=== PATIENT | male | born 1980 | race Caucasian/White ===

== ENCOUNTER 2020-05-30 23:06 | Inpatient (IN) | payer MEDICAID ==
[~2020-05-30] VITALS: Ht 188 cm; Wt 90.9 kg
[2020-05-31] VITALS (14 sets, daily range): BP systolic 97–138; BP diastolic 52–81
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
[2020-05-31] MEDS ORDERED: FAMOTIDINE 20 MG TABLET. PO ONE (00:30)
[2020-05-31] MEDS ORDERED: IV NORMAL SALINE 500ML BAG 500 ML IV ONE (00:30)
[2020-05-31] MEDS ORDERED: MAG HYDROX/ALUMINUM HYD/SIMETH 30 ML ORAL.SUSP PO ONE (00:30)
[2020-05-31] MEDS ORDERED: ONDANSETRON PF 4 MG/2 ML VIAL. IVP ONE (00:30)
--- NOTE | 2020-05-31 00:59 | RAD ---
INDICATION: Reason: COUGH / Spl. Instructions: / History: COMPARISON: May 21, 2020 FINDINGS: Single view of chest obtained. Cardiac silhouette is similar to prior. No definite new region of consolidation or edema. IMPRESSION: * No focal airspace consolidation or edema. Electronically signed by: Kadeem Cassidy MD (05/31/2020 12:56 AM) [id number]
[2020-05-31 01:13] LABS: BASO % 1 % (0-3); EOS % 1 % (0-3); HEMATOCRIT 37.2 % (39.0-53.0); HEMOGLOBIN 12.6 g/dL (13.0-17.5); LYMPH # 1.2 x10^3/uL (1.0-4.8); LYMPH % 33 % (24-48); MEAN CORPUSCULAR HEMOGLOBIN 33 pg (25-35); MEAN CORPUSCULAR HGB CONC 34 g/dL (31-37); MEAN CORPUSCULAR VOLUME 96 fL (79-100); MONO # 0.4 x10^3/uL (0.0-1.1); MONO % 11 % (0-9); NEUT % 54 % (31-73); PLATELET COUNT 131 x10^3/uL (140-400); RED BLOOD COUNT 3.88 x10^6/uL (4.30-5.70); RED CELL DISTRIBUTION WIDTH 14.7 % (11.5-14.5); WHITE BLOOD COUNT 3.6 x10^3/uL (4.0-11.0)
[2020-05-31 01:19] LABS: CALCIUM 8.4 mg/dL (8.5-10.1); CREATININE 1.3 mg/dL (0.7-1.3); GFR 61.8; POTASSIUM 3.5 mmol/L (3.5-5.1); PROTHROMBIN TIME PATIENT 12.4 SEC (11.7-14.0)
[2020-05-31 01:25] LABS: ALBUMIN 3.4 g/dL (3.4-5.0); ALBUMIN/GLOBULIN RATIO 1.1 (1.0-1.7); TOTAL BILIRUBIN 0.2 mg/dL (0.2-1.0); TOTAL PROTEIN 6.4 g/dL (6.4-8.2)
[2020-05-31] MEDS ORDERED: CONTRAST GIVEN. MC PRN (02:15)
[2020-05-31] MEDS ORDERED: IOHEXOL 300 MG/ML 100ML VIAL. IV ONE (02:30)
[2020-05-31 02:52] LABS: BILIRUBIN,URINE NEGATIVE (NEG); CLARITY,URINE CLEAR; COLOR,URINE YELLOW; NITRITE,URINE NEGATIVE (NEG); PH,URINE 6.5 (<5.0-8.0); PROTEIN,URINE NEGATIVE (NEG-TRACE); UROBILINOGEN,URINE 0.2 mg/dL (0.2 mg/dL)
[2020-05-31 03:00] LABS: BACTERIA,URINE 0 /HPF (0-FEW); RBC,URINE 0 /HPF (0-2); SQUAMOUS EPITHELIAL CELL,UR OCC /LPF; WBC,URINE OCC /HPF (0-4)
--- NOTE | 2020-05-31 03:28 | RAD ---
INDICATION: Reason: fb IN RECTUM OMNI 300, 75 ML IV / Spl. Instructions: / History: COMPARISON: None. TECHNIQUE: Axial CT images obtained through the abdomen and pelvis with contrast. One or more of the following individualized dose reduction techniques were utilized for this examination: 1. Automated exposure control; 2. Adjustment of the mA and/or kV according to patient size; 3. Use of iterative reconstruction technique. FINDINGS: Abdominal aorta is nonaneurysmal. No intrahepatic bile duct dilation. No peripancreatic fluid collection. Spleen unremarkable. No hydronephrosis. Excreted contrast in the kidneys and urinary bladder with some air in the urinary bladder. There are 2 high density foreign bodies seen within the distal sigmoid and rectal region. They measure approximately 50 x 15 mm each with one of them more vertically oriented and the other more horizontally oriented. There is some adjacent haziness to the fat. No evidence of bowel obstruction. Definite intraperitoneal free air is not seen. Postoperative changes to the disc space at L4-5 with metallic spacer. IMPRESSION: * There are 2 high density foreign bodies seen within the distal sigmoid to rectal region. There is some adjacent edema in the fat which could be from associated inflammation of the bowel but no adjacent free air is identified. Electronically signed by: Kadeem Cassidy MD (05/31/2020 3:25 AM) [id number]
[2020-05-31] MEDS ORDERED: fentaNYL PF VIAL 100 MCG/2 ML VIAL IV PRN (04:15)
[2020-05-31] MEDS ORDERED: PIPERACILLIN/TAZOBACTAM 4.5 GM in IV NORMAL SALINE 100ML 100 ML IV ONE (04:30)
[2020-05-31] MEDS ORDERED: PANTOPRAZOLE IV PUSH 40 MG VIAL. IVP ONE ×2 (04:30→10:45)
[2020-05-31] MEDS ORDERED: HYDROmorphone 2 MG/ML VIAL IV ONE (04:30)
[2020-05-31] MEDS: IV NORMAL SALINE 1000ML BAG 1,000 ML IV SCH ×2 (06:18→17:50)
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
[2020-05-31] MEDS ORDERED: IV RINGERS,LACTATED 1000ML 1,000 ML IV SCH (08:19)
[2020-05-31] MEDS ORDERED: PROCHLORPERAZINE 10 MG/2 ML VIAL. IV PRN (08:30)
[2020-05-31] MEDS ORDERED: ONDANSETRON PF 4 MG/2 ML VIAL. IV PRN (08:30)
[2020-05-31] MEDS ORDERED: KETOROLAC 30 MG/ML VIAL. ONE (08:48)
[2020-05-31] MEDS ORDERED: PROPOFOL 10 MG/ML (20ML) VIAL. IV ONE ×2 (08:48→11:36)
[2020-05-31] MEDS ORDERED: SEVOFLURANE 16 TO 30 MINUTES. IH ONE (08:48)
[2020-05-31] MEDS ORDERED: LIDOCAINE 2% PF 5 ML VIAL. ONE ×2 (08:48→11:36)
[2020-05-31] MEDS ORDERED: ONDANSETRON PF 4 MG/2 ML VIAL. ONE (08:49)
[2020-05-31] MEDS ORDERED: DEXAMETHASONE SOD PHOS 4 MG/ML VIAL ONE (08:49)
[2020-05-31] MEDS ORDERED: ROCURONIUM 50 MG/5 ML VIAL. ONE (08:52)
--- NOTE | 2020-05-31 09:00 | PDOC1 ---
History and Physical Date of Admission Date of Admission DATE: 05/31/20 TIME: 08:56 History of Present Illness History of Present Illness Mr. Garcia, is a 39 year old male admiited for worsening abd pain, pain and pressure, and taken to the OR this AM for a foreign body in his rectum. Patient states that for the last 2 weeks he has had pain constantly in his epigastrium described as a pressure sensation that does not seem to radiate but is constant. he also vomited blood yesterday. However he denies melena, hematochezia or change in stool. taken to the OR this AM with Dr. Crow, Past Medical History Cardiovascular: No pertinent hx Pulmonary: No pertinent hx GI: No pertinent hx Heme/Onc: No pertinent hx Hepatobiliary: No pertinent hx Psych: No pertinent hx Rheumatologic: No pertinent hx Infectious disease: No pertinent hx ENT: No pertinent hx Renal/: No pertinent hx Endocrine: No pertinent hx Dermatology: No pertinent hx Past Surgical History Past Surgical History: No pertinent history Family History Family History: No Significant Social History Smoke: <1 pack per day ALCOHOL: occassional Drugs: None Current Problem List Problem List Problems Medical Problems: (1) Foreign body in colon, initial encounter Status: Acute (2) Vomiting of blood Status: Acute Current Medications Current Medications Current Medications Al Hydroxide/Mg Hydroxide (Mylanta Plus Xs) 30 ml 1X ONCE PO Last administered on 05/31/20at 01:11; Start 05/31/20 at 00:30; Stop 05/31/20 at 00:31; Status DC Sodium Chloride 500 ml @ 500 mls/hr 1X ONCE IV Last administered on 05/31/20at 01:11; Start 05/31/20 at 00:30; Stop 05/31/20 at 01:29; Status DC Famotidine (Pepcid) 20 mg 1X ONCE PO Last administered on 05/31/20at 01:11; Start 05/31/20 at 00:30; Stop 05/31/20 at 00:31; Status DC Ondansetron HCl (Zofran) 4 mg 1X ONCE IVP Last administered on 05/31/20at 01:11; Start 05/31/20 at 00:30; Stop 05/31/20 at 00:31; Status DC Iohexol (Omnipaque 300 Mg/ml) 75 ml 1X ONCE IV Last administered on 05/31/20at 02:45; Start 05/31/20 at 02:30; Stop 05/31/20 at 02:31; Status DC Info (CONTRAST GIVEN -- Rx MONITORING) 1 each PRN DAILY PRN MC SEE COMMENTS; Start 05/31/20 at 02:15; Stop 06/02/20 at 02:14 Hydromorphone HCl (Dilaudid) 1 mg 1X ONCE IV Last administered on 05/31/20at 04:57; Start 05/31/20 at 04:30; Stop 05/31/20 at 04:31; Status DC Piperacillin Sod/ Tazobactam Sod 4.5 gm/Sodium Chloride 100 ml @ 200 mls/hr 1X ONCE IV Last administered on 05/31/20at 04:56; Start 05/31/20 at 04:30; Stop 05/31/20 at 04:59; Status DC Fentanyl Citrate (Fentanyl 2ml Vial) 50 mcg PRN Q1HR PRN IV SEVERE PAIN 7-10 Last administered on 05/31/20at 07:49; Start 05/31/20 at 04:15; Stop 06/01/20 at 04:14 Sodium Chloride 1,000 ml @ 75 mls/hr [id number] IV Last administered on 05/31/20at 06:18; Start 05/31/20 at 04:30; Stop 06/01/20 at 04:29 Pantoprazole Sodium (PROTONIX VIAL for IV PUSH) 80 mg 1X ONCE IVP Last administered on 05/31/20at 06:18; Start 05/31/20 at 04:30; Stop 05/31/20 at 04:31; Status DC Ondansetron HCl (Zofran) 4 mg PRN Q6HRS PRN IV NAUSEA/VOMITING; Start 05/31/20 at 08:30; Stop 06/01/20 at 08:29 Ringer's Solution 1,000 ml @ 30 mls/hr Q24H IV ; Start 05/31/20 at 08:19; Stop 05/31/20 at 20:18 Prochlorperazine Edisylate (Compazine) 5 mg PACU PRN PRN IV NAUSEA, MRX1; Start 05/31/20 at 08:30; Stop 06/01/20 at 08:29 Sevoflurane (Ultane) 15 ml STK-MED ONCE IH ; Start 05/31/20 at 08:48; Stop 05/31/20 at 08:49; Status DC Propofol (Diprivan) 200 mg STK-MED ONCE IV ; Start 05/31/20 at 08:48; Stop 05/31/20 at 08:49; Status DC Lidocaine HCl (Lidocaine Pf 2% Vial) 5 ml STK-MED ONCE .ROUTE ; Start 05/31/20 at 08:48; Stop 05/31/20 at 08:49; Status DC Ketorolac Tromethamine (Toradol 30mg Vial) 30 mg STK-MED ONCE .ROUTE ; Start 05/31/20 at 08:48; Stop 05/31/20 at 08:49; Status DC Ondansetron HCl (Zofran) 4 mg STK-MED ONCE .ROUTE ; Start 05/31/20 at 08:49; Stop 05/31/20 at 08:49; Status DC Dexamethasone Sodium Phosphate (Decadron) 4 mg STK-MED ONCE .ROUTE ; Start 05/31/20 at 08:49; Stop 05/31/20 at 08:49; Status DC Rocuronium [place] (Zemuron) 50 mg STK-MED ONCE .ROUTE ; Start 05/31/20 at 08:52; Stop 05/31/20 at 08:53; Status DC Allergies Allergies: Coded Allergies: ketorolac (Verified Allergy, Severe, hives, 05/31/20) morphine (Verified Allergy, Severe, hives, 05/31/20) prochlorperazine (Verified Allergy, Intermediate, restlessness, 05/31/20) ROS General: No: Chills, Night Sweats, Fatigue, Malaise, Appetite, Other PSYCHOLOGICAL ROS: No: Anxiety, Behavioral Disorder, Concentration difficultie, Decreased libido, Depression, Disorientation, Hallucinations, Hostility, Irritablity, Memory difficulties, Mood Swings, Obsessive thoughts, Physical abuse, Sexual abuse, Sleep disturbances, Suicidal ideation, Other Eyes: No Blurry vision, No Decreased vision, No Double vision, No Dry eyes, No Excessive tearing, No Eye Pain, No Itchy Eyes, No Loss of vision, No Photophobia, No Scotomata, No Uses contacts, No Uses glasses, No Other HEENT: No: Heacaches, Visual Changes, Hearing change, Nasal congestion, Nasal discharge, Oral lesions, Sinus pain, Sore Throat, Epistaxis, Sneezing, Snoring, Tinnitus, Vertigo, Vocal changes, Other Respiratory: No: Cough, Hemoptysis, Orthopnea, Pleuritic Pain, Shortness of breath, SOB with excertion, Sputum Changes, Stridor, Tachypnea, Wheezing, Other Cardiovascular: No Chest Pain, No Palpitations, No Orthopnea, No Paroxysmal Noc. Dyspnea, No Edema, No Lt Headedness, No Other Gastrointestinal: Yes Other (burn); No Nausea, No Vomiting, No Abdominal Pain, No Diarrhea, No Constipation, No Melena, No Hematochezia Genitourinary: No Dysuria, No Frequency, No Incontinence, No Hematuria, No Retention, No Discharge, No Urgency, No Pain, No Flank Pain, No Other, No , No , No , No , No , No , No Musculoskeletal: No Gait Disturbance, No Joint Pain, No Joint Stiffness, No Joint Swelling, No Muscle Pain, No Muscular Weakness, No Pain In:, No Swelling In:, No Other Neurological: No Behavorial Changes, No Bowel/Bladder ControlChng, No Confusion, No Dizziness, No Gait Disturbance, No Headaches, No Impaired Coord/balance, No Memory Loss, No Numbness/Tingling, No Seizures, No Speech Problems, No Tremors, No Visual Changes, No Weakness, No Other Skin: No Dry Skin, No Eczema, No Hair Changes, No Lumps, No Mole Changes, No Mottling, No Nail Changes, No Pruritus, No Rash, No Skin Lesion Changes, No Other, No Acne Physical Exam General: Alert, Cooperative HEENT: Atraumatic Extremities: No edema Skin: No rashes Neuro: Normal tone Psych/Mental Status: Mood NL Vitals Vitals Vital Signs Date Time Temp Pulse Resp B/P (MAP) Pulse Ox O2 Delivery O2 Flow Rate FiO2 05/31/20 08:26 16 Room Air 05/31/20 06:15 80 125/68 (87) 97 05/30/20 23:06 98.1 98.1 Labs Labs Laboratory Tests Test 05/31/20 00:58 05/31/20 02:43 05/31/20 05:05 White Blood Count 3.6 x10^3/uL (4.0-11.0) Red Blood Count 3.88 x10^6/uL (4.30-5.70) Hemoglobin 12.6 g/dL (13.0-17.5) Hematocrit 37.2 % (39.0-53.0) Mean Corpuscular Volume 96 fL (79-100) Mean Corpuscular Hemoglobin 33 pg (25-35) Mean Corpuscular Hemoglobin Concent 34 g/dL (31-37) Red Cell Distribution Width 14.7 % (11.5-14.5) Platelet Count 131 x10^3/uL (140-400) Neutrophils (%) (Auto) 54 % (31-73) Lymphocytes (%) (Auto) 33 % (24-48) Monocytes (%) (Auto) 11 % (0-9) Eosinophils (%) (Auto) 1 % (0-3) Basophils (%) (Auto) 1 % (0-3) Neutrophils # (Auto) 2.0 x10^3/uL (1.8-7.7) Lymphocytes # (Auto) 1.2 x10^3/uL (1.0-4.8) Monocytes # (Auto) 0.4 x10^3/uL (0.0-1.1) Eosinophils # (Auto) 0.0 x10^3/uL (0.0-0.7) Basophils # (Auto) 0.0 x10^3/uL (0.0-0.2) Prothrombin Time 12.4 SEC (11.7-14.0) Prothromb Time International Ratio 1.0 (0.8-1.1) Activated Partial Thromboplast Time 25 SEC (24-38) Sodium Level 147 mmol/L (136-145) Potassium Level 3.5 mmol/L (3.5-5.1) Chloride Level 108 mmol/L (98-107) Carbon Dioxide Level 29 mmol/L (21-32) Anion Gap 10 (6-14) Blood Urea Nitrogen 17 mg/dL (8-26) Creatinine 1.3 mg/dL (0.7-1.3) Estimated GFR (Cockcroft-Gault) 61.8 BUN/Creatinine Ratio 13 (6-20) Glucose Level 82 mg/dL (70-99) Calcium Level 8.4 mg/dL (8.5-10.1) Total Bilirubin 0.2 mg/dL (0.2-1.0) Aspartate Amino Transf (AST/SGOT) 140 U/L (15-37) Alanine Aminotransferase (ALT/SGPT) 181 U/L (16-63) Alkaline Phosphatase 43 U/L (46-116) Total Protein 6.4 g/dL (6.4-8.2) Albumin 3.4 g/dL (3.4-5.0) Albumin/Globulin Ratio 1.1 (1.0-1.7) Lipase 68 U/L (73-393) Urine Collection Type Unknown Urine Color Yellow Urine Clarity Clear Urine pH 6.5 (<5.0-8.0) Urine Specific Tropic >=1.030 (1.000-1.030) Urine Protein Negative mg/dL (NEG-TRACE) Urine Glucose (UA) Negative mg/dL (NEG) Urine Ketones (Stick) Negative mg/dL (NEG) Urine Blood Negative (NEG) Urine Nitrite Negative (NEG) Urine Bilirubin Negative (NEG) Urine Urobilinogen Dipstick 0.2 mg/dL (0.2 mg/dL) Urine Leukocyte Esterase Negative (NEG) Urine RBC 0 /HPF (0-2) Urine WBC Occ /HPF (0-4) Urine Squamous Epithelial Cells Occ /LPF Urine Bacteria 0 /HPF (0-FEW) Urine Mucus Slight /LPF SARS-CoV-2 Antigen (Rapid) Negative (NEGATIVE) Laboratory Tests Test 05/31/20 00:58 05/31/20 02:43 05/31/20 05:05 White Blood Count 3.6 x10^3/uL (4.0-11.0) Red Blood Count 3.88 x10^6/uL (4.30-5.70) Hemoglobin 12.6 g/dL (13.0-17.5) Hematocrit 37.2 % (39.0-53.0) Mean Corpuscular Volume 96 fL (79-100) Mean Corpuscular Hemoglobin 33 pg (25-35) Mean Corpuscular Hemoglobin Concent 34 g/dL (31-37) Red Cell Distribution Width 14.7 % (11.5-14.5) Platelet Count 131 x10^3/uL (140-400) Neutrophils (%) (Auto) 54 % (31-73) Lymphocytes (%) (Auto) 33 % (24-48) Monocytes (%) (Auto) 11 % (0-9) Eosinophils (%) (Auto) 1 % (0-3) Basophils (%) (Auto) 1 % (0-3) Neutrophils # (Auto) 2.0 x10^3/uL (1.8-7.7) Lymphocytes # (Auto) 1.2 x10^3/uL (1.0-4.8) Monocytes # (Auto) 0.4 x10^3/uL (0.0-1.1) Eosinophils # (Auto) 0.0 x10^3/uL (0.0-0.7) Basophils # (Auto) 0.0 x10^3/uL (0.0-0.2) Prothrombin Time 12.4 SEC (11.7-14.0) Prothromb Time International Ratio 1.0 (0.8-1.1) Activated Partial Thromboplast Time 25 SEC (24-38) Sodium Level 147 mmol/L (136-145) Potassium Level 3.5 mmol/L (3.5-5.1) Chloride Level 108 mmol/L (98-107) Carbon Dioxide Level 29 mmol/L (21-32) Anion Gap 10 (6-14) Blood Urea Nitrogen 17 mg/dL (8-26) Creatinine 1.3 mg/dL (0.7-1.3) Estimated GFR (Cockcroft-Gault) 61.8 BUN/Creatinine Ratio 13 (6-20) Glucose Level 82 mg/dL (70-99) Calcium Level 8.4 mg/dL (8.5-10.1) Total Bilirubin 0.2 mg/dL (0.2-1.0) Aspartate Amino Transf (AST/SGOT) 140 U/L (15-37) Alanine Aminotransferase (ALT/SGPT) 181 U/L (16-63) Alkaline Phosphatase 43 U/L (46-116) Total Protein 6.4 g/dL (6.4-8.2) Albumin 3.4 g/dL (3.4-5.0) Albumin/Globulin Ratio 1.1 (1.0-1.7) Lipase 68 U/L (73-393) Urine Collection Type Unknown Urine Color Yellow Urine Clarity Clear Urine pH 6.5 (<5.0-8.0) Urine Specific Tropic >=1.030 (1.000-1.030) Urine Protein Negative mg/dL (NEG-TRACE) Urine Glucose (UA) Negative mg/dL (NEG) Urine Ketones (Stick) Negative mg/dL (NEG) Urine Blood Negative (NEG) Urine Nitrite Negative (NEG) Urine Bilirubin Negative (NEG) Urine Urobilinogen Dipstick 0.2 mg/dL (0.2 mg/dL) Urine Leukocyte Esterase Negative (NEG) Urine RBC 0 /HPF (0-2) Urine WBC Occ /HPF (0-4) Urine Squamous Epithelial Cells Occ /LPF Urine Bacteria 0 /HPF (0-FEW) Urine Mucus Slight /LPF SARS-CoV-2 Antigen (Rapid) Negative (NEGATIVE) Images Images CT ABD * There are 2 high density foreign bodies seen within the distal sigmoid to rectal region. There is some adjacent edema in the fat which could be from associated inflammation of the bowel but no adjacent free air is identified. VTE Prophylaxis Ordered VTE Prophylaxis Devices: No VTE Pharmacological Prophylaxi: No Assessment/Plan Assessment/Plan to OR for surgery, foreign body removal from rectal, may need lap or open removal, if unable to remove through rectum, GERD foreign body rectum Justicifation of Admission Dx: Justifications for Admission: Justification of Admission Dx: Yes MADISON LEIVA MD May 31, 2020 09:00
[2020-05-31] MEDS ORDERED: ePHEDrine PF IN SALINE 50 MG/10 ML SYRINGE. IV ONE (09:40)
--- NOTE | 2020-05-31 09:49 | PDOC4 ---
Operative Note Operative Note Date: May 31, 2020 at 947 Preoperative diagnosis: Foreign body rectum Postoperative diagnosis: Same Procedure: Exam under anesthesia rigid proctoscopy with flexible sigmoidoscopy Surgeon: Tristin Specimen: Rectal foreign bodies x2 Dictation: Patient is a 39-year-old male admitted to the hospital with abdominal pain stating that he had a foreign body placed in the rectum and did not think it past CT scan shows foreign body within the rectosigmoid colon no evidence of perforation or free air. Procedure of exam under anesthesia with rigid proctoscopy flexible sigmoidoscopy possible laparotomy was explained to the patient detail risk benefits were also discussed including bleeding infection alternatives to this procedure also discussed with the patient who seemed to understand and gave both verbal and written consent to have the procedure performed. Patient was taken to the operating room placed in the supine position general anesthesia was initiated once patient was sleeping in bed is placed in the lithotomy positioning digital rectal exam was formed showed no masses or obstruction of the rectum a rigid proctoscope was then placed there was a small amount of stool within the rectal vault I did not see any foreign bodies this was passed about 12 cm still no foreign body seen in the right rigid proctoscope was removed and a flexible colonoscope was passed through the anus into the rectum passed cephalad at about 70 cm which all appeared to be normal n o evidence of perforation no foreign bodies were noted scope was retracted to the rectum a foreign body was then noted within the stool of the rectum the scope was removed using ring forceps the foreign body was grasped and removed a second foreign body was also removed. To be a package of Rolaids as well as Tums. Patient was awakened extubated in the operating room taken to recovery in stable condition all sponge instrument needle counts listed as correct estimated blood loss 0 DENNIS VARELA MD May 31, 2020 09:49
[2020-05-31] MEDS ORDERED: PROCHLORPERAZINE 10 MG/2 ML VIAL. ONE (10:04)
[2020-05-31] MEDS: fentaNYL PF VIAL 100 MCG/2 ML VIAL IVP PRN ×2 (10:15→10:30)
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
--- NOTE | 2020-05-31 12:33 | PDOC4 ---
PROCEDURE Procedure EGD Reported hematemesis , epigastric pain anesthesia - propofol E- mild distal esophagitis G- mild gastritis without ulcer D- mild duodenitis- without ulcer No Natalia Ellis seen - no source for hematemsis seen- Plan- pantoprazole GI cocktial OK for d/c later with outpt. follow up DRE MONTAÑO MD May 31, 2020 12:33
[2020-05-31] MEDS ORDERED: LIDO:MAALOX 1:1 20 ML SINGLE DOSE. PO PRN ×2 (12:45→14:15)
[2020-05-31] MEDS ORDERED: PANT20TA2 PO (13:58)
--- NOTE | 2020-05-31 14:02 | PDOC3 ---
Discharge Summary Visit Information Date of Admission: May 31, 2020 Date of Discharge: May 31, 2020 Final Diagnosis GERD foreign body rectum Problems Medical Problems: (1) Foreign body in colon, initial encounter Status: Acute (2) Vomiting of blood Status: Acute Brief Hospital Course Allergies Allergies Coded Allergies Type Severity Reaction Last Updated Verified ketorolac Allergy Severe hives 05/31/20 Yes morphine Allergy Severe hives 05/31/20 Yes prochlorperazine Allergy Intermediate restlessness 05/31/20 Yes Vital Signs Vital Signs Date Time Temp Pulse Resp B/P (MAP) Pulse Ox O2 Delivery O2 Flow Rate FiO2 05/31/20 13:00 97.9 75 20 138/78 (98) 96 Room Air 97.9 05/31/20 12:32 8 Lab Results Laboratory Tests Test 05/31/20 00:58 05/31/20 02:43 05/31/20 05:05 White Blood Count 3.6 x10^3/uL (4.0-11.0) Red Blood Count 3.88 x10^6/uL (4.30-5.70) Hemoglobin 12.6 g/dL (13.0-17.5) Hematocrit 37.2 % (39.0-53.0) Mean Corpuscular Volume 96 fL (79-100) Mean Corpuscular Hemoglobin 33 pg (25-35) Mean Corpuscular Hemoglobin Concent 34 g/dL (31-37) Red Cell Distribution Width 14.7 % (11.5-14.5) Platelet Count 131 x10^3/uL (140-400) Neutrophils (%) (Auto) 54 % (31-73) Lymphocytes (%) (Auto) 33 % (24-48) Monocytes (%) (Auto) 11 % (0-9) Eosinophils (%) (Auto) 1 % (0-3) Basophils (%) (Auto) 1 % (0-3) Neutrophils # (Auto) 2.0 x10^3/uL (1.8-7.7) Lymphocytes # (Auto) 1.2 x10^3/uL (1.0-4.8) Monocytes # (Auto) 0.4 x10^3/uL (0.0-1.1) Eosinophils # (Auto) 0.0 x10^3/uL (0.0-0.7) Basophils # (Auto) 0.0 x10^3/uL (0.0-0.2) Prothrombin Time 12.4 SEC (11.7-14.0) Prothromb Time International Ratio 1.0 (0.8-1.1) Activated Partial Thromboplast Time 25 SEC (24-38) Sodium Level 147 mmol/L (136-145) Potassium Level 3.5 mmol/L (3.5-5.1) Chloride Level 108 mmol/L (98-107) Carbon Dioxide Level 29 mmol/L (21-32) Anion Gap 10 (6-14) Blood Urea Nitrogen 17 mg/dL (8-26) Creatinine 1.3 mg/dL (0.7-1.3) Estimated GFR (Cockcroft-Gault) 61.8 BUN/Creatinine Ratio 13 (6-20) Glucose Level 82 mg/dL (70-99) Calcium Level 8.4 mg/dL (8.5-10.1) Total Bilirubin 0.2 mg/dL (0.2-1.0) Aspartate Amino Transf (AST/SGOT) 140 U/L (15-37) Alanine Aminotransferase (ALT/SGPT) 181 U/L (16-63) Alkaline Phosphatase 43 U/L (46-116) Total Protein 6.4 g/dL (6.4-8.2) Albumin 3.4 g/dL (3.4-5.0) Albumin/Globulin Ratio 1.1 (1.0-1.7) Lipase 68 U/L (73-393) Urine Collection Type Unknown Urine Color Yellow Urine Clarity Clear Urine pH 6.5 (<5.0-8.0) Urine Specific [place] >=1.030 (1.000-1.030) Urine Protein Negative mg/dL (NEG-TRACE) Urine Glucose (UA) Negative mg/dL (NEG) Urine Ketones (Stick) Negative mg/dL (NEG) Urine Blood Negative (NEG) Urine Nitrite Negative (NEG) Urine Bilirubin Negative (NEG) Urine Urobilinogen Dipstick 0.2 mg/dL (0.2 mg/dL) Urine Leukocyte Esterase Negative (NEG) Urine RBC 0 /HPF (0-2) Urine WBC Occ /HPF (0-4) Urine Squamous Epithelial Cells Occ /LPF Urine Bacteria 0 /HPF (0-FEW) Urine Mucus Slight /LPF SARS-CoV-2 Antigen (Rapid) Negative (NEGATIVE) Laboratory Tests Test 05/31/20 00:58 05/31/20 02:43 05/31/20 05:05 White Blood Count 3.6 x10^3/uL (4.0-11.0) Red Blood Count 3.88 x10^6/uL (4.30-5.70) Hemoglobin 12.6 g/dL (13.0-17.5) Hematocrit 37.2 % (39.0-53.0) Mean Corpuscular Volume 96 fL (79-100) Mean Corpuscular Hemoglobin 33 pg (25-35) Mean Corpuscular Hemoglobin Concent 34 g/dL (31-37) Red Cell Distribution Width 14.7 % (11.5-14.5) Platelet Count 131 x10^3/uL (140-400) Neutrophils (%) (Auto) 54 % (31-73) Lymphocytes (%) (Auto) 33 % (24-48) Monocytes (%) (Auto) 11 % (0-9) Eosinophils (%) (Auto) 1 % (0-3) Basophils (%) (Auto) 1 % (0-3) Neutrophils # (Auto) 2.0 x10^3/uL (1.8-7.7) Lymphocytes # (Auto) 1.2 x10^3/uL (1.0-4.8) Monocytes # (Auto) 0.4 x10^3/uL (0.0-1.1) Eosinophils # (Auto) 0.0 x10^3/uL (0.0-0.7) Basophils # (Auto) 0.0 x10^3/uL (0.0-0.2) Prothrombin Time 12.4 SEC (11.7-14.0) Prothromb Time International Ratio 1.0 (0.8-1.1) Activated Partial Thromboplast Time 25 SEC (24-38) Sodium Level 147 mmol/L (136-145) Potassium Level 3.5 mmol/L (3.5-5.1) Chloride Level 108 mmol/L (98-107) Carbon Dioxide Level 29 mmol/L (21-32) Anion Gap 10 (6-14) Blood Urea Nitrogen 17 mg/dL (8-26) Creatinine 1.3 mg/dL (0.7-1.3) Estimated GFR (Cockcroft-Gault) 61.8 BUN/Creatinine Ratio 13 (6-20) Glucose Level 82 mg/dL (70-99) Calcium Level 8.4 mg/dL (8.5-10.1) Total Bilirubin 0.2 mg/dL (0.2-1.0) Aspartate Amino Transf (AST/SGOT) 140 U/L (15-37) Alanine Aminotransferase (ALT/SGPT) 181 U/L (16-63) Alkaline Phosphatase 43 U/L (46-116) Total Protein 6.4 g/dL (6.4-8.2) Albumin 3.4 g/dL (3.4-5.0) Albumin/Globulin Ratio 1.1 (1.0-1.7) Lipase 68 U/L (73-393) Urine Collection Type Unknown Urine Color Yellow Urine Clarity Clear Urine pH 6.5 (<5.0-8.0) Urine Specific [place] >=1.030 (1.000-1.030) Urine Protein Negative mg/dL (NEG-TRACE) Urine Glucose (UA) Negative mg/dL (NEG) Urine Ketones (Stick) Negative mg/dL (NEG) Urine Blood Negative (NEG) Urine Nitrite Negative (NEG) Urine Bilirubin Negative (NEG) Urine Urobilinogen Dipstick 0.2 mg/dL (0.2 mg/dL) Urine Leukocyte Esterase Negative (NEG) Urine RBC 0 /HPF (0-2) Urine WBC Occ /HPF (0-4) Urine Squamous Epithelial Cells Occ /LPF Urine Bacteria 0 /HPF (0-FEW) Urine Mucus Slight /LPF SARS-CoV-2 Antigen (Rapid) Negative (NEGATIVE) Brief Hospital Course Mr. Garcia is a 39 old admit with GERD pain, burning pain, had vomited blood,and had new abd pain. Taken to OR for foreign body in rectum, a roll of tums and a roll of rolaids was removed in OR by Dr. Crow, with GI compliant, Dr. Petersen performed and EGD that was clear, start PPI Discharge Information Condition at Discharge: Improved Follow Up: Weeks Disposition/Orders: D/C to Home Scheduled Pantoprazole Sodium (Protonix) 20 Mg Tablet., 1 TAB PO DAILY for GERD, #30 Prescribed by: MADISON LEIVA on 05/31/20 5107 Patient Instructions Patient Instructions a/d same Justicifation of Admission Dx: Justifications for Admission: Justification of Admission Dx: Yes MADISON LEIVA MD May 31, 2020 14:02
[2020-05-31] MEDS ORDERED: CALCIUM CARBONATE 500 MG TAB.CHEW PO PRN (14:15)
[2020-05-31] MEDS: oxyCODONE/APAP 5/325 1 TAB TABLET PO PRN ×2 (15:08→22:13)
[2020-06-01 03:12] VITALS: BP 128/79
[2020-06-01 05:11] LABS: BASO % 1 % (0-3); EOS % 1 % (0-3); HEMATOCRIT 33.4 % (39.0-53.0); HEMOGLOBIN 11.3 g/dL (13.0-17.5); LYMPH # 1.2 x10^3/uL (1.0-4.8); LYMPH % 26 % (24-48); MEAN CORPUSCULAR HEMOGLOBIN 33 pg (25-35); MEAN CORPUSCULAR HGB CONC 34 g/dL (31-37); MEAN CORPUSCULAR VOLUME 96 fL (79-100); MONO # 0.4 x10^3/uL (0.0-1.1); MONO % 10 % (0-9); NEUT # 2.9 x10^3/uL (1.8-7.7); NEUT % 63 % (31-73); PLATELET COUNT 107 x10^3/uL (140-400); RED BLOOD COUNT 3.48 x10^6/uL (4.30-5.70); RED CELL DISTRIBUTION WIDTH 14.8 % (11.5-14.5); WHITE BLOOD COUNT 4.6 x10^3/uL (4.0-11.0)
[2020-06-01 05:43] LABS: ALBUMIN 2.7 g/dL (3.4-5.0); ALBUMIN/GLOBULIN RATIO 1.1 (1.0-1.7); CALCIUM 8.1 mg/dL (8.5-10.1); CREATININE 0.9 mg/dL (0.7-1.3); GFR 94.4; POTASSIUM 3.2 mmol/L (3.5-5.1); TOTAL BILIRUBIN 0.2 mg/dL (0.2-1.0); TOTAL PROTEIN 5.2 g/dL (6.4-8.2)
[2020-06-01 07:00] VITALS: BP 139/95
[2020-06-01] MEDS: oxyCODONE/APAP 5/325 1 TAB TABLET PO PRN (09:16)
--- NOTE | 2020-06-01 09:37 | NUR ---
SW following. Discussed with RN, pt from home, regular diet, room air. RN advised no SW needs, anticipate discharge home today with self care.
--- NOTE | 2020-06-01 10:02 | PDOC ---
NOEL FINNEGAN REIMBURSEMENT COORDINATOR 06/01/20 1002: SURGICAL PROGRESS NOTE DATE: 06/01/20 TIME: 10:00 Subjective reports ongoing abdominal epigastric pain urinary issues Vital Signs Vital Signs Date Time Temp Pulse Resp B/P (MAP) Pulse Ox O2 Delivery O2 Flow Rate FiO2 06/01/20 09:16 97 Room Air 06/01/20 07:00 98.4 67 18 139/95 (110) 98.4 05/31/20 12:32 8 I&O Intake and Output 06/01/20 07:00 Intake Total 1510 ml Output Total 550 ml Balance 960 ml Intake Oral 810 ml IV Total 700 ml Output Urine Total 550 ml General: Alert, Cooperative Abdomen: Soft, No masses Labs Laboratory Tests Test 05/31/20 00:58 05/31/20 02:43 05/31/20 05:05 06/01/20 04:05 White Blood Count 3.6 x10^3/uL (4.0-11.0) 4.6 x10^3/uL (4.0-11.0) Red Blood Count 3.88 x10^6/uL (4.30-5.70) 3.48 x10^6/uL (4.30-5.70) Hemoglobin 12.6 g/dL (13.0-17.5) 11.3 g/dL (13.0-17.5) Hematocrit 37.2 % (39.0-53.0) 33.4 % (39.0-53.0) Mean Corpuscular Volume 96 fL (79-100) 96 fL (79-100) Mean Corpuscular Hemoglobin 33 pg (25-35) 33 pg (25-35) Mean Corpuscular Hemoglobin Concent 34 g/dL (31-37) 34 g/dL (31-37) Red Cell Distribution Width 14.7 % (11.5-14.5) 14.8 % (11.5-14.5) Platelet Count 131 x10^3/uL (140-400) 107 x10^3/uL (140-400) Neutrophils (%) (Auto) 54 % (31-73) 63 % (31-73) Lymphocytes (%) (Auto) 33 % (24-48) 26 % (24-48) Monocytes (%) (Auto) 11 % (0-9) 10 % (0-9) Eosinophils (%) (Auto) 1 % (0-3) 1 % (0-3) Basophils (%) (Auto) 1 % (0-3) 1 % (0-3) Neutrophils # (Auto) 2.0 x10^3/uL (1.8-7.7) 2.9 x10^3/uL (1.8-7.7) Lymphocytes # (Auto) 1.2 x10^3/uL (1.0-4.8) 1.2 x10^3/uL (1.0-4.8) Monocytes # (Auto) 0.4 x10^3/uL (0.0-1.1) 0.4 x10^3/uL (0.0-1.1) Eosinophils # (Auto) 0.0 x10^3/uL (0.0-0.7) 0.0 x10^3/uL (0.0-0.7) Basophils # (Auto) 0.0 x10^3/uL (0.0-0.2) 0.0 x10^3/uL (0.0-0.2) Prothrombin Time 12.4 SEC (11.7-14.0) Prothromb Time International Ratio 1.0 (0.8-1.1) Activated Partial Thromboplast Time 25 SEC (24-38) Sodium Level 147 mmol/L (136-145) 144 mmol/L (136-145) Potassium Level 3.5 mmol/L (3.5-5.1) 3.2 mmol/L (3.5-5.1) Chloride Level 108 mmol/L (98-107) 109 mmol/L (98-107) Carbon Dioxide Level 29 mmol/L (21-32) 27 mmol/L (21-32) Anion Gap 10 (6-14) 8 (6-14) Blood Urea Nitrogen 17 mg/dL (8-26) 21 mg/dL (8-26) Creatinine 1.3 mg/dL (0.7-1.3) 0.9 mg/dL (0.7-1.3) Estimated GFR (Cockcroft-Gault) 61.8 94.4 BUN/Creatinine Ratio 13 (6-20) 23 (6-20) Glucose Level 82 mg/dL (70-99) 100 mg/dL (70-99) Calcium Level 8.4 mg/dL (8.5-10.1) 8.1 mg/dL (8.5-10.1) Total Bilirubin 0.2 mg/dL (0.2-1.0) 0.2 mg/dL (0.2-1.0) Aspartate Amino Transf (AST/SGOT) 140 U/L (15-37) 55 U/L (15-37) Alanine Aminotransferase (ALT/SGPT) 181 U/L (16-63) 112 U/L (16-63) Alkaline Phosphatase 43 U/L (46-116) 47 U/L (46-116) Total Protein 6.4 g/dL (6.4-8.2) 5.2 g/dL (6.4-8.2) Albumin 3.4 g/dL (3.4-5.0) 2.7 g/dL (3.4-5.0) Albumin/Globulin Ratio 1.1 (1.0-1.7) 1.1 (1.0-1.7) Lipase 68 U/L (73-393) Urine Collection Type Unknown Urine Color Yellow Urine Clarity Clear Urine pH 6.5 (<5.0-8.0) Urine Specific [place] >=1.030 (1.000-1.030) Urine Protein Negative mg/dL (NEG-TRACE) Urine Glucose (UA) Negative mg/dL (NEG) Urine Ketones (Stick) Negative mg/dL (NEG) Urine Blood Negative (NEG) Urine Nitrite Negative (NEG) Urine Bilirubin Negative (NEG) Urine Urobilinogen Dipstick 0.2 mg/dL (0.2 mg/dL) Urine Leukocyte Esterase Negative (NEG) Urine RBC 0 /HPF (0-2) Urine WBC Occ /HPF (0-4) Urine Squamous Epithelial Cells Occ /LPF Urine Bacteria 0 /HPF (0-FEW) Urine Mucus Slight /LPF SARS-CoV-2 Antigen (Rapid) Negative (NEGATIVE) Laboratory Tests Test 06/01/20 04:05 White Blood Count 4.6 x10^3/uL (4.0-11.0) Red Blood Count 3.48 x10^6/uL (4.30-5.70) Hemoglobin 11.3 g/dL (13.0-17.5) Hematocrit 33.4 % (39.0-53.0) Mean Corpuscular Volume 96 fL (79-100) Mean Corpuscular Hemoglobin 33 pg (25-35) Mean Corpuscular Hemoglobin Concent 34 g/dL (31-37) Red Cell Distribution Width 14.8 % (11.5-14.5) Platelet Count 107 x10^3/uL (140-400) Neutrophils (%) (Auto) 63 % (31-73) Lymphocytes (%) (Auto) 26 % (24-48) Monocytes (%) (Auto) 10 % (0-9) Eosinophils (%) (Auto) 1 % (0-3) Basophils (%) (Auto) 1 % (0-3) Neutrophils # (Auto) 2.9 x10^3/uL (1.8-7.7) Lymphocytes # (Auto) 1.2 x10^3/uL (1.0-4.8) Monocytes # (Auto) 0.4 x10^3/uL (0.0-1.1) Eosinophils # (Auto) 0.0 x10^3/uL (0.0-0.7) Basophils # (Auto) 0.0 x10^3/uL (0.0-0.2) Sodium Level 144 mmol/L (136-145) Potassium Level 3.2 mmol/L (3.5-5.1) Chloride Level 109 mmol/L (98-107) Carbon Dioxide Level 27 mmol/L (21-32) Anion Gap 8 (6-14) Blood Urea Nitrogen 21 mg/dL (8-26) Creatinine 0.9 mg/dL (0.7-1.3) Estimated GFR (Cockcroft-Gault) 94.4 BUN/Creatinine Ratio 23 (6-20) Glucose Level 100 mg/dL (70-99) Calcium Level 8.1 mg/dL (8.5-10.1) Total Bilirubin 0.2 mg/dL (0.2-1.0) Aspartate Amino Transf (AST/SGOT) 55 U/L (15-37) Alanine Aminotransferase (ALT/SGPT) 112 U/L (16-63) Alkaline Phosphatase 47 U/L (46-116) Total Protein 5.2 g/dL (6.4-8.2) Albumin 2.7 g/dL (3.4-5.0) Albumin/Globulin Ratio 1.1 (1.0-1.7) Problem List Problems Medical Problems: (1) Foreign body in colon, initial encounter Status: Acute (2) Vomiting of blood Status: Acute Assessment/Plan no surgical needs at this time medical management GI note reviewed Justicifation of Admission Dx: Justifications for Admission: Justification of Admission Dx: Yes DENNIS VARELA MD 06/01/20 1205: SURGICAL PROGRESS NOTE Assessment/Plan Agree with Chepe's assessment and plan. Please reconsult if surgery is needed NOEL FINNEGAN APRN Jun 01, 2020 10:02 DENNIS VARELA MD Jun 01, 2020 12:05
--- NOTE | 2020-06-01 10:24 | PDOC ---
Date of Service: DATE: 06/01/20 TIME: 10:17 Subjective: Subjective: Periumbilical pain ("behind belly button") w/ movement. Tolerating diet and stooling. Says unable to urinate. Objective: Vital Signs: Vital Signs Date Time Temp Pulse Resp B/P (MAP) Pulse Ox O2 Delivery O2 Flow Rate FiO2 06/01/20 09:16 97 Room Air 06/01/20 07:00 98.4 67 18 139/95 (110) 98.4 05/31/20 12:32 8 Labs: Laboratory Tests Test 06/01/20 04:05 White Blood Count 4.6 x10^3/uL Red Blood Count 3.48 x10^6/uL Hemoglobin 11.3 g/dL Hematocrit 33.4 % Mean Corpuscular Volume 96 fL Mean Corpuscular Hemoglobin 33 pg Mean Corpuscular Hemoglobin Concent 34 g/dL Red Cell Distribution Width 14.8 % Platelet Count 107 x10^3/uL Neutrophils (%) (Auto) 63 % Lymphocytes (%) (Auto) 26 % Monocytes (%) (Auto) 10 % Eosinophils (%) (Auto) 1 % Basophils (%) (Auto) 1 % Neutrophils # (Auto) 2.9 x10^3/uL Lymphocytes # (Auto) 1.2 x10^3/uL Monocytes # (Auto) 0.4 x10^3/uL Eosinophils # (Auto) 0.0 x10^3/uL Basophils # (Auto) 0.0 x10^3/uL Sodium Level 144 mmol/L Potassium Level 3.2 mmol/L Chloride Level 109 mmol/L Carbon Dioxide Level 27 mmol/L Anion Gap 8 Blood Urea Nitrogen 21 mg/dL Creatinine 0.9 mg/dL Estimated GFR (Cockcroft-Gault) 94.4 BUN/Creatinine Ratio 23 Glucose Level 100 mg/dL Calcium Level 8.1 mg/dL Total Bilirubin 0.2 mg/dL Aspartate Amino Transf (AST/SGOT) 55 U/L Alanine Aminotransferase (ALT/SGPT) 112 U/L Alkaline Phosphatase 47 U/L Total Protein 5.2 g/dL Albumin 2.7 g/dL Albumin/Globulin Ratio 1.1 Imaging: EGD for reported hematemesis, epigastric 05/31/20 E- mild distal esophagitis G- mild gastritis without ulcer D- mild duodenitis- without ulcer No Natalia Ellis seen - no source for hematemsis seen- Plan- pantoprazole GI cocktial OK for d/c later with outpt. follow up CT A/P IMPRESSION: * There are 2 high density foreign bodies seen within the distal sigmoid to rectal region. There is some adjacent edema in the fat which could be from associated inflammation of the bowel but no adjacent free air is identified. PE: GEN: NAD, was sleeping LUNGS: CTAB HEART: RRR ABD: periumbilical discomfort, also some in epigastrium - tender to light touch NEURO/PSYCH: A & O 3 A/P: Abdominal pain Normocytic anemia, thrombocytopenia, elevated AST and ALT (better) Esophagitis, gastritis, duodenitis Rectal foreign body (package of Rolaids and Tums) s/p exam under anesthesia/proctoscopy/sigmoidoscopy COVID negative -- Pain is ongoing - ?muscular component Defer urinary issues to primary. Restart PPI (PO). Justicifation of Admission Dx: Justifications for Admission: Justification of Admission Dx: Yes YAMILKA HILTON Jun 01, 2020 10:24
[2020-06-01 11:00] VITALS: BP 133/82
[2020-06-01] MEDS ORDERED: POTASSIUM CHLORIDE 10 MEQ TABLET.ER. PO ONE (13:30)
[2020-06-01] MEDS ORDERED: diphenhydrAMINE 50 MG/ML VIAL IVP PRN (13:45)
--- NOTE | 2020-06-01 13:52 | PDOC ---
PROGRESS NOTES Date of Service: DATE: 06/01/20 TIME: 13:40 Chief Complaint Chief Complaint Abdominal pain History of Present Illness History of Present Illness Patient reports worsening abdominal pain. States pain feels more like pressure, and has been present since arrival to the ED. He had had a bowel movement and urinated today. Admits to some discomfort while urinating. He reports some dark urine, but no overt blood. Patient requesting Benadryl, as this helps with his abdominal pain. Vitals Vitals Vital Signs Date Time Temp Pulse Resp B/P (MAP) Pulse Ox O2 Delivery O2 Flow Rate FiO2 06/01/20 11:00 98.8 65 16 133/82 (99) 96 Room Air 8.0 98.8 Physical Exam General: Alert, Cooperative Heart: Regular rate, Normal S1, Normal S2 Abdomen: Soft, No masses, Other (Abdominal tenderness in RLQ and LLQ) Extremities: No edema Skin: No rashes, Other (Bruising noted to right lower abdomen) Labs LABS Laboratory Tests Test 06/01/20 04:05 White Blood Count 4.6 x10^3/uL (4.0-11.0) Red Blood Count 3.48 x10^6/uL (4.30-5.70) Hemoglobin 11.3 g/dL (13.0-17.5) Hematocrit 33.4 % (39.0-53.0) Mean Corpuscular Volume 96 fL (79-100) Mean Corpuscular Hemoglobin 33 pg (25-35) Mean Corpuscular Hemoglobin Concent 34 g/dL (31-37) Red Cell Distribution Width 14.8 % (11.5-14.5) Platelet Count 107 x10^3/uL (140-400) Neutrophils (%) (Auto) 63 % (31-73) Lymphocytes (%) (Auto) 26 % (24-48) Monocytes (%) (Auto) 10 % (0-9) Eosinophils (%) (Auto) 1 % (0-3) Basophils (%) (Auto) 1 % (0-3) Neutrophils # (Auto) 2.9 x10^3/uL (1.8-7.7) Lymphocytes # (Auto) 1.2 x10^3/uL (1.0-4.8) Monocytes # (Auto) 0.4 x10^3/uL (0.0-1.1) Eosinophils # (Auto) 0.0 x10^3/uL (0.0-0.7) Basophils # (Auto) 0.0 x10^3/uL (0.0-0.2) Sodium Level 144 mmol/L (136-145) Potassium Level 3.2 mmol/L (3.5-5.1) Chloride Level 109 mmol/L (98-107) Carbon Dioxide Level 27 mmol/L (21-32) Anion Gap 8 (6-14) Blood Urea Nitrogen 21 mg/dL (8-26) Creatinine 0.9 mg/dL (0.7-1.3) Estimated GFR (Cockcroft-Gault) 94.4 BUN/Creatinine Ratio 23 (6-20) Glucose Level 100 mg/dL (70-99) Calcium Level 8.1 mg/dL (8.5-10.1) Total Bilirubin 0.2 mg/dL (0.2-1.0) Aspartate Amino Transf (AST/SGOT) 55 U/L (15-37) Alanine Aminotransferase (ALT/SGPT) 112 U/L (16-63) Alkaline Phosphatase 47 U/L (46-116) Total Protein 5.2 g/dL (6.4-8.2) Albumin 2.7 g/dL (3.4-5.0) Albumin/Globulin Ratio 1.1 (1.0-1.7) Review of Systems Review of Systems Abdominal pain. Dark urine, dysuria. No nausea, no vomiting, no constipation, no fever. Assessment and Plan Assessmemt and Plan Problems Medical Problems: (1) Foreign body in colon, initial encounter Status: Acute (2) Vomiting of blood Status: Acute Plan: Will evaluate for signs of kidney stone with repeat UA and micro. Pain management is currently an issue. Increased PO pain medication and added Benadryl for comfort. Comment Review of Relevant I have reviewed the following items ruddy (where applicable) has been applied. Labs Laboratory Tests Test 05/31/20 00:58 05/31/20 02:43 05/31/20 05:05 06/01/20 04:05 White Blood Count 3.6 x10^3/uL (4.0-11.0) 4.6 x10^3/uL (4.0-11.0) Red Blood Count 3.88 x10^6/uL (4.30-5.70) 3.48 x10^6/uL (4.30-5.70) Hemoglobin 12.6 g/dL (13.0-17.5) 11.3 g/dL (13.0-17.5) Hematocrit 37.2 % (39.0-53.0) 33.4 % (39.0-53.0) Mean Corpuscular Volume 96 fL (79-100) 96 fL (79-100) Mean Corpuscular Hemoglobin 33 pg (25-35) 33 pg (25-35) Mean Corpuscular Hemoglobin Concent 34 g/dL (31-37) 34 g/dL (31-37) Red Cell Distribution Width 14.7 % (11.5-14.5) 14.8 % (11.5-14.5) Platelet Count 131 x10^3/uL (140-400) 107 x10^3/uL (140-400) Neutrophils (%) (Auto) 54 % (31-73) 63 % (31-73) Lymphocytes (%) (Auto) 33 % (24-48) 26 % (24-48) Monocytes (%) (Auto) 11 % (0-9) 10 % (0-9) Eosinophils (%) (Auto) 1 % (0-3) 1 % (0-3) Basophils (%) (Auto) 1 % (0-3) 1 % (0-3) Neutrophils # (Auto) 2.0 x10^3/uL (1.8-7.7) 2.9 x10^3/uL (1.8-7.7) Lymphocytes # (Auto) 1.2 x10^3/uL (1.0-4.8) 1.2 x10^3/uL (1.0-4.8) Monocytes # (Auto) 0.4 x10^3/uL (0.0-1.1) 0.4 x10^3/uL (0.0-1.1) Eosinophils # (Auto) 0.0 x10^3/uL (0.0-0.7) 0.0 x10^3/uL (0.0-0.7) Basophils # (Auto) 0.0 x10^3/uL (0.0-0.2) 0.0 x10^3/uL (0.0-0.2) Prothrombin Time 12.4 SEC (11.7-14.0) Prothromb Time International Ratio 1.0 (0.8-1.1) Activated Partial Thromboplast Time 25 SEC (24-38) Sodium Level 147 mmol/L (136-145) 144 mmol/L (136-145) Potassium Level 3.5 mmol/L (3.5-5.1) 3.2 mmol/L (3.5-5.1) Chloride Level 108 mmol/L (98-107) 109 mmol/L (98-107) Carbon Dioxide Level 29 mmol/L (21-32) 27 mmol/L (21-32) Anion Gap 10 (6-14) 8 (6-14) Blood Urea Nitrogen 17 mg/dL (8-26) 21 mg/dL (8-26) Creatinine 1.3 mg/dL (0.7-1.3) 0.9 mg/dL (0.7-1.3) Estimated GFR (Cockcroft-Gault) 61.8 94.4 BUN/Creatinine Ratio 13 (6-20) 23 (6-20) Glucose Level 82 mg/dL (70-99) 100 mg/dL (70-99) Calcium Level 8.4 mg/dL (8.5-10.1) 8.1 mg/dL (8.5-10.1) Total Bilirubin 0.2 mg/dL (0.2-1.0) 0.2 mg/dL (0.2-1.0) Aspartate Amino Transf (AST/SGOT) 140 U/L (15-37) 55 U/L (15-37) Alanine Aminotransferase (ALT/SGPT) 181 U/L (16-63) 112 U/L (16-63) Alkaline Phosphatase 43 U/L (46-116) 47 U/L (46-116) Total Protein 6.4 g/dL (6.4-8.2) 5.2 g/dL (6.4-8.2) Albumin 3.4 g/dL (3.4-5.0) 2.7 g/dL (3.4-5.0) Albumin/Globulin Ratio 1.1 (1.0-1.7) 1.1 (1.0-1.7) Lipase 68 U/L (73-393) Urine Collection Type Unknown Urine Color Yellow Urine Clarity Clear Urine pH 6.5 (<5.0-8.0) Urine Specific [place] >=1.030 (1.000-1.030) Urine Protein Negative mg/dL (NEG-TRACE) Urine Glucose (UA) Negative mg/dL (NEG) Urine Ketones (Stick) Negative mg/dL (NEG) Urine Blood Negative (NEG) Urine Nitrite Negative (NEG) Urine Bilirubin Negative (NEG) Urine Urobilinogen Dipstick 0.2 mg/dL (0.2 mg/dL) Urine Leukocyte Esterase Negative (NEG) Urine RBC 0 /HPF (0-2) Urine WBC Occ /HPF (0-4) Urine Squamous Epithelial Cells Occ /LPF Urine Bacteria 0 /HPF (0-FEW) Urine Mucus Slight /LPF SARS-CoV-2 Antigen (Rapid) Negative (NEGATIVE) Laboratory Tests Test 06/01/20 04:05 White Blood Count 4.6 x10^3/uL (4.0-11.0) Red Blood Count 3.48 x10^6/uL (4.30-5.70) Hemoglobin 11.3 g/dL (13.0-17.5) Hematocrit 33.4 % (39.0-53.0) Mean Corpuscular Volume 96 fL (79-100) Mean Corpuscular Hemoglobin 33 pg (25-35) Mean Corpuscular Hemoglobin Concent 34 g/dL (31-37) Red Cell Distribution Width 14.8 % (11.5-14.5) Platelet Count 107 x10^3/uL (140-400) Neutrophils (%) (Auto) 63 % (31-73) Lymphocytes (%) (Auto) 26 % (24-48) Monocytes (%) (Auto) 10 % (0-9) Eosinophils (%) (Auto) 1 % (0-3) Basophils (%) (Auto) 1 % (0-3) Neutrophils # (Auto) 2.9 x10^3/uL (1.8-7.7) Lymphocytes # (Auto) 1.2 x10^3/uL (1.0-4.8) Monocytes # (Auto) 0.4 x10^3/uL (0.0-1.1) Eosinophils # (Auto) 0.0 x10^3/uL (0.0-0.7) Basophils # (Auto) 0.0 x10^3/uL (0.0-0.2) Sodium Level 144 mmol/L (136-145) Potassium Level 3.2 mmol/L (3.5-5.1) Chloride Level 109 mmol/L (98-107) Carbon Dioxide Level 27 mmol/L (21-32) Anion Gap 8 (6-14) Blood Urea Nitrogen 21 mg/dL (8-26) Creatinine 0.9 mg/dL (0.7-1.3) Estimated GFR (Cockcroft-Gault) 94.4 BUN/Creatinine Ratio 23 (6-20) Glucose Level 100 mg/dL (70-99) Calcium Level 8.1 mg/dL (8.5-10.1) Total Bilirubin 0.2 mg/dL (0.2-1.0) Aspartate Amino Transf (AST/SGOT) 55 U/L (15-37) Alanine Aminotransferase (ALT/SGPT) 112 U/L (16-63) Alkaline Phosphatase 47 U/L (46-116) Total Protein 5.2 g/dL (6.4-8.2) Albumin 2.7 g/dL (3.4-5.0) Albumin/Globulin Ratio 1.1 (1.0-1.7) Medications Current Medications Al Hydroxide/Mg Hydroxide (Mylanta Plus Xs) 30 ml 1X ONCE PO Last administered on 05/31/20 01:11; Start 05/31/20 at 00:30; Stop 05/31/20 at 00:31; Status DC Sodium Chloride 500 ml @ 500 mls/hr 1X ONCE IV Last administered on 05/31/20 01:11; Start 05/31/20 at 00:30; Stop 05/31/20 at 01:29; Status DC Famotidine (Pepcid) 20 mg 1X ONCE PO Last administered on 05/31/20 01:11; Start 05/31/20 at 00:30; Stop 05/31/20 at 00:31; Status DC Ondansetron HCl (Zofran) 4 mg 1X ONCE IVP Last administered on 05/31/20 01:11; Start 05/31/20 at 00:30; Stop 05/31/20 at 00:31; Status DC Iohexol (Omnipaque 300 Mg/ml) 75 ml 1X ONCE IV Last administered on 05/31/20at 02:45; Start 05/31/20 at 02:30; Stop 05/31/20 at 02:31; Status DC Info (CONTRAST GIVEN -- Rx MONITORING) 1 each PRN DAILY PRN MC SEE COMMENTS; Start 05/31/20 at 02:15; Stop 06/02/20 at 02:14 Hydromorphone HCl (Dilaudid) 1 mg 1X ONCE IV Last administered on 05/31/20at 04:57; Start 05/31/20 at 04:30; Stop 05/31/20 at 04:31; Status DC Piperacillin Sod/ Tazobactam Sod 4.5 gm/Sodium Chloride 100 ml @ 200 mls/hr 1X ONCE IV Last administered on 05/31/20at 04:56; Start 05/31/20 at 04:30; Stop 05/31/20 at 04:59; Status DC Fentanyl Citrate (Fentanyl 2ml Vial) 50 mcg PRN Q1HR PRN IV SEVERE PAIN 7-10 Last administered on 05/31/20at 07:49; Start 05/31/20 at 04:15; Stop 06/01/20 at 04:14; Status DC Sodium Chloride 1,000 ml @ 75 mls/hr [id number] IV Last administered on 05/31/20at 06:18; Start 05/31/20 at 04:30; Stop 06/01/20 at 04:29; Status DC Pantoprazole Sodium (PROTONIX VIAL for IV PUSH) 80 mg 1X ONCE IVP Last administered on 05/31/20at 06:18; Start 05/31/20 at 04:30; Stop 05/31/20 at 04:31; Status DC Ondansetron HCl (Zofran) 4 mg PRN Q6HRS PRN IV NAUSEA/VOMITING; Start 05/31/20 at 08:30; Stop 06/01/20 at 08:29; Status DC Ringer's Solution 1,000 ml @ 30 mls/hr Q24H IV ; Start 05/31/20 at 08:19; Stop 05/31/20 at 20:18; Status DC Prochlorperazine Edisylate (Compazine) 5 mg PACU PRN PRN IV NAUSEA, MRX1; Start 05/31/20 at 08:30; Stop 05/31/20 at 10:22; Status DC Sevoflurane (Ultane) 15 ml STK-MED ONCE IH ; Start 05/31/20 at 08:48; Stop 05/31/20 at 08:49; Status DC Propofol (Diprivan) 200 mg STK-MED ONCE IV ; Start 05/31/20 at 08:48; Stop 05/31/20 at 08:49; Status DC Lidocaine HCl (Lidocaine Pf 2% Vial) 5 ml STK-MED ONCE .ROUTE ; Start 05/31/20 at 08:48; Stop 05/31/20 at 08:49; Status DC Ketorolac Tromethamine (Toradol 30mg Vial) 30 mg STK-MED ONCE .ROUTE ; Start 05/31/20 at 08:48; Stop 05/31/20 at 08:49; Status DC Ondansetron HCl (Zofran) 4 mg STK-MED ONCE .ROUTE ; Start 05/31/20 at 08:49; Stop 05/31/20 at 08:49; Status DC Dexamethasone Sodium Phosphate (Decadron) 4 mg STK-MED ONCE .ROUTE ; Start 05/31/20 at 08:49; Stop 05/31/20 at 08:49; Status DC Rocuronium [place] (Zemuron) 50 mg STK-MED ONCE .ROUTE ; Start 05/31/20 at 08:52; Stop 05/31/20 at 08:53; Status DC Ephedrine Sulfate (ePHEDrine PF IN SALINE SYRINGE) 50 mg STK-MED ONCE IV ; Start 05/31/20 at 09:40; Stop 05/31/20 at 09:40; Status DC Prochlorperazine Edisylate (Compazine) 10 mg STK-MED ONCE .ROUTE ; Start 05/31/20 at 10:04; Stop 05/31/20 at 10:05; Status DC Fentanyl Citrate (Fentanyl 2ml Vial) 50 mcg PRN Q10MIN PRN IVP pain Last administered on 05/31/20at 10:30; Start 05/31/20 at 10:15 Pantoprazole Sodium (PROTONIX VIAL for IV PUSH) 40 mg 1X ONCE IVP Last administered on 05/31/20at 10:43; Start 05/31/20 at 10:45; Stop 05/31/20 at 10:46; Status DC Propofol (Diprivan) 200 mg STK-MED ONCE IV ; Start 05/31/20 at 11:36; Stop 05/31/20 at 11:36; Status DC Lidocaine HCl (Lidocaine Pf 2% Vial) 5 ml STK-MED ONCE .ROUTE ; Start 05/31/20 at 11:36; Stop 05/31/20 at 11:36; Status DC Multi-Ingredient Mouthwash/Gargle (Gi Cocktail) 20 ml PRN QID PRN PO CHEST PAIN Last administered on 05/31/20at 14:16; Start 05/31/20 at 12:45 Multi-Ingredient Mouthwash/Gargle (Gi Cocktail) 20 ml PRN QID PRN PO CHEST PAIN; Start 05/31/20 at 14:15; Stop 05/31/20 at 14:11; Status DC Calcium Carbonate/ Glycine (Tums) 500 mg PRN AFTMEALHC PRN PO INDIGESTION; Start 05/31/20 at 14:15 Oxycodone/ Acetaminophen (Percocet 5/325) 1 tab PRN Q4HRS PRN PO PAIN Last administered on 06/01/20at 09:16; Start 05/31/20 at 15:00; Stop 06/01/20 at 13:21; Status DC Pantoprazole Sodium (Protonix) 40 mg DAILYAC PO ; Start 06/02/20 at 07:30 Oxycodone/ Acetaminophen (Percocet 7.5/ 325) 1 tab PRN Q4HRS PRN PO PAIN; Start 06/01/20 at 13:30 Potassium Chloride (Klor-Con) 10 meq 1X ONCE PO ; Start 06/01/20 at 13:30; Stop 06/01/20 at 13:35; Status DC Active Scripts Active Protonix (Pantoprazole Sodium) 20 Mg Tablet. 1 Tab PO DAILY Vitals/I & O Vital Sign - Last 24 Hours 05/31/20 05/31/20 05/31/20 05/31/20 13:45 14:15 14:45 15:08 Pulse 92 90 89 Resp 16 B/P (MAP) 108/57 (74) 107/60 (76) 108/60 (76) O2 Delivery Room Air 8/16/05/31/20 05/31/20 05/31/20 15:45 16:27 16:45 19:24 Temp 98.0 98.7 98.0 98.7 Pulse 92 88 85 Resp 18 16 18 B/P (MAP) 106/56 (73) 105/56 (72) 97/52 (67) Pulse Ox 95 92 O2 Delivery Room Air Room Air Room Air 05/31/20 05/31/20 05/31/20 05/31/20 20:25 22:13 22:47 23:21 Temp 98.6 98.6 Pulse 71 Resp 18 B/P (MAP) 130/80 (97) Pulse Ox 96 O2 Delivery Room Air Room Air Room Air Room Air 06/01/20 06/01/20 06/01/20 06/01/20 03:12 07:00 08:00 09:16 Temp 98.0 98.4 98.0 98.4 Pulse 79 67 Resp 16 18 B/P (MAP) 128/79 (95) 139/95 (110) Pulse Ox 98 97 97 O2 Delivery Room Air Room Air Room Air 06/01/20 06/01/20 10:17 11:00 Temp 98.8 98.8 Pulse 65 Resp 16 B/P (MAP) 133/82 (99) Pulse Ox 97 96 O2 Delivery Room Air Room Air O2 Flow Rate 8.0 Intake and Output 05/31/20 05/31/20 06/01/20 15:00 23:00 07:00 Intake Total 710 ml 800 ml Output Total 550 ml Balance 710 ml 250 ml Justicifation of Admission Dx: Justifications for Admission: Justification of Admission Dx: Yes ROSITA FRANCO MD Jun 01, 2020 13:52
[2020-06-01] MEDS: oxyCODONE/APAP 7.5/325 1 TAB TABLET PO PRN ×2 (13:55→20:30)
[2020-06-01 14:53] LABS: BILIRUBIN,URINE NEGATIVE (NEG); CLARITY,URINE CLEAR; COLOR,URINE YELLOW; NITRITE,URINE NEGATIVE (NEG); PH,URINE 6.5 (<5.0-8.0); PROTEIN,URINE NEGATIVE (NEG-TRACE); UROBILINOGEN,URINE 0.2 mg/dL (0.2 mg/dL)
[2020-06-01 15:00] VITALS: BP 126/77
[2020-06-01 15:04] LABS: BARBITURATES NEG (NEG); BENZODIAZEPINES NEG (NEG); CANNABINOIDS NEG (NEG); COCAINE NEG (NEG); METHADONE NEG (NEG); OPIATES POS (NEG); PHENCYCLIDINE NEG (NEG)
[2020-06-01 15:05] LABS: AMPHETAMINE/METHAMPHETAMINE NEG (NEG)
[2020-06-01 15:08] LABS: BACTERIA,URINE 0 /HPF (0-FEW); RBC,URINE 0 /HPF (0-2); WBC,URINE RARE /HPF (0-4)
[2020-06-01] MEDS: DOCUSATE SODIUM 100 MG CAPSULE. PO SCH (16:42)
[2020-06-01 19:00] VITALS: BP 120/80
[2020-06-01] MEDS: diphenhydrAMINE 50 MG/ML VIAL IVP PRN (20:30)
[2020-06-01 23:00] VITALS: BP 128/67
[2020-06-02] MEDS: oxyCODONE/APAP 7.5/325 1 TAB TABLET PO PRN ×4 (02:46→21:59)
[2020-06-02] MEDS: diphenhydrAMINE 50 MG/ML VIAL IVP PRN ×4 (02:46→22:00)
[2020-06-02 03:00] VITALS: BP 137/90
[2020-06-02 07:00] VITALS: BP 133/85
[2020-06-02] MEDS: DOCUSATE SODIUM 100 MG CAPSULE. PO SCH (08:07)
[2020-06-02] MEDS: PANTOPRAZOLE 40 MG TABLET.DR. PO SCH (08:07)
--- NOTE | 2020-06-02 09:36 | NUR ---
SW following. Discussed with RN and Dr. Roblero, pt likely discharging home today with self care. No SW needs.
--- NOTE | 2020-06-02 09:44 | PDOC ---
Date of Service: DATE: 06/02/20 TIME: 09:41 Subjective: Subjective: Abdominal pain w/ movement - denies increased pain w/ eating. No n/v. Reports liquid stools. Urinating better. Objective: Vital Signs: Vital Signs Date Time Temp Pulse Resp B/P (MAP) Pulse Ox O2 Delivery O2 Flow Rate FiO2 06/02/20 09:15 98 Room Air 06/02/20 07:00 98.4 49 18 133/85 (101) 98.4 06/01/20 15:00 8.0 Labs: Laboratory Tests Test 06/01/20 13:50 Urine Collection Type Unknown Urine Color Yellow Urine Clarity Clear Urine pH 6.5 Urine Specific [place] 1.020 Urine Protein Negative mg/dL Urine Glucose (UA) Negative mg/dL Urine Ketones (Stick) Negative mg/dL Urine Blood Negative Urine Nitrite Negative Urine Bilirubin Negative Urine Urobilinogen Dipstick 0.2 mg/dL Urine Leukocyte Esterase Negative Urine RBC 0 /HPF Urine WBC Rare /HPF Urine Squamous Epithelial Cells None /LPF Urine Bacteria 0 /HPF Urine Mucus Mod /LPF Urine Opiates Screen Pos Urine Methadone Screen Neg Urine Barbiturates Neg Urine Phencyclidine Screen Neg Urine Amphetamine/Methamphetamine Neg Urine Benzodiazepines Screen Neg Urine Cocaine Screen Neg Urine Cannabinoids Screen Neg Urine Ethyl Alcohol Neg PE: GEN: NAD LUNGS: CTAB HEART: RRR ABD: non-specifically sore to light touch NEURO/PSYCH: A & O 3 A/P: Abdominal pain - ?MSK Normocytic anemia, thrombocytopenia, elevated AST and ALT (improved; Hep panel neg, liver ok on CT) Esophagitis, gastritis, duodenitis on EGD - on PPI Rectal foreign body - removed in OR COVID negative Urinary hesitancy - better -- DC per primary. Justicifation of Admission Dx: Justifications for Admission: Justification of Admission Dx: Yes YAMILKA HILTON Jun 02, 2020 09:44
--- NOTE | 2020-06-02 10:24 | EKG ---
[facility] [address] [place] [address] Test Date: 2020-05-30 Test Time: 23:19:34 Pat Name: JOSAFAT DANGELO Department: Room: [facility] Gender: M Pet Caregiver: : 1980 Requested By: JAVIER CHRISTIANSON Order Number: [id number] Reading MD: Measurements Intervals Moore Rate: 75 P: 34 WI: 178 QRS: -6 QRSD: 102 T: 28 QT: 380 QTc: 427 Interpretive Statements SINUS RHYTHM LEFTWARD AXIS NO SPECIFIC ECG ABNORMALITIES RI6.01 No previous ECG available for comparison
[2020-06-02 11:00] VITALS: BP 128/90
--- NOTE | 2020-06-02 13:40 | PDOC ---
PROGRESS NOTES Date of Service: DATE: 06/02/20 TIME: 13:34 Chief Complaint Chief Complaint Abdominal pain due to foreign body History of Present Illness History of Present Illness Patient denies any improvement in his abdominal pain. Describes pain as pressure on his stomach. Denies fever, vomiting, or nausea. Vitals Vitals Vital Signs Date Time Temp Pulse Resp B/P (MAP) Pulse Ox O2 Delivery O2 Flow Rate FiO2 06/02/20 11:00 98.4 55 16 128/90 (103) 94 Room Air 98.4 06/01/20 15:00 8.0 Physical Exam General: Alert, Cooperative Heart: Regular rate, Normal S1, Normal S2 Abdomen: Soft, No masses, Other (Abdominal tenderness and rigidity) Extremities: No edema Skin: No rashes, Other (Bruising noted to right lower abdomen) Labs LABS Laboratory Tests Test 06/01/20 13:50 Urine Collection Type Unknown Urine Color Yellow Urine Clarity Clear Urine pH 6.5 (<5.0-8.0) Urine Specific [place] 1.020 (1.000-1.030) Urine Protein Negative mg/dL (NEG-TRACE) Urine Glucose (UA) Negative mg/dL (NEG) Urine Ketones (Stick) Negative mg/dL (NEG) Urine Blood Negative (NEG) Urine Nitrite Negative (NEG) Urine Bilirubin Negative (NEG) Urine Urobilinogen Dipstick 0.2 mg/dL (0.2 mg/dL) Urine Leukocyte Esterase Negative (NEG) Urine RBC 0 /HPF (0-2) Urine WBC Rare /HPF (0-4) Urine Squamous Epithelial Cells None /LPF Urine Bacteria 0 /HPF (0-FEW) Urine Mucus Mod /LPF Urine Opiates Screen Pos (NEG) Urine Methadone Screen Neg (NEG) Urine Barbiturates Neg (NEG) Urine Phencyclidine Screen Neg (NEG) Urine Amphetamine/Methamphetamine Neg (NEG) Urine Benzodiazepines Screen Neg (NEG) Urine Cocaine Screen Neg (NEG) Urine Cannabinoids Screen Neg (NEG) Urine Ethyl Alcohol Neg (NEG) Review of Systems Review of Systems Abdominal pain. Denies nausea or vomiting. Denies fever. All other ROS negative. Assessment and Plan Assessmemt and Plan Problems Medical Problems: (1) Foreign body in colon, initial encounter Status: Acute (2) Vomiting of blood Status: Acute (3) Abdominal pain Status: Acute Plan: R/O perforation with upright abdominal XR. If negative, discharge with close PCP follow-up. Comment Review of Relevant I have reviewed the following items ruddy (where applicable) has been applied. Labs Laboratory Tests Test 06/01/20 04:05 06/01/20 13:50 White Blood Count 4.6 x10^3/uL (4.0-11.0) Red Blood Count 3.48 x10^6/uL (4.30-5.70) Hemoglobin 11.3 g/dL (13.0-17.5) Hematocrit 33.4 % (39.0-53.0) Mean Corpuscular Volume 96 fL (79-100) Mean Corpuscular Hemoglobin 33 pg (25-35) Mean Corpuscular Hemoglobin Concent 34 g/dL (31-37) Red Cell Distribution Width 14.8 % (11.5-14.5) Platelet Count 107 x10^3/uL (140-400) Neutrophils (%) (Auto) 63 % (31-73) Lymphocytes (%) (Auto) 26 % (24-48) Monocytes (%) (Auto) 10 % (0-9) Eosinophils (%) (Auto) 1 % (0-3) Basophils (%) (Auto) 1 % (0-3) Neutrophils # (Auto) 2.9 x10^3/uL (1.8-7.7) Lymphocytes # (Auto) 1.2 x10^3/uL (1.0-4.8) Monocytes # (Auto) 0.4 x10^3/uL (0.0-1.1) Eosinophils # (Auto) 0.0 x10^3/uL (0.0-0.7) Basophils # (Auto) 0.0 x10^3/uL (0.0-0.2) Sodium Level 144 mmol/L (136-145) Potassium Level 3.2 mmol/L (3.5-5.1) Chloride Level 109 mmol/L (98-107) Carbon Dioxide Level 27 mmol/L (21-32) Anion Gap 8 (6-14) Blood Urea Nitrogen 21 mg/dL (8-26) Creatinine 0.9 mg/dL (0.7-1.3) Estimated GFR (Cockcroft-Gault) 94.4 BUN/Creatinine Ratio 23 (6-20) Glucose Level 100 mg/dL (70-99) Calcium Level 8.1 mg/dL (8.5-10.1) Total Bilirubin 0.2 mg/dL (0.2-1.0) Aspartate Amino Transf (AST/SGOT) 55 U/L (15-37) Alanine Aminotransferase (ALT/SGPT) 112 U/L (16-63) Alkaline Phosphatase 47 U/L (46-116) Total Protein 5.2 g/dL (6.4-8.2) Albumin 2.7 g/dL (3.4-5.0) Albumin/Globulin Ratio 1.1 (1.0-1.7) Urine Collection Type Unknown Urine Color Yellow Urine Clarity Clear Urine pH 6.5 (<5.0-8.0) Urine Specific [place] 1.020 (1.000-1.030) Urine Protein Negative mg/dL (NEG-TRACE) Urine Glucose (UA) Negative mg/dL (NEG) Urine Ketones (Stick) Negative mg/dL (NEG) Urine Blood Negative (NEG) Urine Nitrite Negative (NEG) Urine Bilirubin Negative (NEG) Urine Urobilinogen Dipstick 0.2 mg/dL (0.2 mg/dL) Urine Leukocyte Esterase Negative (NEG) Urine RBC 0 /HPF (0-2) Urine WBC Rare /HPF (0-4) Urine Squamous Epithelial Cells None /LPF Urine Bacteria 0 /HPF (0-FEW) Urine Mucus Mod /LPF Urine Opiates Screen Pos (NEG) Urine Methadone Screen Neg (NEG) Urine Barbiturates Neg (NEG) Urine Phencyclidine Screen Neg (NEG) Urine Amphetamine/Methamphetamine Neg (NEG) Urine Benzodiazepines Screen Neg (NEG) Urine Cocaine Screen Neg (NEG) Urine Cannabinoids Screen Neg (NEG) Urine Ethyl Alcohol Neg (NEG) Laboratory Tests Test 06/01/20 13:50 Urine Collection Type Unknown Urine Color Yellow Urine Clarity Clear Urine pH 6.5 (<5.0-8.0) Urine Specific [place] 1.020 (1.000-1.030) Urine Protein Negative mg/dL (NEG-TRACE) Urine Glucose (UA) Negative mg/dL (NEG) Urine Ketones (Stick) Negative mg/dL (NEG) Urine Blood Negative (NEG) Urine Nitrite Negative (NEG) Urine Bilirubin Negative (NEG) Urine Urobilinogen Dipstick 0.2 mg/dL (0.2 mg/dL) Urine Leukocyte Esterase Negative (NEG) Urine RBC 0 /HPF (0-2) Urine WBC Rare /HPF (0-4) Urine Squamous Epithelial Cells None /LPF Urine Bacteria 0 /HPF (0-FEW) Urine Mucus Mod /LPF Urine Opiates Screen Pos (NEG) Urine Methadone Screen Neg (NEG) Urine Barbiturates Neg (NEG) Urine Phencyclidine Screen Neg (NEG) Urine Amphetamine/Methamphetamine Neg (NEG) Urine Benzodiazepines Screen Neg (NEG) Urine Cocaine Screen Neg (NEG) Urine Cannabinoids Screen Neg (NEG) Urine Ethyl Alcohol Neg (NEG) Medications Current Medications Al Hydroxide/Mg Hydroxide (Mylanta Plus Xs) 30 ml 1X ONCE PO Last administered on 05/31/20at 01:11; Start 05/31/20 at 00:30; Stop 05/31/20 at 00:31; Status DC Sodium Chloride 500 ml @ 500 mls/hr 1X ONCE IV Last administered on 05/31/20at 01:11; Start 05/31/20 at 00:30; Stop 05/31/20 at 01:29; Status DC Famotidine (Pepcid) 20 mg 1X ONCE PO Last administered on 05/31/20at 01:11; Start 05/31/20 at 00:30; Stop 05/31/20 at 00:31; Status DC Ondansetron HCl (Zofran) 4 mg 1X ONCE IVP Last administered on 05/31/20at 01:11; Start 05/31/20 at 00:30; Stop 05/31/20 at 00:31; Status DC Iohexol (Omnipaque 300 Mg/ml) 75 ml 1X ONCE IV Last administered on 05/31/20at 02:45; Start 05/31/20 at 02:30; Stop 05/31/20 at 02:31; Status DC Info (CONTRAST GIVEN -- Rx MONITORING) 1 each PRN DAILY PRN MC SEE COMMENTS; Start 05/31/20 at 02:15; Stop 06/02/20 at 02:14; Status DC Hydromorphone HCl (Dilaudid) 1 mg 1X ONCE IV Last administered on 05/31/20at 04:57; Start 05/31/20 at 04:30; Stop 05/31/20 at 04:31; Status DC Piperacillin Sod/ Tazobactam Sod 4.5 gm/Sodium Chloride 100 ml @ 200 mls/hr 1X ONCE IV Last administered on 05/31/20at 04:56; Start 05/31/20 at 04:30; Stop 05/31/20 at 04:59; Status DC Fentanyl Citrate (Fentanyl 2ml Vial) 50 mcg PRN Q1HR PRN IV SEVERE PAIN 7-10 Last administered on 05/31/20at 07:49; Start 05/31/20 at 04:15; Stop 06/01/20 at 04:14; Status DC Sodium Chloride 1,000 ml @ 75 mls/hr [id number] IV Last administered on 05/31/20at 06:18; Start 05/31/20 at 04:30; Stop 06/01/20 at 04:29; Status DC Pantoprazole Sodium (PROTONIX VIAL for IV PUSH) 80 mg 1X ONCE IVP Last administered on 05/31/20at 06:18; Start 05/31/20 at 04:30; Stop 05/31/20 at 04:31; Status DC Ondansetron HCl (Zofran) 4 mg PRN Q6HRS PRN IV NAUSEA/VOMITING; Start 05/31/20 at 08:30; Stop 06/01/20 at 08:29; Status DC Ringer's Solution 1,000 ml @ 30 mls/hr Q24H IV ; Start 05/31/20 at 08:19; Stop 05/31/20 at 20:18; Status DC Prochlorperazine Edisylate (Compazine) 5 mg PACU PRN PRN IV NAUSEA, MRX1; Start 05/31/20 at 08:30; Stop 05/31/20 at 10:22; Status DC Sevoflurane (Ultane) 15 ml STK-MED ONCE IH ; Start 05/31/20 at 08:48; Stop 05/31/20 at 08:49; Status DC Propofol (Diprivan) 200 mg STK-MED ONCE IV ; Start 05/31/20 at 08:48; Stop 05/31/20 at 08:49; Status DC Lidocaine HCl (Lidocaine Pf 2% Vial) 5 ml STK-MED ONCE .ROUTE ; Start 05/31/20 at 08:48; Stop 05/31/20 at 08:49; Status DC Ketorolac Tromethamine (Toradol 30mg Vial) 30 mg STK-MED ONCE .ROUTE ; Start 05/31/20 at 08:48; Stop 05/31/20 at 08:49; Status DC Ondansetron HCl (Zofran) 4 mg STK-MED ONCE .ROUTE ; Start 05/31/20 at 08:49; Stop 05/31/20 at 08:49; Status DC Dexamethasone Sodium Phosphate (Decadron) 4 mg STK-MED ONCE .ROUTE ; Start 05/31/20 at 08:49; Stop 05/31/20 at 08:49; Status DC Rocuronium Cushing (Zemuron) 50 mg STK-MED ONCE .ROUTE ; Start 05/31/20 at 08:52; Stop 05/31/20 at 08:53; Status DC Ephedrine Sulfate (ePHEDrine PF IN SALINE SYRINGE) 50 mg STK-MED ONCE IV ; Start 05/31/20 at 09:40; Stop 05/31/20 at 09:40; Status DC Prochlorperazine Edisylate (Compazine) 10 mg STK-MED ONCE .ROUTE ; Start 05/31/20 at 10:04; Stop 05/31/20 at 10:05; Status DC Fentanyl Citrate (Fentanyl 2ml Vial) 50 mcg PRN Q10MIN PRN IVP pain Last administered on 05/31/20at 10:30; Start 05/31/20 at 10:15 Pantoprazole Sodium (PROTONIX VIAL for IV PUSH) 40 mg 1X ONCE IVP Last administered on 05/31/20at 10:43; Start 05/31/20 at 10:45; Stop 05/31/20 at 10:46; Status DC Propofol (Diprivan) 200 mg STK-MED ONCE IV ; Start 05/31/20 at 11:36; Stop 05/31/20 at 11:36; Status DC Lidocaine HCl (Lidocaine Pf 2% Vial) 5 ml STK-MED ONCE .ROUTE ; Start 05/31/20 at 11:36; Stop 05/31/20 at 11:36; Status DC Multi-Ingredient Mouthwash/Gargle (Gi Cocktail) 20 ml PRN QID PRN PO CHEST PAIN Last administered on 05/31/20at 14:16; Start 05/31/20 at 12:45 Multi-Ingredient Mouthwash/Gargle (Gi Cocktail) 20 ml PRN QID PRN PO CHEST PAIN; Start 05/31/20 at 14:15; Stop 05/31/20 at 14:11; Status DC Calcium Carbonate/ Glycine (Tums) 500 mg PRN AFTMEALHC PRN PO INDIGESTION; Start 05/31/20 at 14:15 Oxycodone/ Acetaminophen (Percocet 5/325) 1 tab PRN Q4HRS PRN PO PAIN Last administered on 06/01/20at 09:16; Start 05/31/20 at 15:00; Stop 06/01/20 at 13:21; Status DC Pantoprazole Sodium (Protonix) 40 mg DAILYAC PO Last administered on 06/02/20at 08:07; Start 06/02/20 at 07:30 Oxycodone/ Acetaminophen (Percocet 7.5/ 325) 1 tab PRN Q4HRS PRN PO PAIN Last administered on 06/02/20at 08:07; Start 06/01/20 at 13:30 Potassium Chloride (Klor-Con) 10 meq 1X ONCE PO Last administered on 06/01/20at 13:54; Start 06/01/20 at 13:30; Stop 06/01/20 at 13:35; Status DC Diphenhydramine HCl (Benadryl) 25 mg PRN Q6HRS PRN IVP ITCHING Last administered on 06/01/20at 14:20; Start 06/01/20 at 13:45; Stop 06/01/20 at 20:19; Status DC Docusate Sodium (Colace) 100 mg DAILY PO Last administered on 06/02/20at 08:07; Start 06/01/20 at 18:00 Diphenhydramine HCl (Benadryl) 50 mg PRN Q6HRS PRN IVP ITCHING Last administered on 06/02/20at 09:30; Start 06/01/20 at 20:30 Active Scripts Active Protonix (Pantoprazole Sodium) 20 Mg Tablet. 1 Tab PO DAILY Vitals/I & O Vital Sign - Last 24 Hours 06/01/20 06/01/20 06/01/20 06/01/20 13:55 14:44 15:00 19:00 Temp 98.3 98.6 98.3 98.6 Pulse 61 68 Resp 16 18 B/P (MAP) 126/77 (93) 120/80 (93) Pulse Ox 96 96 97 99 O2 Delivery Room Air Room Air Room Air Room Air O2 Flow Rate 8.0 06/01/20 06/01/20 06/01/20 06/01/20 19:40 20:30 21:30 23:00 Temp 98.7 98.7 Pulse 76 Resp 18 B/P (MAP) 128/67 (87) Pulse Ox 98 O2 Delivery Room Air Room Air Room Air Room Air 06/02/20 06/02/20 06/02/20 06/02/20 02:46 03:00 04:02 07:00 Temp 98.5 98.4 98.5 98.4 Pulse 54 49 Resp 18 18 B/P (MAP) 137/90 (106) 133/85 (101) Pulse Ox 98 93 O2 Delivery Room Air Room Air Room Air Room Air 06/02/20 06/02/20 06/02/20 06/02/20 07:51 08:07 09:15 11:00 Temp 98.4 98.4 Pulse 55 Resp 16 B/P (MAP) 128/90 (103) Pulse Ox 98 98 94 O2 Delivery Room Air Room Air Room Air Room Air Intake and Output 06/01/20 06/01/20 06/02/20 14:59 22:59 06:59 Intake Total 430 ml 100 ml Output Total 900 ml 900 ml 700 ml Balance -470 ml -900 ml -600 ml Justicifation of Admission Dx: Justifications for Admission: Justification of Admission Dx: Yes ROSITA FRANCO MD Jun 02, 2020 13:40
[2020-06-02 15:00] VITALS: BP 130/92
--- NOTE | 2020-06-02 15:08 | PATHOLOGY ---
[facility] Accession Number: [id number] . 01 Material submitted: . stomach - ANTRAL GASTRITIS . 01 Clinical history: . ABDOMINAL PAIN LLQ PAIN, FOREIGN BODY . 02 Diagnosis: Gastric biopsy, antrum: - Chronic gastritis, mild. ([facility] 06/02/2020) [facility] 06/02/2020 0915 Local . 02 Comment: Sections of the gastric biopsy reveal gastric antral/body transition mucosa showing congestion and mild chronic inflammation. A properly controlled immunoperoxidase stain for Helicobacter is negative for Helicobacter organisms. ([facility] 06/02/2020) . Special stain performed: Immunoperoxidase for Helicobacter . 02 Electronically signed: . Jesus Holloway MD, Pathologist NPI- [id number] . 01 Gross description: . The specimen is received in formalin, labeled "Naseem Garcia, antral gastritis, R/O H. pylori". Received is a segment of pale mensah soft tissue measuring 0.6 cm in maximum dimensions. The specimen is submitted entirely in cassette A1. ([facility]; 06/01/2020) [facility] 06/01/2020 1747 Local . 02 Pathologist provided ICD-10: K29.50 . 02 CPT . 700753, [id number] Specimen Comment: A courtesy copy of this report has been sent to [phone] Specimen Comment: [id number] Specimen Comment: Report sent to / DR MILNER Performed at: 01 [facility] [address], [place] [id number] MD Papi Feldman MD Phone: [phone] Performed at: 02 [facility] [address] [place], [place] [id number] MD Jesus Holloway MD Phone: [phone]
[2020-06-02] MEDS ORDERED: MORPHINE SULFATE 4 MG/ML VIAL. IV PRN (17:15)
--- NOTE | 2020-06-02 17:48 | RAD ---
EXAM: ABDOMEN 2 VIEWS. HISTORY: Abdominal rigidity. COMPARISON: 05/31/2020. FINDINGS: Supine and upright views of the abdomen are obtained. There is no pneumoperitoneum. There are no distended small bowel loops or significant air fluid levels. There is gas distally. Stool throughout the colon is consistent with constipation. Changes of disc replacement are noted at L4-5. IMPRESSION: 1. No evidence of obstruction. Correlate for mild constipation. Electronically signed by: Destiny Rai MD (06/02/2020 5:46 PM) [id number]
[2020-06-02 19:00] VITALS: BP_SYST 111; BP_SYST 132; BP_DIAS 68; BP_DIAS 85
[2020-06-02 23:00] VITALS: BP 123/79
[2020-06-03 03:00] VITALS: BP 116/73
[2020-06-03 07:00] VITALS: BP 114/75
[2020-06-03] MEDS: PANTOPRAZOLE 40 MG TABLET.DR. PO SCH (08:17)
[2020-06-03] MEDS: oxyCODONE/APAP 7.5/325 1 TAB TABLET PO PRN (08:17)
[2020-06-03] MEDS: DOCUSATE SODIUM 100 MG CAPSULE. PO SCH (08:18)
--- NOTE | 2020-06-03 09:51 | PDOC ---
Date of Service: DATE: 06/03/20 TIME: 09:48 Subjective: Subjective: "It's really painful what I'm going through." Hasn't really been up to walk because abdomen hurts. No issues eating. Varying history re: stooling - says he hasn't, then says he has. Says a colonoscopy was suggested. Urinating "somewhat" better. Objective: Objective: Reviewed meds - getting Percocet. Vital Signs: Vital Signs Date Time Temp Pulse Resp B/P (MAP) Pulse Ox O2 Delivery O2 Flow Rate FiO2 06/03/20 09:30 Room Air 06/03/20 07:00 96.2 50 18 114/75 (88) 96 96.2 Labs: Material submitted: . stomach - ANTRAL GASTRITIS Clinical history: . ABDOMINAL PAIN LLQ PAIN, FOREIGN BODY Diagnosis: Gastric biopsy, antrum: - Chronic gastritis, mild. Comment: Sections of the gastric biopsy reveal gastric antral/body transition mucosa showing congestion and mild chronic inflammation. A properly controlled immunoperoxidase stain for Helicobacter is negative for Helicobacter organisms. Imaging: Abd X-Ray 06/02 IMPRESSION: 1. No evidence of obstruction. Correlate for mild constipation. PE: GEN: NAD LUNGS: CTAB HEART: RRR ABD: soft, periumbilical/upper abd tenderness to light touch - same NEURO/PSYCH: A & O 3 - seems a little angry today A/P: Abdominal pain Normocytic anemia, thrombocytopenia, elevated AST and ALT (improved; Hep panel neg, liver ok on CT) Esophagitis, gastritis, duodenitis on EGD - on PPI, path benign as above Rectal foreign body - removed in OR -- Question of mild constipation on x-ray - add Miralax, Dulcolax PRN. Try dicyclomine for pain. No plans for inpatient colonoscopy - can follow-up in clinic. DC per primary. Justicifation of Admission Dx: Justifications for Admission: Justification of Admission Dx: Yes YAMILKA HILTON Jun 03, 2020 09:51
--- NOTE | 2020-06-03 09:57 | NUR ---
SW following. Discussed with RN, pt discharging today per, Dr. Roblero, x-ray clear. No SW needs.
[2020-06-03] MEDS ORDERED: DICYCLOMINE HCL 10 MG CAPSULE PO PRN (10:00)
[2020-06-03] MEDS ORDERED: BISACODYL 5 MG TABLET.DR. PO PRN (10:00)
[2020-06-03] MEDS ORDERED: POLYETHYLENE GLYCOL 3350 17 GM PACKET. PO SCH (10:00)
[2020-06-03] MEDS: diphenhydrAMINE 50 MG/ML VIAL IVP PRN (10:22)
[2020-06-03 11:00] VITALS: BP 128/82
[2020-06-03] MEDS ORDERED: POLY17PO29 PO (11:57)
--- NOTE | 2020-06-03 13:45 | NUR ---
Pt. discharged to home with Rx, verbalized understanding of discharge instructions. Awaiting cab for ride home.
--- NOTE | 2020-06-03 14:07 | PATHOLOGY ---
[facility] Accession Number: [id number] . 01 Material submitted: . abdomen - FOREIGN BODY, COLONOSCOPY . 01 Clinical history: . LLQ PAIN, FOREIGN BODY . 02 Diagnosis: Foreign bodies, clinically from colonoscopy (Gross only): . (JP:mm; 06/02/2020) [facility] 06/03/2020 1327 Local . 02 Electronically signed: . Jesus Holloway MD, Pathologist NPI- [id number] . 01 Gross description: . The specimen is received fresh, labeled "Naseem Garcia, foreign body". Received is a roll of Tums measuring 5.0 cm in length by 1.7 cm in diameter and a roll of Rolaids measuring 6.8 cm in length by 2.0 cm in diameter. A gross photograph is taken. Sections are not submitted. ([facility]; 06/02/2020) [facility] 06/02/2020 1045 Local . 02 Pathologist provided ICD-10: R10.32 . 02 CPT . 346154 Specimen Comment: A courtesy copy of this report has been sent to [phone] Specimen Comment: [phone] Specimen Comment: Report sent to / DR MILNER Performed at: 01 [facility] [address], [place], [place] [id number] MD Papi Feldman MD Phone: [phone] Performed at: 02 [facility] [address] [place], [place] [id number] MD Jesus Holloway MD Phone: [phone]
--- NOTE | 2020-06-03 15:33 | NUR ---
Cab here to take pt home.
--- NOTE | 2020-06-04 11:22 | PDOC ---
PROGRESS NOTES Date of Service: DATE: 06/03/20 TIME: :19 Chief Complaint Chief Complaint Abdominal pain due to foreign body History of Present Illness History of Present Illness Patient denies much improvement in his abdominal pain. Discussed x-ray results that showed large stool burden. Patient admits that he has not had a bowel movement in some time. Recommended MiraLAX on discharge. Vitals Vitals Vital Signs Date Time Temp Pulse Resp B/P (MAP) Pulse Ox O2 Delivery O2 Flow Rate FiO2 06/03/20 11:00 98.0 56 18 128/82 (97) 97 Room Air 98.0 Physical Exam General: Alert, Cooperative Heart: Regular rate, Normal S1, Normal S2 Abdomen: Soft, No masses, Other (Abdominal tenderness and rigidity) Extremities: No edema Skin: No rashes, Other (Bruising noted to right lower abdomen) Review of Systems Review of Systems Abdominal pain. Constipation. Denies fevers chills nausea vomiting. All other systems negative. Assessment and Plan Assessmemt and Plan Problems Medical Problems: (1) Foreign body in colon, initial encounter Status: Acute (2) Vomiting of blood Status: Acute Plan: Discharge patient with MiraLAX daily for constipation. Comment Review of Relevant I have reviewed the following items ruddy (where applicable) has been applied. Medications Current Medications Al Hydroxide/Mg Hydroxide (Mylanta Plus Xs) 30 ml 1X ONCE PO Last administered on 05/31/20 01:11; Start 05/31/20 at 00:30; Stop 05/31/20 at 00:31; Status DC Sodium Chloride 500 ml @ 500 mls/hr 1X ONCE IV Last administered on 05/31/20 01:11; Start 05/31/20 at 00:30; Stop 05/31/20 at 01:29; Status DC Famotidine (Pepcid) 20 mg 1X ONCE PO Last administered on 05/31/20 01:11; Start 05/31/20 at 00:30; Stop 05/31/20 at 00:31; Status DC Ondansetron HCl (Zofran) 4 mg 1X ONCE IVP Last administered on 05/31/20 01:11; Start 05/31/20 at 00:30; Stop 05/31/20 at 00:31; Status DC Iohexol (Omnipaque 300 Mg/ml) 75 ml 1X ONCE IV Last administered on 05/31/20at 02:45; Start 05/31/20 at 02:30; Stop 05/31/20 at 02:31; Status DC Info (CONTRAST GIVEN -- Rx MONITORING) 1 each PRN DAILY PRN MC SEE COMMENTS; Start 05/31/20 at 02:15; Stop 06/02/20 at 02:14; Status DC Hydromorphone HCl (Dilaudid) 1 mg 1X ONCE IV Last administered on 05/31/20at 04:57; Start 05/31/20 at 04:30; Stop 05/31/20 at 04:31; Status DC Piperacillin Sod/ Tazobactam Sod 4.5 gm/Sodium Chloride 100 ml @ 200 mls/hr 1X ONCE IV Last administered on 05/31/20at 04:56; Start 05/31/20 at 04:30; Stop 05/31/20 at 04:59; Status DC Fentanyl Citrate (Fentanyl 2ml Vial) 50 mcg PRN Q1HR PRN IV SEVERE PAIN 7-10 Last administered on 05/31/20at 07:49; Start 05/31/20 at 04:15; Stop 06/01/20 at 04:14; Status DC Sodium Chloride 1,000 ml @ 75 mls/hr [id number] IV Last administered on 05/31/20at 06:18; Start 05/31/20 at 04:30; Stop 06/01/20 at 04:29; Status DC Pantoprazole Sodium (PROTONIX VIAL for IV PUSH) 80 mg 1X ONCE IVP Last administered on 05/31/20at 06:18; Start 05/31/20 at 04:30; Stop 05/31/20 at 04:31; Status DC Ondansetron HCl (Zofran) 4 mg PRN Q6HRS PRN IV NAUSEA/VOMITING; Start 05/31/20 at 08:30; Stop 06/01/20 at 08:29; Status DC Ringer's Solution 1,000 ml @ 30 mls/hr Q24H IV ; Start 05/31/20 at 08:19; Stop 05/31/20 at 20:18; Status DC Prochlorperazine Edisylate (Compazine) 5 mg PACU PRN PRN IV NAUSEA, MRX1; Start 05/31/20 at 08:30; Stop 05/31/20 at 10:22; Status DC Sevoflurane (Ultane) 15 ml STK-MED ONCE IH ; Start 05/31/20 at 08:48; Stop at 08:49; Status DC Propofol (Diprivan) 200 mg STK-MED ONCE IV ; Start 05/31/20 at 08:48; Stop 05/31/20 at 08:49; Status DC Lidocaine HCl (Lidocaine Pf 2% Vial) 5 ml STK-MED ONCE .ROUTE ; Start 05/31/20 at 08:48; Stop 05/31/20 at 08:49; Status DC Ketorolac Tromethamine (Toradol 30mg Vial) 30 mg STK-MED ONCE .ROUTE ; Start 05/31/20 at 08:48; Stop 05/31/20 at 08:49; Status DC Ondansetron HCl (Zofran) 4 mg STK-MED ONCE .ROUTE ; Start 05/31/20 at 08:49; Stop 05/31/20 at 08:49; Status DC Dexamethasone Sodium Phosphate (Decadron) 4 mg STK-MED ONCE .ROUTE ; Start 05/31/20 at 08:49; Stop 05/31/20 at 08:49; Status DC Rocuronium [place] (Zemuron) 50 mg STK-MED ONCE .ROUTE ; Start 05/31/20 at 08:52; Stop 05/31/20 at 08:53; Status DC Ephedrine Sulfate (ePHEDrine PF IN SALINE SYRINGE) 50 mg STK-MED ONCE IV ; Start 05/31/20 at 09:40; Stop 05/31/20 at 09:40; Status DC Prochlorperazine Edisylate (Compazine) 10 mg STK-MED ONCE .ROUTE ; Start 05/31/20 at 10:04; Stop 05/31/20 at 10:05; Status DC Fentanyl Citrate (Fentanyl 2ml Vial) 50 mcg PRN Q10MIN PRN IVP pain Last administered on 05/31/20at 10:30; Start 05/31/20 at 10:15; Stop 06/03/20 at 16:11; Status DC Pantoprazole Sodium (PROTONIX VIAL for IV PUSH) 40 mg 1X ONCE IVP Last administered on 05/31/20at 10:43; Start 05/31/20 at 10:45; Stop 05/31/20 at 10:46; Status DC Propofol (Diprivan) 200 mg STK-MED ONCE IV ; Start 05/31/20 at 11:36; Stop 05/31/20 at 11:36; Status DC Lidocaine HCl (Lidocaine Pf 2% Vial) 5 ml STK-MED ONCE .ROUTE ; Start 05/31/20 at 11:36; Stop 05/31/20 at 11:36; Status DC Multi-Ingredient Mouthwash/Gargle (Gi Cocktail) 20 ml PRN QID PRN PO CHEST PAIN Last administered on 05/31/20at 14:16; Start 05/31/20 at 12:45; Stop 06/03/20 at 16:11; Status DC Multi-Ingredient Mouthwash/Gargle (Gi Cocktail) 20 ml PRN QID PRN PO CHEST PAIN; Start 05/31/20 at 14:15; Stop 05/31/20 at 14:11; Status DC Calcium Carbonate/ Glycine (Tums) 500 mg PRN AFTMEALHC PRN PO INDIGESTION; Start 05/31/20 at 14:15; Stop 06/03/20 at 16:11; Status DC Oxycodone/ Acetaminophen (Percocet 5/325) 1 tab PRN Q4HRS PRN PO PAIN Last administered on 06/01/20at 09:16; Start 05/31/20 at 15:00; Stop 06/01/20 at 13:21; Status DC Pantoprazole Sodium (Protonix) 40 mg DAILYAC PO Last administered on 06/03/20at 08:17; Start 06/02/20 at 07:30; Stop 06/03/20 at 16:11; Status DC Oxycodone/ Acetaminophen (Percocet 7.5/ 325) 1 tab PRN Q4HRS PRN PO PAIN Last administered on 06/03/20at 08:17; Start 06/01/20 at 13:30; Stop 06/03/20 at 16:11; Status DC Potassium Chloride (Klor-Con) 10 meq 1X ONCE PO Last administered on 06/01/20at 13:54; Start 06/01/20 at 13:30; Stop 06/01/20 at 13:35; Status DC Diphenhydramine HCl (Benadryl) 25 mg PRN Q6HRS PRN IVP ITCHING Last administered on 06/01/20at 14:20; Start 06/01/20 at 13:45; Stop 06/01/20 at 20:19; Status DC Docusate Sodium (Colace) 100 mg DAILY PO Last administered on 06/03/20at 08:18; Start 06/01/20 at 18:00; Stop 06/03/20 at 16:11; Status DC Diphenhydramine HCl (Benadryl) 50 mg PRN Q6HRS PRN IVP ITCHING Last administered on 06/03/20at 10:22; Start 06/01/20 at 20:30; Stop 06/03/20 at 16:11; Status DC Morphine Sulfate (Morphine Sulfate) 4 mg PRN Q4HRS PRN IV PAIN; Start 06/02/20 at 17:15; Stop 06/03/20 at 16:11; Status DC Polyethylene Glycol (miraLAX PACKET) 17 gm BID PO Last administered on 06/03at 10:17; Start 06/03/20 at 10:00; Stop 06/03/20 at 16:11; Status DC Dicyclomine HCl (Bentyl) 10 mg PRN QID PRN PO ABDOMINAL PAIN; Start 06/03/20 at 10:00; Stop 06/03/20 at 16:11; Status DC Bisacodyl (Dulcolax Tab) 5 mg PRN DAILY PRN PO CONSTIPATION; Start 06/03/20 at 10:00; Stop 06/03/20 at 16:11; Status DC Active Scripts Active Miralax (Polyethylene Glycol 3350) 17 Gm Powd.pack 1 Packet PO DAILY dissolve in water Protonix (Pantoprazole Sodium) 20 Mg Tablet.dr 1 Tab PO DAILY Justicifation of Admission Dx: Justifications for Admission: Justification of Admission Dx: Yes ROSITA FRANCO MD Jun 04, 2020 11:22
--- NOTE | 2020-06-04 11:29 | PDOC3 ---
Discharge Summary Visit Information Date of Admission: May 31, 2020 Date of Discharge: May 31, 2020 Final Diagnosis Problems Medical Problems: (1) Foreign body in colon, initial encounter Status: Acute (2) Vomiting of blood Status: Acute Brief Hospital Course Allergies Allergies Coded Allergies Type Severity Reaction Last Updated Verified ketorolac Allergy Severe hives 05/31/20 Yes morphine Allergy Severe hives 05/31/20 Yes prochlorperazine Allergy Intermediate restlessness 05/31/20 Yes Vital Signs Vital Signs Date Time Temp Pulse Resp B/P (MAP) Pulse Ox O2 Delivery O2 Flow Rate FiO2 06/03/20 11:00 98.0 56 18 128/82 (97) 97 Room Air 98.0 Brief Hospital Course Mr. Garcia is a 39 old M who presented with worsening abd pain, pain and pressure, and taken to the OR this AM for a foreign body in his rectum. 2 foreign bodies removed from patient's rectum, and sent to pathology. They were identified as Tums tablets. Patient had an EGD that showed mild gastritis, mild esophagitis, and mild duodenitis. Patient's discharge was held up by pain man agement and concerns of ongoing symptoms. Repeat abdominal x-ray showed no free air in the abdomen, but did show a large stool burden. He was discharged home with MiraLAX. Discharge Information Condition at Discharge: Stable Disposition/Orders: D/C to Home Scheduled Pantoprazole Sodium (Protonix) 20 Mg Tablet.dr, 1 TAB PO DAILY for GERD, #30 Prescribed by: MADISON LEIVA on 05/31/20 1358 Polyethylene Glycol 3350 (Miralax) 17 Gm Powd.pack, 1 PACKET PO DAILY for constipation, #30 Ref 0 dissolve in water Prescribed by: ROSITA FRANCO MD on 06/03/20 1157 Justicifation of Admission Dx: Justifications for Admission: Justification of Admission Dx: Yes ROSITA FRANCO MD Jun 04, 2020 11:29
== END 2020-06-03 15:30 | disposition home or self-care (01) | DRG 393 ==
LOC: ER 23:06 → 4 NORTH 05-31 04:47
PROVIDERS: ADMIT Family Medicine; ATTEND Family Medicine
PROC: 0DJ08ZZ Inspection of Upper Intestinal Tract, Via Natural or Artificial Opening Endoscopic (ICD-10-PCS; 2020-05-31)
PROC: 0DCP8ZZ Extirpation of Matter from Rectum, Via Natural or Artificial Opening Endoscopic (ICD-10-PCS; principal; 2020-05-31 08:17)
DX: T18.5XXA Foreign body in anus and rectum, initial encounter (principal); K29.71 Gastritis, unspecified, with bleeding; K29.81 Duodenitis with bleeding; D64.9 Anemia, unspecified; D69.6 Thrombocytopenia, unspecified; F17.210 Nicotine dependence, cigarettes, uncomplicated; K21.0 Gastro-esophageal reflux disease with esophagitis; Z20.828 Contact with and (suspected) exposure to other viral communicable diseases; Z88.5 Allergy status to narcotic agent; Z88.8 Allergy status to other drugs, medicaments and biological substances; X58.XXXA Exposure to other specified factors, initial encounter; Y93.89 Activity, other specified; Y92.89 Other specified places as the place of occurrence of the external cause; Y99.8 Other external cause status
CPT/HCPCS: 36415; 43239; 71045; 74021; 74177; 80053; 80307; 81001; 83690; 85025; 85610; 85730; 86705; 86709; 86803; 86850; 86900; 86901; 87340; 87426; 88300; 88305; 88342; 93005; 96361; 96374; A7015; C9113; J1100; J1170; J1200; J1885; J2405; J2543; J2704; J3010; J7030; J7040; Q9967; 99285-25; G0378; U0003-CS

== ENCOUNTER 2020-06-08 20:07 | Inpatient (IN) | payer MEDICAID ==
[~2020-06-08] VITALS: Ht 188 cm; Wt 90.7 kg
[~2020-06-08 20:07] MED LIST: PANT20TA2 PO; POLY17PO29 PO
[2020-06-08] MEDS ORDERED: IV NORMAL SALINE 1000ML BAG 1,000 ML IV ONE (21:00)
[2020-06-08] MEDS ORDERED: PANTOPRAZOLE IV PUSH 40 MG VIAL. IVP ONE (21:00)
[2020-06-08 21:03] LABS: BASO % 1 % (0-3); EOS % 1 % (0-3); HEMATOCRIT 35.7 % (39.0-53.0); HEMOGLOBIN 12.2 g/dL (13.0-17.5); LYMPH # 1.1 x10^3/uL (1.0-4.8); LYMPH % 34 % (24-48); MEAN CORPUSCULAR HEMOGLOBIN 33 pg (25-35); MEAN CORPUSCULAR HGB CONC 34 g/dL (31-37); MEAN CORPUSCULAR VOLUME 95 fL (79-100); MONO # 0.4 x10^3/uL (0.0-1.1); MONO % 13 % (0-9); NEUT # 1.7 x10^3/uL (1.8-7.7); NEUT % 51 % (31-73); PLATELET COUNT 137 x10^3/uL (140-400); RED BLOOD COUNT 3.75 x10^6/uL (4.30-5.70); RED CELL DISTRIBUTION WIDTH 14.4 % (11.5-14.5); WHITE BLOOD COUNT 3.3 x10^3/uL (4.0-11.0)
[2020-06-08 21:10] LABS: CALCIUM 8.3 mg/dL (8.5-10.1); CREATININE 1.4 mg/dL (0.7-1.3); GFR 56.7; POTASSIUM 3.9 mmol/L (3.5-5.1)
[2020-06-08 21:17] LABS: ALBUMIN 3.6 g/dL (3.4-5.0); ALBUMIN/GLOBULIN RATIO 1.2 (1.0-1.7); TOTAL BILIRUBIN 0.4 mg/dL (0.2-1.0); TOTAL PROTEIN 6.7 g/dL (6.4-8.2)
[2020-06-08] MEDS ORDERED: IOHEXOL 300 MG/ML 100ML VIAL. IV ONE (21:45)
[2020-06-08] MEDS ORDERED: CONTRAST GIVEN. MC PRN (21:45)
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
[2020-06-08 22:53] LABS: BILIRUBIN,URINE NEGATIVE (NEG); CLARITY,URINE CLEAR; COLOR,URINE YELLOW; NITRITE,URINE NEGATIVE (NEG); PROTEIN,URINE NEGATIVE (NEG-TRACE); UROBILINOGEN,URINE 0.2 mg/dL (0.2 mg/dL)
--- NOTE | 2020-06-08 22:56 | RAD ---
CT ABD PELV W/ IV CONTRST ONLY History: Reason: abdominal pain, concern of rectal FB / Spl. Instructions: OMNI 300 INJ 60 / History: Technique: After the administration of intravenous contrast, CT imaging was performed of the abdomen and pelvis. Multiplanar images are reviewed. Exposure: One or more of the following individualized dose reduction techniques were utilized for this examination: 1. Automated exposure control 2. Adjustment of the mA and/or kV according to patient size 3. Use of iterative reconstruction technique. Comparison: May 31, 2020 Findings: Lower chest: No consolidation or pleural effusion. Abdomen and pelvis: The liver, spleen, adrenal glands, pancreas and gallbladder are unremarkable. Normal appearance the kidneys. No hydronephrosis. 2 linear foreign body densities within the distal rectum. Prior appendectomy. No evidence of bowel obstruction. Bilaterally gluteal subcutaneous nodules, unchanged. No pathologic lymphadenopathy. No ascites. Bones: Postoperative changes L4-L5 disc replacement. Impression: 1. Two linear high density foreign bodies within the distal rectum. Electronically signed by: Johnson Humphries DO (06/08/2020 10:54 PM) [facility]
[2020-06-08 22:59] LABS: BARBITURATES NEG (NEG); BENZODIAZEPINES NEG (NEG); CANNABINOIDS NEG (NEG); COCAINE NEG (NEG); METHADONE NEG (NEG); OPIATES POS (NEG); PHENCYCLIDINE NEG (NEG)
[2020-06-08 23:00] LABS: AMPHETAMINE/METHAMPHETAMINE NEG (NEG)
[2020-06-08 23:01] LABS: BACTERIA,URINE 0 /HPF (0-FEW); HYALINE CASTS, URINE FEW /HPF; RBC,URINE OCC /HPF (0-2); SQUAMOUS EPITHELIAL CELL,UR OCC /LPF; WBC,URINE OCC /HPF (0-4)
[2020-06-08] MEDS ORDERED: fentaNYL PF VIAL 100 MCG/2 ML VIAL IV ONE (23:15)
[2020-06-09] MEDS: fentaNYL PF VIAL 100 MCG/2 ML VIAL IVP PRN ×6 (01:32→21:49)
[2020-06-09 07:25] VITALS: BP 129/81
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
[2020-06-09] MEDS ORDERED: MAGNESIUM CITRATE 296 ML SOLUTION. PO ONE (09:15)
--- NOTE | 2020-06-09 09:21 | PDOC2 ---
[facility] [employer] [facility] 06/09/20 0921: CONSULT Date of Consult Date of Consult DATE: 06/09/20 TIME: 09:16 Reason for Consult Reason for Consult: Rectal FB Referring Physician Referring Physician: ER Identification/Chief Complaint Chief Complaint hematemesis, rectal FB Source Source: Chart review, Patient History of Present Illness Reason for Visit: Patient is evasive with hx--seen recent admission with abd pain, hematemesis, rectal FB--returns with same Dr Crow did Exam under anesthesia rigid proctoscopy with flexible sigmoidoscopy-removed 2 FB(tums and rolaids) Dr Petersen did EGD--no active issues seen then for hematemesis Past Medical History Cardiovascular: No pertinent hx Pulmonary: No pertinent hx GI: No pertinent hx Heme/Onc: No pertinent hx Hepatobiliary: No pertinent hx Psych: No pertinent hx Rheumatologic: No pertinent hx Infectious disease: No pertinent hx Renal/: No pertinent hx Endocrine: No pertinent hx Past Surgical History Past Surgical History: No pertinent history Family History Family History: No Significant Social History ALCOHOL: other (+urine) Lives: with Family Current Problem List Problem List Problems Medical Problems: (1) Foreign body in colon, initial encounter Status: Acute (2) Hematemesis Status: Acute Current Medications Current Medications Current Medications Sodium Chloride 1,000 ml @ 1,000 mls/hr 1X ONCE IV Last administered on 06/08/20at 21:35; Start 06/08/20 at 21:00; Stop 06/08/20 at 21:59; Status DC Pantoprazole Sodium (PROTONIX VIAL for IV PUSH) 40 mg 1X ONCE IVP Last administered on 06/08/20at 21:35; Start 06/08/20 at 21:00; Stop 06/08/20 at 21:01; Status DC Iohexol (Omnipaque 300 Mg/ml) 60 ml 1X ONCE IV Last administered on 06/08/20at 22:30; Start 06/08/20 at 21:45; Stop 06/08/20 at 21:46; Status DC Info (CONTRAST GIVEN -- Rx MONITORING) 1 each PRN DAILY PRN MC SEE COMMENTS; Start 06/08/20 at 21:45; Stop 06/10/20 at 21:44 Fentanyl Citrate (Fentanyl 2ml Vial) 50 mcg 1X ONCE IV Last administered on 06/08/20at 23:16; Start 06/08/20 at 23:15; Stop 06/08/20 at 23:16; Status DC Fentanyl Citrate (Fentanyl 2ml Vial) 50 mcg PRN Q4HRS PRN IVP SEVERE PAIN 7-10 Last administered on 06/09/20at 05:26; Start 06/09/20 at 01:30 Pantoprazole Sodium (PROTONIX VIAL for IV PUSH) 40 mg DAILYAC IVP ; Start 06/10/20 at 07:30 Active Scripts Active Miralax (Polyethylene Glycol 3350) 17 Gm Powd.pack 1 Packet PO DAILY dissolve in water Protonix (Pantoprazole Sodium) 20 Mg Tablet. 1 Tab PO DAILY Allergies Allergies: Coded Allergies: ketorolac (Verified Allergy, Severe, hives, 05/31/20) morphine (Verified Allergy, Severe, hives, 05/31/20) prochlorperazine (Verified Allergy, Intermediate, restlessness, 05/31/20) haloperidol (Verified Allergy, Unknown, 06/08/20) ROS General: No: Chills, Other (fevers ) PSYCHOLOGICAL ROS: YES: Anxiety; No: Depression Eyes: No Blurry vision, No Double vision HEENT: No: Heacaches, Sore Throat Hematological and Lymphatic: No: Bleeding Problems, Blood Clots Respiratory: No: Cough, Shortness of breath Cardiovascular: No Chest Pain, No Palpitations Gastrointestinal: Yes Other (see hpi) Genitourinary: No Dysuria, No Retention Musculoskeletal: No Joint Pain, No Muscle Pain Neurological: No Impaired Coord/balance, No Numbness/Tingling Skin: No Pruritus, No Rash Physical Exam General: Alert, Oriented X3, Cooperative HEENT: Atraumatic, PERRLA Lungs: Clear to auscultation, Normal air movement Heart: Regular rate, Normal S1, Normal S2 Abdomen: Soft, Other (diffusely tender, no guarding, ND --abdomen with cuts/scars, bruises ) Extremities: No clubbing, No cyanosis Skin: No rashes, No breakdown Neuro: Normal speech, Sensation intact MUSCULOSKELETAL: No deformity, No swelling Vitals VITALS Vital Signs Date Time Temp Pulse Resp B/P (MAP) Pulse Ox O2 Delivery O2 Flow Rate FiO2 06/09/20 07:48 Room Air 06/09/20 07:25 98.6 71 18 129/81 (97) 98 98.6 Labs Labs Laboratory Tests Test 06/08/20 20:54 06/08/20 22:46 06/09/20 06:07 White Blood Count 3.3 x10^3/uL (4.0-11.0) Red Blood Count 3.75 x10^6/uL (4.30-5.70) Hemoglobin 12.2 g/dL (13.0-17.5) Hematocrit 35.7 % (39.0-53.0) Mean Corpuscular Volume 95 fL (79-100) Mean Corpuscular Hemoglobin 33 pg (25-35) Mean Corpuscular Hemoglobin Concent 34 g/dL (31-37) Red Cell Distribution Width 14.4 % (11.5-14.5) Platelet Count 137 x10^3/uL (140-400) Neutrophils (%) (Auto) 51 % (31-73) Lymphocytes (%) (Auto) 34 % (24-48) Monocytes (%) (Auto) 13 % (0-9) Eosinophils (%) (Auto) 1 % (0-3) Basophils (%) (Auto) 1 % (0-3) Neutrophils # (Auto) 1.7 x10^3/uL (1.8-7.7) Lymphocytes # (Auto) 1.1 x10^3/uL (1.0-4.8) Monocytes # (Auto) 0.4 x10^3/uL (0.0-1.1) Eosinophils # (Auto) 0.0 x10^3/uL (0.0-0.7) Basophils # (Auto) 0.0 x10^3/uL (0.0-0.2) Sodium Level 145 mmol/L (136-145) Potassium Level 3.9 mmol/L (3.5-5.1) Chloride Level 108 mmol/L (98-107) Carbon Dioxide Level 24 mmol/L (21-32) Anion Gap 13 (6-14) Blood Urea Nitrogen 19 mg/dL (8-26) Creatinine 1.4 mg/dL (0.7-1.3) Estimated GFR (Cockcroft-Gault) 56.7 BUN/Creatinine Ratio 14 (6-20) Glucose Level 86 mg/dL (70-99) Calcium Level 8.3 mg/dL (8.5-10.1) Magnesium Level 2.0 mg/dL (1.8-2.4) Total Bilirubin 0.4 mg/dL (0.2-1.0) Aspartate Amino Transf (AST/SGOT) 26 U/L (15-37) Alanine Aminotransferase (ALT/SGPT) 71 U/L (16-63) Alkaline Phosphatase 41 U/L (46-116) Total Protein 6.7 g/dL (6.4-8.2) Albumin 3.6 g/dL (3.4-5.0) Albumin/Globulin Ratio 1.2 (1.0-1.7) Lipase 46 U/L (73-393) Urine Collection Type Unknown Urine Color Yellow Urine Clarity Clear Urine pH 6.0 (<5.0-8.0) Urine Specific [place] 1.015 (1.000-1.030) Urine Protein Negative mg/dL (NEG-TRACE) Urine Glucose (UA) Negative mg/dL (NEG) Urine Ketones (Stick) Negative mg/dL (NEG) Urine Blood Negative (NEG) Urine Nitrite Negative (NEG) Urine Bilirubin Negative (NEG) Urine Urobilinogen Dipstick 0.2 mg/dL (0.2 mg/dL) Urine Leukocyte Esterase Negative (NEG) Urine RBC Occ /HPF (0-2) Urine WBC Occ /HPF (0-4) Urine Squamous Epithelial Cells Occ /LPF Urine Bacteria 0 /HPF (0-FEW) Urine Hyaline Casts Few /HPF Urine Mucus Marked /LPF Urine Opiates Screen Pos (NEG) Urine Methadone Screen Neg (NEG) Urine Barbiturates Neg (NEG) Urine Phencyclidine Screen Neg (NEG) Urine Amphetamine/Methamphetamine Neg (NEG) Urine Benzodiazepines Screen Neg (NEG) Urine Cocaine Screen Neg (NEG) Urine Cannabinoids Screen Neg (NEG) Urine Ethyl Alcohol Pos (NEG) SARS-CoV-2 Antigen (Rapid) Negative (NEGATIVE) Laboratory Tests Test 06/08/20 20:54 06/08/20 22:46 06/09/20 06:07 White Blood Count 3.3 x10^3/uL (4.0-11.0) Red Blood Count 3.75 x10^6/uL (4.30-5.70) Hemoglobin 12.2 g/dL (13.0-17.5) Hematocrit 35.7 % (39.0-53.0) Mean Corpuscular Volume 95 fL (79-100) Mean Corpuscular Hemoglobin 33 pg (25-35) Mean Corpuscular Hemoglobin Concent 34 g/dL (31-37) Red Cell Distribution Width 14.4 % (11.5-14.5) Platelet Count 137 x10^3/uL (140-400) Neutrophils (%) (Auto) 51 % (31-73) Lymphocytes (%) (Auto) 34 % (24-48) Monocytes (%) (Auto) 13 % (0-9) Eosinophils (%) (Auto) 1 % (0-3) Basophils (%) (Auto) 1 % (0-3) Neutrophils # (Auto) 1.7 x10^3/uL (1.8-7.7) Lymphocytes # (Auto) 1.1 x10^3/uL (1.0-4.8) Monocytes # (Auto) 0.4 x10^3/uL (0.0-1.1) Eosinophils # (Auto) 0.0 x10^3/uL (0.0-0.7) Basophils # (Auto) 0.0 x10^3/uL (0.0-0.2) Sodium Level 145 mmol/L (136-145) Potassium Level 3.9 mmol/L (3.5-5.1) Chloride Level 108 mmol/L (98-107) Carbon Dioxide Level 24 mmol/L (21-32) Anion Gap 13 (6-14) Blood Urea Nitrogen 19 mg/dL (8-26) Creatinine 1.4 mg/dL (0.7-1.3) Estimated GFR (Cockcroft-Gault) 56.7 BUN/Creatinine Ratio 14 (6-20) Glucose Level 86 mg/dL (70-99) Calcium Level 8.3 mg/dL (8.5-10.1) Magnesium Level 2.0 mg/dL (1.8-2.4) Total Bilirubin 0.4 mg/dL (0.2-1.0) Aspartate Amino Transf (AST/SGOT) 26 U/L (15-37) Alanine Aminotransferase (ALT/SGPT) 71 U/L (16-63) Alkaline Phosphatase 41 U/L (46-116) Total Protein 6.7 g/dL (6.4-8.2) Albumin 3.6 g/dL (3.4-5.0) Albumin/Globulin Ratio 1.2 (1.0-1.7) Lipase 46 U/L (73-393) Urine Collection Type Unknown Urine Color Yellow Urine Clarity Clear Urine pH 6.0 (<5.0-8.0) Urine Specific [place] 1.015 (1.000-1.030) Urine Protein Negative mg/dL (NEG-TRACE) Urine Glucose (UA) Negative mg/dL (NEG) Urine Ketones (Stick) Negative mg/dL (NEG) Urine Blood Negative (NEG) Urine Nitrite Negative (NEG) Urine Bilirubin Negative (NEG) Urine Urobilinogen Dipstick 0.2 mg/dL (0.2 mg/dL) Urine Leukocyte Esterase Negative (NEG) Urine RBC Occ /HPF (0-2) Urine WBC Occ /HPF (0-4) Urine Squamous Epithelial Cells Occ /LPF Urine Bacteria 0 /HPF (0-FEW) Urine Hyaline Casts Few /HPF Urine Mucus Marked /LPF Urine Opiates Screen Pos (NEG) Urine Methadone Screen Neg (NEG) Urine Barbiturates Neg (NEG) Urine Phencyclidine Screen Neg (NEG) Urine Amphetamine/Methamphetamine Neg (NEG) Urine Benzodiazepines Screen Neg (NEG) Urine Cocaine Screen Neg (NEG) Urine Cannabinoids Screen Neg (NEG) Urine Ethyl Alcohol Pos (NEG) SARS-CoV-2 Antigen (Rapid) Negative (NEGATIVE) Assessment/Plan Assessment/Plan rectal FB--CT shows in distal rectum--d/w GI, no plans--will give mag citrate DENNIS CROW MD 06/09/20 1252: CONSULT Assessment/Plan Assessment/Plan Agree with [facility] assessment plan NOEL FINNEGAN APRN Jun 09, 2020 09:21 DENNIS CROW MD Jun 09, 2020 12:52
[2020-06-09 11:20] VITALS: BP 135/76
[2020-06-09 15:06] VITALS: BP 127/71
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
[2020-06-09] MEDS: SUCRALFATE 1 GM TABLET. PO SCH (17:42)
--- NOTE | 2020-06-09 17:49 | NUR ---
Naseem has had a fair day. he continues to be painful and has been medicated with fentanyl every 4 hr per request. he has had scant results from the mag citrate --"just small amount of brown liquid" instructed to call next time and not to flush toilet.
[2020-06-09 18:46] VITALS: BP 132/82
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
[2020-06-09 23:28] VITALS: BP 134/94
[2020-06-10] MEDS: fentaNYL PF VIAL 100 MCG/2 ML VIAL IVP PRN ×6 (01:52→22:14)
[2020-06-10 02:11] VITALS: BP 135/89
[2020-06-10] MEDS: PANTOPRAZOLE 40 MG TABLET.DR. PO SCH ×2 (06:05→08:06)
[2020-06-10 06:26] VITALS: BP 131/86
[2020-06-10] MEDS ORDERED: PANTOPRAZOLE IV PUSH 40 MG VIAL. IVP SCH (07:30)
[2020-06-10] MEDS: SUCRALFATE 1 GM TABLET. PO SCH ×2 (08:05→16:45)
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
--- NOTE | 2020-06-10 09:30 | PDOC ---
Date of Service: DATE: 06/10/20 TIME: 09: Subjective: Subjective: Abd pain, says he might have surgery. Some liquid stool after Mag Citrate - says did not pass foreign body. Tolerating clears. Tells me he lives with a friend. Objective: Objective: Nurse says c/o abd pain. Drank Mag Citrate. Vital Signs: Vital Signs Date Time Temp Pulse Resp B/P (MAP) Pulse Ox O2 Delivery O2 Flow Rate FiO2 06/10/20 08:00 Room Air 06/10/20 06:35 98 06/10/20 06:26 98.0 61 20 131/86 (101) 98.0 PE: GEN: NAD LUNGS: CTAB HEART: RRR ABD: NABS, S/ND/NT NEURO/PSYCH: A & O 3 A/P: ?abd pain, foreign body in rectum - recurrent admissions Psych issues -- No plans to repeat GI workup done recently. Okay to advance diet, continue laxatives, ?DC soon per GI - staff and pt indicate possibly something planned w/ surgery. Justicifation of Admission Dx: Justifications for Admission: Justification of Admission Dx: Yes YAMILKA HILTON Jun 10, 2020 09:30
--- NOTE | 2020-06-10 11:05 | NUR ---
JOSAFAT STATES THAT HIS PAIN IS STILL 9/10 . he had a small bm last night about 11pm. bowel sounds continue to hypoactive. He had a moderate size form brown BM at 0930 this am. no foreign object noted. am care completed.
[2020-06-10 11:10] VITALS: BP 131/85
[2020-06-10 15:10] VITALS: BP 127/81
[2020-06-10 18:35] VITALS: BP 127/81
[2020-06-10 22:44] VITALS: BP 157/97
[2020-06-11] MEDS: fentaNYL PF VIAL 100 MCG/2 ML VIAL IVP PRN ×6 (02:19→22:34)
[2020-06-11 02:30] VITALS: BP 131/87
[2020-06-11 06:21] VITALS: BP 136/89
[2020-06-11] MEDS ORDERED: PANTOPRAZOLE 40 MG TABLET.DR. PO ONE (07:00)
[2020-06-11] MEDS: SUCRALFATE 1 GM TABLET. PO SCH ×2 (07:35→17:40)
[2020-06-11 11:04] VITALS: BP 129/78
[2020-06-11 15:25] VITALS: BP 124/74
--- NOTE | 2020-06-11 15:36 | PDOC ---
F/U PHYSCH PROG NOTE Subjective: Gentleman is seen for routine follow-up. Progress is reviewed with nursing staff. He reportedly said that foreign body could be a perfume bottle in his rectum. He is on clear liquid diet. When discussed, he continues to be evasive, guarded, and answering and monosyllabic sentences. Not very interactive and superficial in presentation. Denies suicidal or homicidal thoughts. Denies auditory or visual hallucinations. No evidence of kallie or hypomania. Objective: Vital Signs: Vital Signs Date Time Temp Pulse Resp B/P (MAP) Pulse Ox O2 Delivery O2 Flow Rate FiO2 06/11/20 14:24 Room Air 06/11/20 11:04 98.5 50 16 129/78 (95) 98.5 06/11/20 06:24 97 Medications: Current Medications Medications (Trade) Dose Ordered Sig/Tess Start Time Stop Time Status Last Admin Dose Admin Fentanyl Citrate (Fentanyl 2ml Vial) 50 mcg PRN Q4HRS PRN 06/09/20 01:30 06/11/20 14:24 50 MCG Info (CONTRAST GIVEN -- Rx MONITORING) 1 each PRN DAILY PRN 06/08/20 21:45 06/10/20 21:44 DC Iohexol (Omnipaque 300 Mg/ml) 60 ml 1X ONCE 06/08/20 21:45 06/08/20 21:46 DC 06/08/20 22:30 60 ML Magnesium Citrate (Citroma) 296 ml 1X ONCE 06/09/20 09:15 06/09/20 09:18 DC 06/09/20 09:42 296 ML Pantoprazole Sodium (PROTONIX VIAL for IV PUSH) 40 mg DAILYAC 06/10/20 07:30 06/09/20 14:12 DC 06/09/20 09:42 40 MG Pantoprazole Sodium (Protonix) 40 mg 1X ONCE 06/11/20 07:00 06/11/20 07:01 DC 06/11/20 07:01 40 MG Sodium Chloride 1,000 ml @ 1,000 mls/hr 1X ONCE 06/08/20 21:00 06/08/20 21:59 DC 06/08/20 21:35 1,000 MLS/HR Sucralfate (Carafate) 1 gm BIDWMEALS 06/09/20 17:00 8/27/20 07:35 1 GM Physical Exam: Mental Status Exam: Young gentleman appears as a stated age Cooperative but evasive Alert and oriented Thought processes concrete Denies suicidal or homicidal thoughts. Denies auditory or visual hallucinations No abnormal perception noted Mood is dysthymic Affect is constricted Impulse control is limited Insight is limited Judgment is limited Attention span and concentration fair Recent and remote memory intact Physical Exam: Refer to Physician's note. METAL TESTER: No focal deficit MSK: No EPS, TDK, or abnormal involuntary movements Diagnosis: Unspecified mood disorder Unspecified factitious disorder Unspecified anxiety disorder Assessment: Gentleman with diffuse abdominal pain and history of foreign body in rectum has strange history and presentation. Given his evasive behavior, limited interaction devoid of details, and circumstances raise many questions including malingering, and unspecified mood disorder or factitious disorder. However, he needs a thorough evaluation to rule out any organic pathology. At this point no treatment is recommended. Collateral information from family and girlfriend would be of great help to determine or narrow down the diagnosis. He continues to be evasive and guarded with monosyllabic answers. Plan: No medication is recommended. Additionally, patient thinks that he is not in need of any medication. Continue to monitor for symptoms. Requesting social psychologist open hearth furnace laborer to obtain collateral information. Psychoeducation provided. Supportive psychotherapy provided Thank you for involving good patient care. JOHNY VALENTIN MD Jun 11, 2020 15:36
[2020-06-11 19:16] VITALS: BP 139/85
--- NOTE | 2020-06-11 19:29 | RAD ---
CT Abdomen and Pelvis without contrast History: Foreign body Technique: Noncontrast CT imaging was performed of the abdomen and pelvis. Multiplanar images are reviewed. Exposure: One or more of the following individualized dose reduction techniques were utilized for this examination: 1. Automated exposure control 2. Adjustment of the mA and/or kV according to patient size 3. Use of iterative reconstruction technique. Comparison: June 08, 2020 Findings: There are again 2 foreign bodies in the rectum, somewhat more proximally located than previously. One of these measures about 5.2 cm x 1.8 cm x 1.5 cm. More distal focus measures about 6.7 cm x 1.8 cm x 1.9 cm. No abscess or free air is identified. Bowel is not significantly dilated. Urinary bladder is somewhat distended. There again has been appendectomy. No new abnormality is identified of the liver, spleen, or pancreas allowing for noncontrast technique. There is no hydronephrosis or urolithiasis. Gallbladder is present without obvious intraluminal abnormality by CT. There is no abnormality of the limited visualized lung bases. There is L4-5 artificial disc. Impression: 1. There is again 2 foreign bodies in the rectum. Electronically signed by: Ren Pizano MD (06/11/2020 7:26 PM) [facility]
--- NOTE | 2020-06-11 21:32 | PDOC ---
[employer] PROGRESS NOTE Date of Service DOS: DATE: 06/11/20 TIME: 21:31 Chief Complaint Chief Complaint Foreign body in rectum We will repeat CT abdomen pelvis Pending further surgery evaluation if foreign bodies retained for possible proctoscopy or EUA History of Present Illness History of Present Illness 06/10/20 Pt seen and examined. Pt resting in bed, complains of minor pain and requests more pain meds. Pt believes FB may be a perfume bottle. Pt has not yet responded to laxative therapy, awaiting BM before surgery c onsult. Vitals/I&O Vitals/I&O: Vital Signs Date Time Temp Pulse Resp B/P (MAP) Pulse Ox O2 Delivery O2 Flow Rate FiO2 06/11/20 19:50 Room Air 06/11/20 19:16 98.1 54 18 139/85 (103) 98 98.1 I & O 06/10/20 06/10/20 06/11/20 15:00 23:00 07:00 Intake Total 780 ml 420 ml 960 ml Output Total 1 ml 925 ml Balance 779 ml -505 ml 960 ml Physical Exam Physical Exam: GEN: No apparent distress. Alert and oriented HEENT: Normal cephalic, atraumatic, external auditory canals are patent NECK: Supple, no JVD, no thyromegaly was noted LUNGS: Bilateral crackles HEART: RRR, S1, S2 present. Peripheral pulses intact, no obvious murmurs n oted ABDOMEN: Soft, nontender. Positive bowel sounds, no organomegaly, normal bowel sounds EXTREMITIES: Without clubbing, cyanosis, or edema. Pedal pulses intact. Negative Homans sign General: Alert, Oriented X3, Cooperative Heart: Regular rate, Normal S1, Normal S2 Lungs: Clear Abdomen: Soft, Other (diffusely tender, no guarding, ND --abdomen with cuts/scars, bruises ) Extremities: No clubbing, No cyanosis Skin: No rashes, No breakdown Assessment and Plan Assessmemt and Plan Problems Medical Problems: (1) Foreign body in colon, initial encounter Status: Acute (2) Hematemesis Status: Acute Comment Review of Relevant I have reviewed the following items ruddy (where applicable) has been applied. Medications: Current Medications Medications (Trade) Dose Ordered Sig/Tess Route PRN Reason Start Time Stop Time Status Last Admin Dose Admin Pantoprazole Sodium (Protonix) 40 mg 1X ONCE PO 06/11/20 07:00 06/11/20 07:01 DC 06/11/20 07:01 Justifications for Admission Other Justification BASILIO TAN MD Jun 11, 2020 21:32
[2020-06-11 22:36] VITALS: BP 151/96
[2020-06-12 02:46] VITALS: BP 131/84
[2020-06-12] MEDS: fentaNYL PF VIAL 100 MCG/2 ML VIAL IVP PRN ×5 (02:50→20:14)
--- NOTE | 2020-06-12 03:31 | NUR ---
Naseem has been requesting and receiving pain medication about every 4 hours per order for C/O pain 06/25 to abdomen. Patient has voided in urinal. Patient has denied BM this shift. Will monitor.
[2020-06-12 06:08] VITALS: BP 126/88
[2020-06-12] MEDS: PANTOPRAZOLE 40 MG TABLET.DR. PO SCH (06:12)
[2020-06-12] MEDS: SUCRALFATE 1 GM TABLET. PO SCH ×2 (07:20→16:34)
--- NOTE | 2020-06-12 09:48 | PDOC ---
PROGRESS NOTES Date of Service: DATE: 06/12/20 TIME: 09:47 Chief Complaint Chief Complaint Foreign body in rectum We will repeat CT abdomen pelvis Pending further surgery evaluation if foreign bodies retained for possible proctoscopy or EUA 06/11 ct foreign bodies in the rectum, somewhat more proximally located than previously. One of these measures about 5.2 cm x 1.8 cm x 1.5 cm. More distal focus measures about 6.7 cm x 1.8 cm x 1.9 cm. No abscess or free air is identified. plan re-consult gen surgery 38 min pt exam, chart review, > 50% of time spent with exam, chart review, pt care coordination History of Present Illness History of Present Illness 06/10/20 Pt seen and examined. Pt resting in bed, complains of minor pain and requests more pain meds. Pt believes FB may be a perfume bottle. Pt has not yet responded to laxative therapy, awaiting BM before surgery consult. Vitals Vitals Vital Signs Date Time Temp Pulse Resp B/P (MAP) Pulse Ox O2 Delivery O2 Flow Rate FiO2 06/12/20 07:20 Room Air 06/12/20 06:08 97.9 49 18 126/88 (101) 97 97.9 Physical Exam Physical Exam GEN: No apparent distress. Alert and oriented HEENT: Normal cephalic, atraumatic, external auditory canals are patent NECK: Supple, no JVD, no thyromegaly was noted LUNGS: Bilateral crackles HEART: RRR, S1, S2 present. Peripheral pulses intact, no obvious murmurs noted ABDOMEN: Soft, nontender. Positive bowel sounds, no organomegaly, normal bowel sounds EXTREMITIES: Without clubbing, cyanosis, or edema. Pedal pulses intact. Negative Homans sign General: Alert, Oriented X3, Cooperative Heart: Regular rate, Normal S1, Normal S2 Lungs: Clear Abdomen: Soft, Other (diffusely tender, no guarding, ND --abdomen with cuts/scars, bruises ) Extremities: No clubbing, No cyanosis Skin: No rashes, No breakdown Labs LABS CT Abdomen and Pelvis without contrast History: Foreign body Technique: Noncontrast CT imaging was performed of the abdomen and pelvis. Multiplanar images are reviewed. Exposure: One or more of the following individualized dose reduction techniques were utilized for this examination: 1. Automated exposure control 2. Adjustment of the mA and/or kV according to patient size 3. Use of iterative reconstruction technique. Comparison: June 08, 2020 Findings: There are again 2 foreign bodies in the rectum, somewhat more proximally located than previously. One of these measures about 5.2 cm x 1.8 cm x 1.5 cm. More distal focus measures about 6.7 cm x 1.8 cm x 1.9 cm. No abscess or free air is identified. Bowel is not significantly dilated. Urinary bladder is somewhat distended. There again has been appendectomy. No new abnormality is identified of the liver, spleen, or pancreas allowing for noncontrast technique. There is no hydronephrosis or urolithiasis. Gallbladder is present without obvious intraluminal abnormality by CT. There is no abnormality of the limited visualized lung bases. There is L4-5 artificial disc. Impression: 1. There is again 2 foreign bodies in the rectum. Electronically signed by: Naomi Dukes MD (06/11/2020 7:26 PM) [facility] DICTATED and SIGNED BY: NAOMI DUKES MD Assessment and Plan Assessmemt and Plan Problems Medical Problems: (1) Foreign body in colon, initial encounter Status: Acute (2) Hematemesis Status: Acute parents will be dpoa decisions must be made about the use of emergency treatments to keep you alive. Doctors can use several artificial or mechanical ways to try to do this. Decisions that might come up at this time relate to: CPR (cardiopulmonary resuscitation) Ventilator use Artificial nutrition (tube feeding) and artificial hydration (IV, or intravenous, fluids) Comfort care What is CPR? Cardiopulmonary resuscitation might restore your heartbeat if your heart stops or is in a life-threatening abnormal rhythm. It involves repeatedly pushing on the chest with force, while putting air into the lungs. This force has to be quite strong, and sometimes ribs are broken or a lung collapses. Nancy ctric shocks, known as defibrillation, and medicines might also be used as part of the process. The heart of a young, otherwise healthy person might resume beating normally after CPR. Often, CPR does not succeed in older adults who have multiple chronic illnesses or who are already frail. Using a ventilator as emergency treatment. Ventilators are machines that help you breathe. A tube connected to the ventilator is put through the throat into the trachea (windpipe) so the machine can force air into the lungs. Putting the tube down the throat is called intubation. Because the tube is uncomfortable, medicines are often used to keep you sedated while on a ventilator. If you are expected to remain on a ventilator for a long time, a doctor may perform a tracheotomy or "trach" (rhymes with "make"). During this bedside surgery, the tube is inserted directly into the trachea through a hole in the neck. For long- term help with breathing, a trach is more comfortable, and sedation is not needed. People using such a breathing tube are not able to speak without special help because exhaled air does not go past their vocal cords. Using artificial nutrition and hydration near the end of life. If you are not able to eat, you may be fed through a feeding tube that is threaded through the nose down to your stomach. If tube feeding is still needed for an extended period, a feeding tube may be surgically inserted directly into your stomach. Hand feeding (sometimes called assisted oral feeding) is an alternative to tube feeding. This approach may have fewer risks, especially for people with dementia. If you are not able to drink, you may be provided with IV fluids. These are delivered through a thin plastic tube inserted into a vein. Comment Review of Relevant I have reviewed the following items ruddy (where applicable) has been applied. Medications Current Medications Sodium Chloride 1,000 ml @ 1,000 mls/hr 1X ONCE IV Last administered on 06/08/20at 21:35; Start 06/08/20 at 21:00; Stop 06/08/20 at 21:59; Status DC Pantoprazole Sodium (PROTONIX VIAL for IV PUSH) 40 mg 1X ONCE IVP Last administered on 06/08/20at 21:35; Start 06/08/20 at 21:00; Stop 06/08/20 at 21:01; Status DC Iohexol (Omnipaque 300 Mg/ml) 60 ml 1X ONCE IV Last administered on 06/08/20at 22:30; Start 06/08/20 at 21:45; Stop 06/08/20 at 21:46; Status DC Info (CONTRAST GIVEN -- Rx MONITORING) 1 each PRN DAILY PRN MC SEE COMMENTS; Start 06/08/20 at 21:45; Stop 06/10/20 at 21:44; Status DC Fentanyl Citrate (Fentanyl 2ml Vial) 50 mcg 1X ONCE IV Last administered on 06/08/20at 23:16; Start 06/08/20 at 23:15; Stop 06/08/20 at 23:16; Status DC Fentanyl Citrate (Fentanyl 2ml Vial) 50 mcg PRN Q4HRS PRN IVP SEVERE PAIN 7-10 Last administered on 06/12/20at 07:20; Start 06/09/20 at 01:30 Pantoprazole Sodium (PROTONIX VIAL for IV PUSH) 40 mg DAILYAC IVP Last administered on 06/09/20at 09:42; Start 06/10/20 at 07:30; Stop 06/09/20 at 14:12; Status DC Magnesium Citrate (Citroma) 296 ml 1X ONCE PO Last administered on 06/09/20at 09:42; Start 06/09/20 at 09:15; Stop 06/09/20 at 09:18; Status DC Pantoprazole Sodium (Protonix) 40 mg DAILYAC PO Last administered on 06/12/20at 06:12; Start 06/10/20 at 07:30 Sucralfate (Carafate) 1 gm BIDWMEALS PO Last administered on 06/12/20at 07:20; Start 06/09/20 at 17:00 Pantoprazole Sodium (Protonix) 40 mg 1X ONCE PO Last administered on 06/11/20at 07:01; Start 06/11/20 at 07:00; Stop 06/11/20 at 07:01; Status DC Active Scripts Active Miralax (Polyethylene Glycol 3350) 17 Gm Powd.pack 1 Packet PO DAILY dissolve in water Protonix (Pantoprazole Sodium) 20 Mg Tablet. 1 Tab PO DAILY Vitals/I & O Vital Sign - Last 24 Hours 06/11/20 06/11/20 06/11/20 06/11/20 10:19 10:56 11:04 14:24 Temp 98.5 98.5 Pulse 50 Resp 16 B/P (MAP) 129/78 (95) O2 Delivery Room Air Room Air Room Air 06/11/20 06/11/20 06/11/20 06/11/20 15:25 18:23 18:50 19:16 Temp 98.7 98.1 98.7 98.1 Pulse 49 54 Resp 16 18 B/P (MAP) 124/74 (91) 139/85 (103) Pulse Ox 98 O2 Delivery Room Air Room Air Room Air Room Air 06/11/20 06/11/20 06/11/20 06/11/20 19:50 22:34 22:36 23:04 Temp 98.4 98.4 Pulse 54 Resp 18 18 B/P (MAP) 151/96 (114) Pulse Ox 98 99 O2 Delivery Room Air Room Air Room Air Room Air 06/12/20 06/12/20 06/12/20 06/12/20 02:46 02:50 03:20 06:08 Temp 97.7 97.9 97.7 97.9 Pulse 50 49 Resp 18 18 18 B/P (MAP) 131/84 (100) 126/88 (101) Pulse Ox 99 99 97 O2 Delivery Room Air Room Air Room Air Room Air 06/12/20 07:20 O2 Delivery Room Air Intake and Output 06/11/20 06/11/20 06/12/20 15:00 23:00 07:00 Intake Total 450 ml 1440 ml 450 ml Output Total 450 ml 350 ml Balance 450 ml 990 ml 100 ml Justicifation of Admission Dx: Justifications for Admission: Justification of Admission Dx: Yes DENNIS MILNER MD Jun 12, 2020 09:48
--- NOTE | 2020-06-12 10:31 | NUR ---
Consult called for Dr. Crow and spoke with nurse Piper at office.
[2020-06-12 11:07] VITALS: BP 139/93
[2020-06-12] MEDS ORDERED: POLYETHYLENE GLYCOL 3350 BTL 238 GM POWDER PO ONE (11:30)
[2020-06-12] MEDS ORDERED: BISACODYL 10 MG SUPP.RECT. PR ONE (11:30)
[2020-06-12 15:06] VITALS: BP 121/78
--- NOTE | 2020-06-12 17:02 | PDOC ---
F/U PHYSCH PROG NOTE Subjective: Gentleman is seen for routine follow-up. Progress is reviewed with nursing staff. He reportedly said that foreign body could be a perfume bottle in his rectum. He is on clear liquid diet. When discussed, he continues to be evasive, guarded, and answering and monosyllabic sentences. Not very interactive and superficial in presentation. According to the collateral information obtained, he has been to several medical centers around the area with similar complaints and got admitted there. Denies suicidal or homicidal thoughts. Denies auditory or visual hallucinations. No evidence of kallie or hypomania. Objective: 14 point review of system is otherwise negative except for stated above. Vital Signs: Vital Signs Date Time Temp Pulse Resp B/P (MAP) Pulse Ox O2 Delivery O2 Flow Rate FiO2 06/12/20 16:00 Room Air 06/12/20 15:06 98.4 70 18 121/78 (92) 95 98.4 Medications: Current Medications Medications (Trade) Dose Ordered Sig/Tess Start Time Stop Time Status Last Admin Dose Admin Bisacodyl (Dulcolax Supp) 10 mg 1X ONCE 06/12/20 11:30 06/12/20 11:31 DC 06/12/20 11:00 10 MG Fentanyl Citrate (Fentanyl 2ml Vial) 50 mcg PRN Q4HRS PRN 06/09/20 01:30 06/12/20 15:36 50 MCG Info (CONTRAST GIVEN -- Rx MONITORING) 1 each PRN DAILY PRN 06/08/20 21:45 06/10/20 21:44 DC Iohexol (Omnipaque 300 Mg/ml) 60 ml 1X ONCE 06/08/20 21:45 06/08/20 21:46 DC 06/08/20 22:30 60 ML Magnesium Citrate (Citroma) 296 ml 1X ONCE 06/09/20 09:15 06/09/20 09:18 DC 06/09/20 09:42 296 ML Pantoprazole Sodium (PROTONIX VIAL for IV PUSH) 40 mg DAILYAC 06/10/20 07:30 06/09/20 14:12 DC 06/09/20 09:42 40 MG Pantoprazole Sodium (Protonix) 40 mg 1X ONCE 06/11/20 07:00 06/11/20 07:01 DC 06/11/20 07:01 40 MG Polyethylene Glycol (miraLAX Powder BULK BOTTLE) 238 gm 1X ONCE 06/12/20 11:30 06/12/20 11:31 DC 06/12/20 11:22 238 GM Sodium Chloride 1,000 ml @ 1,000 mls/hr 1X ONCE 06/08/20 21:00 06/08/20 21:59 DC 06/08/20 21:35 1,000 MLS/HR Sucralfate (Carafate) 1 gm BIDWMEALS 06/09/20 17:00 06/12/20 16:34 1 GM Physical Exam: Mental Status Exam: Young gentleman appears as a stated age Cooperative but evasive Alert and oriented Thought processes concrete Denies suicidal or homicidal thoughts. Denies auditory or visual hallucinations No abnormal perception noted Mood is dysthymic Affect is constricted Impulse control is limited Insight is limited Judgment is limited Attention span and concentration fair Recent and remote memory intact Physical Exam: Refer to Physician's note. ARMHOLE PRESSER: No focal deficit MSK: No EPS, TDK, or abnormal involuntary movements Diagnosis: Unspecified mood disorder Unspecified factitious disorder Unspecified anxiety disorder Assessment: Gentleman with diffuse abdominal pain and history of foreign body in rectum has strange history and presentation. Given his evasive behavior, limited intera ction devoid of details, and circumstances raise many questions including malingering, and unspecified mood disorder or factitious disorder. However, he needs a thorough evaluation to rule out any organic pathology. At this point no treatment is recommended. Collateral information from family and girlfriend would be of great help to determine or narrow down the diagnosis. He continues to be evasive and guarded with monosyllabic answers. He continues to maintain same status, guarded, evasive regarding questions. He has been to different hospitals around the area with same complaints. Plan: No medication is recommended. Additionally, patient thinks that he is not in need of any medication. Continue to monitor for symptoms. Requesting social insurance specialist director community organization to obtain collateral information. Psychoeducation provided. Supportive psychotherapy provided Thank you for involving good patient care. JOHNY VALENTIN MD Jun 12, 2020 17:02
--- NOTE | 2020-06-12 18:25 | NUR ---
Transferred to room 424 by w/c. Pt states too weak to ambulate. No results after receiving the dulcolax suppository and Miralax Powder drink. Cont. monitor.
[2020-06-12 19:00] VITALS: BP 147/97
[2020-06-12] MEDS ORDERED: MAGNESIUM CITRATE 296 ML SOLUTION. PO ONE (20:15)
[2020-06-12 23:00] VITALS: BP 137/84
[2020-06-12 23:02] LABS: BASO % 1 % (0-3); EOS # 0.1 x10^3/uL (0.0-0.7); EOS % 2 % (0-3); HEMATOCRIT 37.4 % (39.0-53.0); HEMOGLOBIN 13.1 g/dL (13.0-17.5); LYMPH % 30 % (24-48); MEAN CORPUSCULAR HEMOGLOBIN 33 pg (25-35); MEAN CORPUSCULAR HGB CONC 35 g/dL (31-37); MEAN CORPUSCULAR VOLUME 95 fL (79-100); MONO # 0.4 x10^3/uL (0.0-1.1); MONO % 11 % (0-9); NEUT # 1.8 x10^3/uL (1.8-7.7); NEUT % 56 % (31-73); PLATELET COUNT 135 x10^3/uL (140-400); RED BLOOD COUNT 3.93 x10^6/uL (4.30-5.70); RED CELL DISTRIBUTION WIDTH 14.1 % (11.5-14.5); WHITE BLOOD COUNT 3.3 x10^3/uL (4.0-11.0)
[2020-06-12 23:20] LABS: ALBUMIN 3.3 g/dL (3.4-5.0); ALBUMIN/GLOBULIN RATIO 1.1 (1.0-1.7); CALCIUM 8.2 mg/dL (8.5-10.1); CREATININE 1.2 mg/dL (0.7-1.3); GFR 67.8; POTASSIUM 3.6 mmol/L (3.5-5.1); TOTAL BILIRUBIN 0.5 mg/dL (0.2-1.0); TOTAL PROTEIN 6.4 g/dL (6.4-8.2)
[2020-06-13] MEDS: fentaNYL PF VIAL 100 MCG/2 ML VIAL IVP PRN ×5 (00:33→17:56)
[2020-06-13 03:00] VITALS: BP 107/64
[2020-06-13 07:00] VITALS: BP 127/78
[2020-06-13] MEDS: PANTOPRAZOLE 40 MG TABLET.DR. PO SCH (09:02)
[2020-06-13] MEDS: SUCRALFATE 1 GM TABLET. PO SCH ×2 (09:02→17:55)
[2020-06-13 11:44] VITALS: BP 146/75
--- NOTE | 2020-06-13 14:24 | PDOC ---
[facility] PROGRESS NOTE Date of Service DOS: DATE: 06/13/20 TIME: 14:23 Chief Complaint Chief Complaint Foreign body in rectum We will repeat CT abdomen pelvis Pending further surgery evaluation if foreign bodies retained for possible proctoscopy or EUA 06/11 ct foreign bodies in the rectum, somewhat more proximally located than previously. One of these measures about 5.2 cm x 1.8 cm x 1.5 cm. More distal focus measures about 6.7 cm x 1.8 cm x 1.9 cm. No abscess or free air is identified. plan re-consult gen surgery 38 min pt exam, chart review, > 50% of time spent with exam, chart review, pt care coordination History of Present Illness History of Present Illness 06/10/20 Pt seen and examined. Pt resting in bed, complains of minor pain and requests more pain meds. Pt believes FB may be a perfume bottle. Pt has not yet responded to laxative therapy, awaiting BM before surgery consult. 06/13/2020 Patient seen and examined. No acute events overnight. Continues to have minimal lower abdominal pains. No bloody stools. Foreign body still not retrieved even after Dulcolax suppository. Patient's chart, labs, images were reviewed and discussed with RN Vitals/I&O Vitals/I&O: Vital Signs Date Time Temp Pulse Resp B/P (MAP) Pulse Ox O2 Delivery O2 Flow Rate FiO2 06/13/20 13:43 17 Room Air 06/13/20 11:44 97.9 70 146/75 (98) 100 97.9 I & O 06/12/20 06/12/20 06/13/20 15:00 23:00 07:00 Intake Total 1130 ml 420 ml 420 ml Output Total 1500 ml 650 ml Balance 1130 ml -1080 ml -230 ml Physical Exam Physical Exam: GEN: No apparent distress. Alert and oriented HEENT: Normal cephalic, atraumatic, external auditory canals are patent NECK: Supple, no JVD, no thyromegaly was noted LUNGS: Bilateral crackles HEART: RRR, S1, S2 present. Peripheral pulses intact, no obvious murmurs noted ABDOMEN: Soft, nontender. Positive bowel sounds, no organomegaly, normal bowel sounds EXTREMITIES: Without clubbing, cyanosis, or edema. Pedal pulses intact. Negative Homans sign General: Alert, Oriented X3, Cooperative Heart: Regular rate, Normal S1, Normal S2 Lungs: Clear Abdomen: Soft, Other (diffusely tender, no guarding, ND --abdomen with cuts/scars, bruises ) Extremities: No clubbing, No cyanosis Skin: No rashes, No breakdown Labs Labs: Laboratory Tests Test 06/12/20 20:00 White Blood Count 3.3 x10^3/uL (4.0-11.0) Red Blood Count 3.93 x10^6/uL (4.30-5.70) Hemoglobin 13.1 g/dL (13.0-17.5) Hematocrit 37.4 % (39.0-53.0) Mean Corpuscular Volume 95 fL (79-100) Mean Corpuscular Hemoglobin 33 pg (25-35) Mean Corpuscular Hemoglobin Concent 35 g/dL (31-37) Red Cell Distribution Width 14.1 % (11.5-14.5) Platelet Count 135 x10^3/uL (140-400) Neutrophils (%) (Auto) 56 % (31-73) Lymphocytes (%) (Auto) 30 % (24-48) Monocytes (%) (Auto) 11 % (0-9) Eosinophils (%) (Auto) 2 % (0-3) Basophils (%) (Auto) 1 % (0-3) Neutrophils # (Auto) 1.8 x10^3/uL (1.8-7.7) Lymphocytes # (Auto) 1.0 x10^3/uL (1.0-4.8) Monocytes # (Auto) 0.4 x10^3/uL (0.0-1.1) Eosinophils # (Auto) 0.1 x10^3/uL (0.0-0.7) Basophils # (Auto) 0.0 x10^3/uL (0.0-0.2) Sodium Level 142 mmol/L (136-145) Potassium Level 3.6 mmol/L (3.5-5.1) Chloride Level 107 mmol/L (98-107) Carbon Dioxide Level 26 mmol/L (21-32) Anion Gap 9 (6-14) Blood Urea Nitrogen 7 mg/dL (8-26) Creatinine 1.2 mg/dL (0.7-1.3) Estimated GFR (Cockcroft-Gault) 67.8 BUN/Creatinine Ratio 6 (6-20) Glucose Level 81 mg/dL (70-99) Calcium Level 8.2 mg/dL (8.5-10.1) Total Bilirubin 0.5 mg/dL (0.2-1.0) Aspartate Amino Transf (AST/SGOT) 13 U/L (15-37) Alanine Aminotransferase (ALT/SGPT) 36 U/L (16-63) Alkaline Phosphatase 45 U/L (46-116) Total Protein 6.4 g/dL (6.4-8.2) Albumin 3.3 g/dL (3.4-5.0) Albumin/Globulin Ratio 1.1 (1.0-1.7) Assessment and Plan Assessmemt and Plan Problems Medical Problems: (1) Foreign body in colon, initial encounter Status: Acute (2) Hematemesis Status: Acute Comment Review of Relevant I have reviewed the following items ruddy (where applicable) has been applied. Medications: Current Medications Medications (Trade) Dose Ordered Sig/Tess Route PRN Reason Start Time Stop Time Status Last Admin Dose Admin Magnesium Citrate (Citroma) 296 ml 1X ONCE PO 06/12/20 20:15 06/12/20 20:16 DC 06/12/20 23:10 Justifications for Admission Other Justification BASILIO TAN MD Jun 13, 2020 14:24
[2020-06-13 15:14] VITALS: BP 139/89
[2020-06-13 19:00] VITALS: BP 137/86
[2020-06-13 23:00] VITALS: BP 138/77
[2020-06-14] MEDS: fentaNYL PF VIAL 100 MCG/2 ML VIAL IVP PRN ×6 (02:23→23:50)
[2020-06-14 03:00] VITALS: BP 146/91
[2020-06-14 07:18] VITALS: BP 125/75
[2020-06-14] MEDS: SUCRALFATE 1 GM TABLET. PO SCH ×2 (09:07→17:21)
[2020-06-14] MEDS: PANTOPRAZOLE 40 MG TABLET.DR. PO SCH (09:07)
[2020-06-14 11:15] VITALS: BP 117/78
--- NOTE | 2020-06-14 13:29 | NUR ---
I had conversation with Dr Guzman today. He reports there is no surgical intervention scheduled at this time. Focus will be on bowel stimulants and waiting for pt to pass foreign object. Pt has reported one loose stool yesterday but says he did not pass anything. Orders received for tap water enema. Pt notified but wishes to wait another hour to see if he can produce on his own.
[2020-06-14 15:20] VITALS: BP 127/85
[2020-06-14] MEDS: MAGNESIUM CITRATE 296 ML SOLUTION. PO SCH (17:21)
--- NOTE | 2020-06-14 18:01 | PDOC ---
[facility] PROGRESS NOTE Date of Service DOS: DATE: 06/14/20 TIME: 17:59 Chief Complaint Chief Complaint Foreign body in rectum Pending further surgery evaluation if foreign bodies retained for possible proctoscopy or EUA 06/11 ct foreign bodies in the rectum, somewhat more proximally located than p reviously. One of these measures about 5.2 cm x 1.8 cm x 1.5 cm. More distal focus measures about 6.7 cm x 1.8 cm x 1.9 cm. No abscess or free air is identified. plan Appreciate surgery recommendations, no surgery at this time We will be more aggressive with bowel regimen. We will start mag citrate p.o. and tap water enemas History of Present Illness History of Present Illness 06/10/20 Pt seen and examined. Pt resting in bed, complains of minor pain and requests more pain meds. Pt believes FB may be a perfume bottle. Pt has not yet responded to laxative therapy, awaiting BM before surgery consul t. 06/13/2020 Patient seen and examined. No acute events overnight. Continues to have minimal lower abdominal pains. No bloody stools. Foreign body still not retrieved even after Dulcolax suppository. Patient's chart, labs, images were reviewed and discussed with RN 06/14/2020 Patient seen and examined bedside. Patient continues to have daily loose stools without any foreign body retrieved. Even after suppositories and laxatives. Will attempt tap water enema. Patient's chart, labs, images were reviewed and discussed with RN Vitals/I&O Vitals/I&O: Vital Signs Date Time Temp Pulse Resp B/P (MAP) Pulse Ox O2 Delivery O2 Flow Rate FiO2 06/14/20 15:20 98.7 53 19 127/85 (99) 100 Room Air 98.7 I & O 06/13/20 06/13/20 06/14/20 15:00 23:00 07:00 Intake Total 250 ml 400 ml 120 ml Balance 250 ml 400 ml 120 ml Physical Exam Physical Exam: GEN: No apparent distress. Alert and oriented HEENT: Normal cephalic, atraumatic, external auditory canals are patent NECK: Supple, no JVD, no thyromegaly was noted LUNGS: Bilateral crackles HEART: RRR, S1, S2 present. Peripheral pulses intact, no obvious murmurs noted ABDOMEN: Soft, nontender. Positive bowel sounds, no organomegaly, normal bowel sounds EXTREMITIES: Without clubbing, cyanosis, or edema. Pedal pulses intact. Negative Homans sign General: Alert, Oriented X3, Cooperative Heart: Regular rate, Normal S1, Normal S2 Lungs: Clear Abdomen: Soft, Other (diffusely tender, no guarding, ND --abdomen with cuts/scars, bruises ) Extremities: No clubbing, No cyanosis Skin: No rashes, No breakdown Assessment and Plan Assessmemt and Plan Problems Medical Problems: (1) Foreign body in colon, initial encounter Status: Acute (2) Hematemesis Status: Acute Comment Review of Relevant I have reviewed the following items ruddy (where applicable) has been applied. Medications: Current Medications Medications (Trade) Dose Ordered Sig/Tess Route PRN Reason Start Time Stop Time Status Last Admin Dose Admin Magnesium Citrate (Citroma) 296 ml DAILY PO 06/14/20 17:30 06/14/20 17:21 Justifications for Admission Other Justification BASILIO TAN MD Jun 14, 2020 18:01
[2020-06-14 19:00] VITALS: BP 154/92
[2020-06-14 23:00] VITALS: BP 134/83
[2020-06-15 03:06] VITALS: BP 131/77
[2020-06-15] MEDS: fentaNYL PF VIAL 100 MCG/2 ML VIAL IVP PRN ×5 (04:22→20:51)
[2020-06-15 05:34] LABS: CALCIUM 8.3 mg/dL (8.5-10.1); CREATININE 1.3 mg/dL (0.7-1.3); GFR 61.8; POTASSIUM 3.8 mmol/L (3.5-5.1)
[2020-06-15 07:00] VITALS: BP 137/83
--- NOTE | 2020-06-15 07:57 | PDOC ---
Provider Note Date of Service: DATE: 06/15/20 TIME: 07:57 Provider Note KUB ordered for today if continues to have retained foreign body within the rectum we will plan on exam under anesthesia with rigid proctoscopy tomorrow Justifications for Admission Other Justification DENNIS VARELA MD Jun 15, 2020 07:57
[2020-06-15] MEDS: PANTOPRAZOLE 40 MG TABLET.DR. PO SCH (08:35)
[2020-06-15] MEDS: SUCRALFATE 1 GM TABLET. PO SCH ×2 (08:35→16:35)
[2020-06-15] MEDS: MAGNESIUM CITRATE 296 ML SOLUTION. PO SCH (08:35)
[2020-06-15 10:47] VITALS: BP 121/71
--- NOTE | 2020-06-15 12:08 | PDOC ---
[facility] PROGRESS NOTE Date of Service DOS: DATE: 06/15/20 TIME: 12:07 Chief Complaint Chief Complaint Foreign body in rectum Leukopenia Thrombocytopenia Unspecified mood disorder Unspecified factitious disorder Unspecified anxiety disorder Transaminitis Pending further surgery evaluation if foreign bodies retained for possible proctoscopy or EUA plan Appreciate surgery recommendations, no surgery at this time We will be more aggressive with bowel regimen. We will start mag citrate p.o. and change enema to milk of molasses History of Present Illness History of Present Illness 06/10: Pt believes FB may be a perfume bottle.Pt has not yet responded to laxative therapy, awaiting BM before surgery consult. 06/11 ct foreign bodies in the rectum, somewhat more proximally located than previously. One of these measures about 5.2 cm x 1.8 cm x 1.5 cm. More distal focus measures about 6.7 cm x 1.8 cm x 1.9 cm. No abscess or free air is identified. 06/13: Patient seen and examined. No acute events overnight. Continues to have minimal lower abdominal pains. No bloody stools. Foreign body still not retrieved even after Dulcolax suppository. Patient's chart, labs, images were reviewed and discussed with RN 06/14: Patient seen and examined bedside. Patient continues to have daily loose stools without any foreign body retrieved. Even after suppositories and laxatives. Will attempt tap water enema. Patient's chart, labs, images were reviewed and discussed with CAT VILLEDA reviewed with retained foreign body in rectum. Patient is requesting more IV fentanyl. He had no movement after tapwater enema yesterday. Vitals/I&O Vitals/I&O: Vital Signs Date Time Temp Pulse Resp B/P (MAP) Pulse Ox O2 Delivery O2 Flow Rate FiO2 06/15/20 10:47 97.8 64 17 121/71 (88) 97 Room Air 97.8 I & O 06/14/20 06/14/20 06/15/20 15:00 23:00 07:00 Intake Total 440 ml 360 ml Output Total 400 ml 800 ml Balance 40 ml 360 ml -800 ml Physical Exam Physical Exam: GEN: No apparent distress. Alert and oriented HEENT: Normal cephalic, atraumatic, external auditory canals are patent NECK: Supple, no JVD, no thyromegaly was noted LUNGS: Bilateral crackles HEART: RRR, S1, S2 present. Peripheral pulses intact, no obvious murmurs noted ABDOMEN: Soft, nontender. Positive bowel sounds, no organomegaly, normal bowel sounds EXTREMITIES: Without clubbing, cyanosis, or edema. Pedal pulses intact. Negative Homans sign General: Alert, Oriented X3, Cooperative Heart: Regular rate, Normal S1, Normal S2 Lungs: Clear Abdomen: Soft, Other (diffusely tender, no guarding, ND --abdomen with cuts/scars, bruises ) Extremities: No clubbing, No cyanosis Skin: No rashes, No breakdown Labs Labs: Laboratory Tests Test 06/15/20 05:00 Sodium Level 143 mmol/L (136-145) Potassium Level 3.8 mmol/L (3.5-5.1) Chloride Level 107 mmol/L (98-107) Carbon Dioxide Level 30 mmol/L (21-32) Anion Gap 6 (6-14) Blood Urea Nitrogen 6 mg/dL (8-26) Creatinine 1.3 mg/dL (0.7-1.3) Estimated GFR (Cockcroft-Gault) 61.8 Glucose Level 87 mg/dL (70-99) Calcium Level 8.3 mg/dL (8.5-10.1) Assessment and Plan Assessmemt and Plan Problems Medical Problems: (1) Foreign body in colon, initial encounter Status: Acute (2) Hematemesis Status: Acute Comment Review of Relevant I have reviewed the following items ruddy (where applicable) has been applied. Medications: Current Medications Medications (Trade) Dose Ordered Sig/Tess Route PRN Reason Start Time Stop Time Status Last Admin Dose Admin Magnesium Citrate (Citroma) 296 ml DAILY PO 06/14/20 17:30 06/15/20 08:35 Justifications for Admission Other Justification KUMAR BOSE MD Jun 15, 2020 12:08
--- NOTE | 2020-06-15 13:22 | RAD ---
KUB INDICATION: Reason: foreign body rectum / Spl. Instructions: / History: . COMPARISON: None. TECHNIQUE: Supine view of the abdomen was obtained. FINDINGS: Nonobstructive bowel gas pattern. No free air on this limited supine image. Persistent linear foreign bodies overlying the rectum. No acute osseous abnormality. IMPRESSION: Persistent linear foreign bodies overlying the rectum. Nonobstructive bowel gas pattern. Electronically signed by: Ren Dempsey MD (06/15/2020 1:19 PM) [id number]
[2020-06-15 15:15] VITALS: BP 111/84
[2020-06-15] MEDS ORDERED: ONDANSETRON PF 4 MG/2 ML VIAL. IV PRN (15:15)
[2020-06-15] MEDS ORDERED: traMADol 50 MG TABLET PO PRN (15:15)
[2020-06-15] MEDS ORDERED: GLYCERIN ADULT 1 SUPP.RECT. PR PRN (15:15)
[2020-06-15] MEDS: POLYETHYLENE GLYCOL 3350 17 GM PACKET. PO SCH (16:35)
--- NOTE | 2020-06-15 18:04 | NUR ---
SW following. Spoke with RN and reviewed chart. Pt on room air. Pt on IV pain medications. Pt on a clear liquid diet and bowel stimulants are being given to assist with passing of the foreign object in pt's anus. SW following.
--- NOTE | 2020-06-15 18:24 | PDOC ---
F/U PHYSCH PROG NOTE Subjective: Gentleman seen for routine follow-up. Progress is reviewed with nursing staff. He is a scheduled for endoscopic procedure tomorrow as he did not pass foreign body yet. He continues to be resistant to psychological exploration and denying everything. Does not want to prolong conversation. Denies suicidal or homicidal thoughts. Denies auditory or visual hallucinations. No evidence of kallie or hypomania. Objective: 14 point review of system is otherwise negative except for stated above. Vital Signs: Vital Signs Date Time Temp Pulse Resp B/P (MAP) Pulse Ox O2 Delivery O2 Flow Rate FiO2 06/15/20 15:15 98.2 52 16 111/84 (93) 100 Room Air 98.2 Labs: Laboratory Tests Test 06/15/20 05:00 Sodium Level 143 mmol/L (136-145) Potassium Level 3.8 mmol/L (3.5-5.1) Chloride Level 107 mmol/L (98-107) Carbon Dioxide Level 30 mmol/L (21-32) Anion Gap 6 (6-14) Blood Urea Nitrogen 6 mg/dL (8-26) L Creatinine 1.3 mg/dL (0.7-1.3) Estimated GFR (Cockcroft-Gault) 61.8 Glucose Level 87 mg/dL (70-99) Calcium Level 8.3 mg/dL (8.5-10.1) L Laboratory Tests 06/15/20 05:00 Medications: Current Medications Medications (Trade) Dose Ordered Sig/Tess Start Time Stop Time Status Last Admin Dose Admin Bisacodyl (Dulcolax Supp) 10 mg 1X ONCE 06/12/20 11:30 06/12/20 11:31 DC 06/12/20 11:00 10 MG Fentanyl Citrate (Fentanyl 2ml Vial) 50 mcg PRN Q5MIN PRN 06/16/20 07:00 06/17/20 06:59 Glycerin (Sani-Supp Adult) 1 supp PRN DAILY PRN 06/15/20 15:15 Hydromorphone HCl (Dilaudid) 0.5 mg PRN Q10MIN PRN 06/16/20 07:00 06/17/20 06:59 Info (CONTRAST GIVEN -- Rx MONITORING) 1 each PRN DAILY PRN 06/08/20 21:45 06/10/20 21:44 DC Iohexol (Omnipaque 300 Mg/ml) 60 ml 1X ONCE 06/08/20 21:45 06/08/20 21:46 DC 06/08/20 22:30 60 ML Lidocaine HCl (Xylocaine-Mpf 1% 2ml Vial) 2 ml PRN 1X PRN 06/16/20 07:00 06/17/20 06:59 Magnesium Citrate (Citroma) 296 ml DAILY 06/14/20 17:30 06/15/20 08:35 296 ML Ondansetron HCl (Zofran) 4 mg PRN Q4HRS PRN 06/15/20 15:15 Pantoprazole Sodium (PROTONIX VIAL for IV PUSH) 40 mg DAILYAC 06/10/20 07:30 06/09/20 14:12 DC 06/09/20 09:42 40 MG Pantoprazole Sodium (Protonix) 40 mg 1X ONCE 06/11/20 07:00 06/11/20 07:01 DC 06/11/20 07:01 40 MG Polyethylene Glycol (miraLAX PACKET) 17 gm DAILY 06/15/20 15:30 06/15/20 16:35 17 GM Polyethylene Glycol (miraLAX Powder BULK BOTTLE) 238 gm 1X ONCE 06/12/20 11:30 06/12/20 11:31 DC 06/12/20 11:22 238 GM Ringer's Solution 1,000 ml @ 30 mls/hr Q24H 06/16/20 07:00 06/16/20 18:59 Sodium Chloride 1,000 ml @ 1,000 mls/hr 1X ONCE 06/08/20 21:00 06/08/20 21:59 DC 06/08/20 21:35 1,000 MLS/HR Sucralfate (Carafate) 1 gm BIDWMEALS 06/09/20 17:00 06/15/20 16:35 1 GM Tramadol HCl (Ultram) 50 mg PRN Q6HRS PRN 06/15/20 15:15 Physical Exam: Mental Status Exam: Young gentleman appears as a stated age Cooperative but evasive Alert and oriented Thought processes concrete Denies suicidal or homicidal thoughts. Denies auditory or visual hallucinations No abnormal perception noted Mood is dysthymic Affect is constricted Impulse control is limited Insight is limited Judgment is limited Attention span and concentration fair Recent and remote memory intact Physical Exam: Refer to Physician's note. CORRECTIONS CORPORAL: No focal deficit MSK: No EPS, TDK, or abnormal involuntary movements Diagnosis: Unspecified mood disorder Unspecified factitious disorder Unspecified anxiety disorder Assessment: Gentleman with diffuse abdominal pain and history of foreign body in rectum has strange history and presentation. Given his evasive behavior, limited interaction devoid of details, and circumstances raise many questions including malingering, and unspecified mood disorder or factitious disorder. However, he needs a thorough evaluation to rule out any organic pathology. At this point no treatment is recommended. Collateral information from family and girlfriend would be of great help to determine or narrow down the diagnosis. He continues to be evasive and guarded with monosyllabic answers. He continues to maintain same status, guarded, evasive regarding questions. He has been to different hospitals around the area with same complaints. 06/15/2020, he continues to be guarded, resistant to psychological exploration. Denies depression and anxiety. . Plan: No medication is recommended. Additionally, patient thinks that he is not in need of any medication. Continue to monitor for symptoms. Requesting social science teacher hoe worker to obtain collateral information. Psychoeducation provided. Supportive psychotherapy provided Thank you for involving good patient care JOHNY VALENTIN MD Jun 15, 2020 18:24
[2020-06-15 19:02] VITALS: BP 142/81
[2020-06-15 23:30] VITALS: BP 138/90
[2020-06-16] VITALS (16 sets, daily range): BP systolic 119–145; BP diastolic 51–98
[2020-06-16] MEDS: fentaNYL PF VIAL 100 MCG/2 ML VIAL IVP PRN ×5 (01:28→20:19)
[2020-06-16] MEDS ORDERED: fentaNYL PF VIAL 100 MCG/2 ML VIAL IV PRN (07:00)
[2020-06-16] MEDS ORDERED: LIDOCAINE 1% PF 2 ML VIAL. ID PRN (07:00)
[2020-06-16] MEDS ORDERED: IV RINGERS,LACTATED 1000ML 1,000 ML IV SCH ×2 (07:00→13:05)
[2020-06-16] MEDS ORDERED: ONDANSETRON PF 4 MG/2 ML VIAL. IV PRN (07:00)
[2020-06-16] MEDS ORDERED: HYDROmorphone 2 MG/ML VIAL IV PRN (07:00)
[2020-06-16] MEDS: PANTOPRAZOLE 40 MG TABLET.DR. PO SCH (07:30)
[2020-06-16] MEDS: SUCRALFATE 1 GM TABLET. PO SCH ×2 (08:00→17:20)
--- NOTE | 2020-06-16 08:16 | PDOC ---
[facility] PROGRESS NOTE Date of Service DOS: DATE: 06/16/20 TIME: 08:16 Chief Complaint Chief Complaint Foreign body in rectum Leukopenia Thrombocytopenia Unspecified mood disorder Unspecified factitious disorder Unspecified anxiety disorder Transaminitis Pending further surgery evaluation if foreign bodies retained for possible proctoscopy or EUA plan Appreciate surgery recommendations, no surgery at this time We will be more aggressive with bowel regimen. We will start mag citrate p.o. and change enema to milk of molasses History of Present Illness History of Present Illness 06/10: Pt believes FB may be a perfume bottle.Pt has not yet responded to laxative therapy, awaiting BM before surgery consult. 06/11 ct foreign bodies in the rectum, somewhat more proximally located than previously. One of these measures about 5.2 cm x 1.8 cm x 1.5 cm. More distal focus measures about 6.7 cm x 1.8 cm x 1.9 cm. No abscess or free air is identified. 06/13: Patient seen and examined. No acute events overnight. Continues to have minimal lower abdominal pains. No bloody stools. Foreign body still not retrieved even after Dulcolax suppository. Patient's chart, labs, images were reviewed and discussed with RN 06/14: Patient seen and examined bedside. Patient continues to have daily loose stools without any foreign body retrieved. Even after suppositories and laxatives. Will attempt tap water enema. Patient's chart, labs, images were reviewed and discussed with RN 06/15: KUB reviewed with retained foreign body in rectum. Patient is requesting more IV fentanyl. He had no movement after tapwater enema yesterday. Afebrile overnight. Still no bowel movements. He wants to make it clear that his periumbilical abdominal pain and hematemesis predated having anything lodged into his rectal area. He does not note that food played a role, but did note that he would have sudden onset periumbilical pain and then sudden onset emesis that was always bloody. He thought Carafate and Protonix were helping initially, does not feel that they are anymore. Vitals/I&O Vitals/I&O: Vital Signs Date Time Temp Pulse Resp B/P (MAP) Pulse Ox O2 Delivery O2 Flow Rate FiO2 06/16/20 03:45 97.7 50 18 130/74 (92) 98 Room Air 97.7 I & O 06/15/20 06/15/20 06/16/20 15:00 23:00 07:00 Intake Total 600 ml Output Total 300 ml 300 ml Balance 600 ml -300 ml -300 ml Physical Exam Physical Exam: GEN: No apparent distress. Alert and oriented HEENT: Normal cephalic, atraumatic, external auditory canals are patent NECK: Supple, no JVD, no thyromegaly was noted LUNGS: Bilateral crackles HEART: RRR, S1, S2 present. Peripheral pulses intact, no obvious murmurs noted ABDOMEN: Soft, nontender. Positive bowel sounds, no organomegaly, normal bowel sounds EXTREMITIES: Without clubbing, cyanosis, or edema. Pedal pulses intact. Negative Homans sign General: Alert, Oriented X3, Cooperative Heart: Regular rate, Normal S1, Normal S2 Lungs: Clear Abdomen: Soft, Other (diffusely tender, no guarding, ND --abdomen with cuts/scars, bruises ) Extremities: No clubbing, No cyanosis Skin: No rashes, No breakdown Assessment and Plan Assessmemt and Plan Problems Medical Problems: (1) Foreign body in colon, initial encounter Status: Acute (2) Hematemesis Status: Acute Comment Review of Relevant I have reviewed the following items ruddy (where applicable) has been applied. Medications: Current Medications Medications (Trade) Dose Ordered Sig/Tess Route PRN Reason Start Time Stop Time Status Last Admin Dose Admin Tramadol HCl (Ultram) 50 mg PRN Q6HRS PRN PO PAIN 06/15/20 15:15 06/15/20 20:46 Polyethylene Glycol (miraLAX PACKET) 17 gm DAILY PO 06/15/20 15:30 06/15/20 16:35 Justifications for Admission Other Justification KUMAR BOSE MD Jun 16, 2020 08:16
[2020-06-16] MEDS: POLYETHYLENE GLYCOL 3350 17 GM PACKET. PO SCH (08:33)
[2020-06-16] MEDS: MAGNESIUM CITRATE 296 ML SOLUTION. PO SCH (08:33)
--- NOTE | 2020-06-16 12:39 | PDOC ---
SURGICAL PROGRESS NOTE DATE: 06/16/20 TIME: 12:38 Subjective Patient describes lower abdominal pain has been having bowel movements but has not passed foreign body Vital Signs Vital Signs Date Time Temp Pulse Resp B/P (MAP) Pulse Ox O2 Delivery O2 Flow Rate FiO2 06/16/20 11:00 97.5 53 18 121/71 (88) 100 Room Air 97.5 I&O Intake and Output 06/16/20 07:00 Intake Total 600 ml Output Total 600 ml Balance 0 ml Intake Oral 600 ml Output Urine Total 600 ml PATIENT HAS A BOWSER: No General: Alert, Oriented X3, Cooperative, mild distress Abdomen: Normal bowel sounds, Soft, No tenderness Labs Laboratory Tests Test 06/15/20 05:00 Sodium Level 143 mmol/L (136-145) Potassium Level 3.8 mmol/L (3.5-5.1) Chloride Level 107 mmol/L (98-107) Carbon Dioxide Level 30 mmol/L (21-32) Anion Gap 6 (6-14) Blood Urea Nitrogen 6 mg/dL (8-26) Creatinine 1.3 mg/dL (0.7-1.3) Estimated GFR (Cockcroft-Gault) 61.8 Glucose Level 87 mg/dL (70-99) Calcium Level 8.3 mg/dL (8.5-10.1) Problem List Problems Medical Problems: (1) Foreign body in colon, initial encounter Status: Acute (2) Hematemesis Status: Acute Assessment/Plan Rectal foreign bodies has not passed plan exam under anesthesia with removal foreign bodies Justicifation of Admission Dx: Justifications for Admission: Justification of Admission Dx: Yes DENNIS VARELA MD Jun 16, 2020 12:39
[2020-06-16] MEDS ORDERED: fentaNYL PF VIAL 100 MCG/2 ML VIAL ONE ×3 (12:55→14:39)
[2020-06-16] MEDS ORDERED: LIDOCAINE 2% PF 5 ML VIAL. ONE (12:55)
[2020-06-16] MEDS ORDERED: PROPOFOL 10 MG/ML (20ML) VIAL. IV ONE (12:55)
[2020-06-16] MEDS ORDERED: BUPIVACAINE-EPI 0.5%-1:200000 MPF 30 ML VIAL. ONE (13:00)
[2020-06-16] MEDS ORDERED: NEOMY/BACITR/POLYMYXIN OINT PACKET. TP ONE ×2 (13:00→13:14)
[2020-06-16] MEDS ORDERED: DEXAMETHASONE SOD PHOS 4 MG/ML VIAL ONE (13:42)
[2020-06-16] MEDS ORDERED: ONDANSETRON PF 4 MG/2 ML VIAL. ONE (13:42)
--- NOTE | 2020-06-16 13:54 | PDOC4 ---
Operative Note Operative Note Date: 2019 at 1352 Preoperative diagnosis: Foreign body rectal x2 Postoperative diagnosis: Same Procedure: Exam under anesthesia with removal foreign bodies x2 Surgeon: Tristin Specimens: Foreign bodies x2 Dictation: Patient is 39-year-old gentleman who is admitted to the hospital with lower abdominal pain and a KUB showing foreign bodies within the rectum this is not his first time to be in the hospital for a similar problem. Procedure of exam under anesthesia with removal foreign bodies was explained to the patient detail all risk benefits were also discussed including bleeding infection injury to the rectum. Alternatives to this procedure also discussed with patient who seemed to understand and gave both verbal and written consent to have the procedure performed. Patient was taken to the operating room placed in the supine position general anesthesia was initiated once patient was sleeping intubated he was placed in lithotomy positioning and his perineum was prepped and draped in usual sterile fashion using Betadine solution. A speculum was placed within the rectum and examined a foreign body could be seen within the rectum using a ring forceps the foreign body was removed a second foreign body was palpated more proximal in the rectum it was also removed with a ring forceps. Patient tolerated the procedure well was awakened and extubated in operating room taken recovery in stable condition all sponge instrument needle counts listed as correct estimated blood loss 0 DENNIS VARELA MD Jun 16, 2020 13:54
[2020-06-16] MEDS ORDERED: SEVOFLURANE 16 TO 30 MINUTES. IH ONE (13:57)
[2020-06-16] MEDS: fentaNYL PF VIAL 100 MCG/2 ML VIAL IV PRN ×3 (14:16→14:41)
--- NOTE | 2020-06-16 16:53 | NUR ---
JUAN M sanderson. Spoke with RN and reviewed chart. Pt to have surgery to remove the foreign object in his anus. JUAN M completed referral to [place] with PAT. Palma from [facility] to meet with pt for psychiatric follow up at discharge. JUAN M following. Addendum: 06/17/20 at 0931 by REGAN MCGOWAN Pt will likely discharge to [facility] when stable per Minerva with [facility]. Pt transferred to JUAN M [facility] to follow.
--- NOTE | 2020-06-16 19:26 | PDOC ---
F/U PHYSCH PROG NOTE Subjective: Gentleman is seen for routine follow-up. Progress is reviewed with nursing staff. No major emotional or behavioral breakdown reported. Stating, he is feeling better after the procedure as foreign body has been extracted. He appears reassuring seeking. Denies suicidal or homicidal thoughts. Denies auditory or visual hallucinations. No evidence of kallie or hypomania. Objective: 14 point review of system is otherwise negative except for abdominal pain. Vital Signs: Vital Signs Date Time Temp Pulse Resp B/P (MAP) Pulse Ox O2 Delivery O2 Flow Rate FiO2 06/16/20 18:51 97.6 72 18 133/85 (101) 100 Room Air 97.6 06/16/20 14:16 10.0 Medications: Current Medications Medications (Trade) Dose Ordered Sig/Tess Start Time Stop Time Status Last Admin Dose Admin Bisacodyl (Dulcolax Supp) 10 mg 1X ONCE 06/12/20 11:30 06/12/20 11:31 DC 06/12/20 11:00 10 MG Bupivacaine HCl/ Epinephrine Bitart (Sensorcain-Epi 0.5%-1:212815 Mpf) 30 ml STK-MED ONCE 06/16/20 13:00 06/16/20 13:00 DC Dexamethasone Sodium Phosphate (Decadron) 4 mg STK-MED ONCE 06/16/20 13:42 06/16/20 13:42 DC Fentanyl Citrate (Fentanyl 2ml Vial) 100 mcg STK-MED ONCE 06/16/20 14:39 06/16/20 14:39 DC Glycerin (Sani-Supp Adult) 1 supp PRN DAILY PRN 06/15/20 15:15 Hydromorphone HCl (Dilaudid) 0.5 mg PRN Q10MIN PRN 06/16/20 07:00 06/17/20 06:59 Info (CONTRAST GIVEN -- Rx MONITORING) 1 each PRN DAILY PRN 06/08/20 21:45 06/10/20 21:44 DC Iohexol (Omnipaque 300 Mg/ml) 60 ml 1X ONCE 06/08/20 21:45 06/08/20 21:46 DC 06/08/20 22:30 60 ML Lidocaine HCl (Lidocaine Pf 2% Vial) 5 ml STK-MED ONCE 06/16/20 12:55 06/16/20 12:56 DC Lidocaine HCl (Xylocaine-Mpf 1% 2ml Vial) 2 ml PRN 1X PRN 06/16/20 07:00 06/17/20 06:59 Magnesium Citrate (Citroma) 296 ml DAILY 06/14/20 17:30 06/15/20 08:35 296 ML Neomycin/ Polymyxin/ Bacitracin (Triple Antibiotic Ointment) 1 pkt STK-MED ONCE 06/16/20 13:14 06/16/20 13:15 DC Ondansetron HCl (Zofran) 4 mg STK-MED ONCE 06/16/20 13:42 06/16/20 13:42 DC Pantoprazole Sodium (PROTONIX VIAL for IV PUSH) 40 mg DAILYAC 06/10/20 07:30 06/09/20 14:12 DC 06/09/20 09:42 40 MG Pantoprazole Sodium (Protonix) 40 mg 1X ONCE 06/11/20 07:00 06/11/20 07:01 DC 06/11/20 07:01 40 MG Polyethylene Glycol (miraLAX PACKET) 17 gm DAILY 06/15/20 15:30 06/15/20 16:35 17 GM Polyethylene Glycol (miraLAX Powder BULK BOTTLE) 238 gm 1X ONCE 06/12/20 11:30 06/12/20 11:31 DC 06/12/20 11:22 238 GM Propofol (Diprivan) 200 mg STK-MED ONCE 06/16/20 12:55 06/16/20 12:56 DC Ringer's Solution 1,000 ml @ 30 mls/hr Q24H 06/16/20 13:05 06/17/20 01:04 Sevoflurane (Ultane) 15 ml STK-MED ONCE 06/16/20 13:57 06/16/20 13:57 DC Sodium Chloride 1,000 ml @ 1,000 mls/hr 1X ONCE 06/08/20 21:00 06/08/20 21:59 DC 06/08/20 21:35 1,000 MLS/HR Sucralfate (Carafate) 1 gm BIDWMEALS 06/09/20 17:00 06/16/20 17:20 1 GM Tramadol HCl (Ultram) 50 mg PRN Q6HRS PRN 06/15/20 15:15 06/15/20 20:46 50 MG Physical Exam: Mental Status Exam: Young gentleman appears as a stated age Cooperative but evasive Alert and oriented Thought processes concrete Denies suicidal or homicidal thoughts. Denies auditory or visual hallucinations No abnormal perception noted Mood is relaxed Affect is constricted Impulse control is limited Insight is limited Judgment is limited Attention span and concentration fair Recent and remote memory intact Physical Exam: Refer to Physician's note. ACCOUNTANT AUDITOR: No focal deficit MSK: No EPS, TDK, or abnormal involuntary movements Diagnosis: Unspecified mood disorder Unspecified factitious disorder Unspecified anxiety disorder Assessment: Assessment: Gentleman with diffuse abdominal pain and history of foreign body in rectum has strange history and presentation. Given his evasive behavior, limited interaction devoid of details, and circumstances raise many questions including malingering, and unspecified mood disorder or factitious disorder. However, he needs a thorough evaluation to rule out any organic pathology. At this point no treatment is recommended. Collateral information from family and girlfriend would be of great help to determine or narrow down the diagnosis. He continues to be evasive and guarded with monosyllabic answers. He continues to maintain same status, guarded, evasive regarding questions. He has been to different hospitals around the area with same complaints. 06/15/2020, he continues to be guarded, resistant to psychological exploration. Denies depression and anxiety. 06/16/2020. He is post procedure, feeling relaxed after foreign body has been extracted. Complaining of his stomach pain. Aside from that from mental health standpoint he is stable . Plan: No medication is recommended. Additionally, patient thinks that he is not in need of any medication. Continue to monitor for symptoms. Requesting addiction social worker cordwood cutter to obtain collateral information. Psychoeducation provided. Supportive psychotherapy provided Plan: Patient thinks that he is not in need of any medication. Recommending supportive environment, and individual therapy to address issues. Continue to monitor for symptoms. Requesting addiction social worker cordwood cutter to obtain collateral information. Psychoeducation provided. Supportive psychotherapy provided JOHNY VALENTIN MD Jun 16, 2020 19:26
--- NOTE | 2020-06-16 22:30 | NUR ---
patient transported per w/c per [facility] staff, pt reports all of his belongings are in the green bag, which is in patient's lap.
--- NOTE | 2020-06-16 22:51 | NUR ---
received from [facility] . POC resumed
[2020-06-17] MEDS: fentaNYL PF VIAL 100 MCG/2 ML VIAL IVP PRN ×3 (00:42→08:42)
[2020-06-17 03:00] VITALS: BP 124/60
[2020-06-17] MEDS: PANTOPRAZOLE 40 MG TABLET.DR. PO SCH (04:52)
[2020-06-17 07:00] VITALS: BP 124/68
[2020-06-17] MEDS: SUCRALFATE 1 GM TABLET. PO SCH (08:40)
[2020-06-17] MEDS: MAGNESIUM CITRATE 296 ML SOLUTION. PO SCH (08:45)
[2020-06-17] MEDS: POLYETHYLENE GLYCOL 3350 17 GM PACKET. PO SCH (08:45)
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
--- NOTE | 2020-06-17 09:55 | PDOC ---
SURGICAL PROGRESS NOTE DATE: 06/17/20 TIME: 09:54 Subjective complaints of pain tolerating diet Vital Signs Vital Signs Date Time Temp Pulse Resp B/P (MAP) Pulse Ox O2 Delivery O2 Flow Rate FiO2 06/17/20 09:12 Room Air 06/17/20 07:00 97.9 64 20 124/68 (86) 96 97.9 06/16/20 14:16 10.0 I&O Intake and Output 06/17/20 07:00 Intake Total 520 ml Output Total 1450 ml Balance -930 ml IV Total 520 ml Output Urine Total 1450 ml Estimated Blood Loss 0 ml General: Alert, Oriented X3, Cooperative Abdomen: Soft, Other (ND) Problem List Problems Medical Problems: (1) Foreign body in colon, initial encounter Status: Acute (2) Hematemesis Status: Acute Assessment/Plan s/p removal rectal FB stable surgical as per [facility] Justicifation of Admission Dx: Justifications for Admission: Justification of Admission Dx: Yes NOEL FINNEGAN APRN Jun 17, 2020 09:55
[2020-06-17 11:00] VITALS: BP 132/72
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
--- NOTE | 2020-06-19 12:06 | PATHOLOGY ---
[facility] Accession Number: [id number] . 01 Material submitted: . rectum - RECTAL FOREIGN BODY . 01 Clinical history: . FOREIGN BODY IN COLON . 02 Diagnosis: Rectum, removal of foreign body (Gross Only): - Foreign body (Tums and Rolaids Rolls). (MLK:pit; 06/19/2020) P 06/19/2020 1123 Local . 02 Electronically signed: . Azul Chavez MD, Pathologist NPI- [id number] . 01 Gross description: . The specimen is received fresh, labeled "Naseem Garcia, rectal foreign body". Received is a roll of Tums measuring 5.2 cm in length by 1.7 cm in diameter as well as a roll of Rolaids measuring 6.7 cm in length by 2.0 cm in diameter. A gross photograph is taken. Sections are not submitted. (CAA; 06/17/2020) QA/[facility] 06/17/2020 1609 Local . 02 Pathologist provided ICD-10: T18.4XXA . 02 CPT . 237057 Specimen Comment: A courtesy copy of this report has been sent to [phone] Specimen Comment: Report sent to Performed at: 01 [facility] [address], [place], [place] [id number] MD Papi Feldman MD Phone: [phone] Performed at: 02 [facility] [address], [place] [id number] MD Jesus Holloway MD Phone: [phone]
== END 2020-06-17 14:10 | disposition home or self-care (01) | DRG 394 ==
LOC: ER 20:07 → ED HOLD 22:57 → 4 SOUTHEST 23:58 → 4 NORTH 06-12 18:30 → 6 SOUTH 06-13 09:55 → 4 NORTH 06-16 22:32
PROVIDERS: ADMIT Internal Medicine; ATTEND Internal Medicine
PROC: 0DCP8ZZ Extirpation of Matter from Rectum, Via Natural or Artificial Opening Endoscopic (ICD-10-PCS; principal; 2020-06-16 14:00)
DX: T18.5XXA Foreign body in anus and rectum, initial encounter (principal); K92.0 Hematemesis; T18.4XXA Foreign body in colon, initial encounter; D69.6 Thrombocytopenia, unspecified; D72.819 Decreased white blood cell count, unspecified; F39 Unspecified mood [affective] disorder; F41.9 Anxiety disorder, unspecified; K21.0 Gastro-esophageal reflux disease with esophagitis; K29.50 Unspecified chronic gastritis without bleeding; K29.80 Duodenitis without bleeding; K59.00 Constipation, unspecified; K62.89 Other specified diseases of anus and rectum; Z20.828 Contact with and (suspected) exposure to other viral communicable diseases
CPT/HCPCS: 36415; 74018; 74176; 74177; 80048; 80053; 80307; 81001; 83690; 83735; 85025; 87426; 88300; 96361; 96374; 96375; 99285; A7015; C9113; J1100; J2405; J2704; J3010; J7030; J7120; Q9967; A4461; G0378; U0003-CS

== ENCOUNTER 2020-07-15 02:07 | Inpatient (IN) | payer MEDICAID ==
[~2020-07-15] VITALS: Ht 188 cm; Wt 93.7 kg
--- NOTE | 2020-07-15 02:43 | RAD ---
Acute abdominal series with PA chest: Reason for examination: Abdominal pain. Comparison is made to previous abdominal exam dated 06/02/2020. The heart size is normal. Mediastinum is unremarkable. Lung irley are clear. No acute bony abnormalities are seen. There is no gross organomegaly. Psoas muscles are symmetric. The bowel gas pattern is nonspecific with no apparent obstruction. There continue to be 2 cylindrical filling defects measuring up to 7.3 cm in length and 1.8 cm diameter within the rectum. Phleboliths is again seen in the left pelvis. No acute bony abnormalities are seen. Postop changes are again seen at the L4-5 disc. IMPRESSION: No acute cardiopulmonary disease. Continued presence of 2 cylindrical foreign bodies in the rectum. Nonspecific nonobstructive bowel gas pattern. Electronically signed by: Deann Benavides MD (07/15/2020 2:41 AM) JUAN RAMON
[2020-07-15 03:21] LABS: BASO % 1 % (0-3); EOS # 0.1 x10^3/uL (0.0-0.7); EOS % 3 % (0-3); HEMATOCRIT 34.5 % (39.0-53.0); HEMOGLOBIN 11.9 g/dL (13.0-17.5); LYMPH # 1.2 x10^3/uL (1.0-4.8); LYMPH % 35 % (24-48); MEAN CORPUSCULAR HEMOGLOBIN 33 pg (25-35); MEAN CORPUSCULAR HGB CONC 35 g/dL (31-37); MEAN CORPUSCULAR VOLUME 95 fL (79-100); MONO # 0.4 x10^3/uL (0.0-1.1); MONO % 11 % (0-9); NEUT # 1.6 x10^3/uL (1.8-7.7); NEUT % 49 % (31-73); PLATELET COUNT 167 x10^3/uL (140-400); RED BLOOD COUNT 3.63 x10^6/uL (4.30-5.70); RED CELL DISTRIBUTION WIDTH 14.5 % (11.5-14.5); WHITE BLOOD COUNT 3.3 x10^3/uL (4.0-11.0)
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
[2020-07-15 03:28] LABS: CREATININE 1.1 mg/dL (0.7-1.3); GFR 74.9; POTASSIUM 3.7 mmol/L (3.5-5.1)
[2020-07-15 03:33] LABS: ALBUMIN 3.1 g/dL (3.4-5.0); ALBUMIN/GLOBULIN RATIO 1.1 (1.0-1.7); TOTAL BILIRUBIN 0.1 mg/dL (0.2-1.0)
[2020-07-15] MEDS ORDERED: ONDANSETRON PF 4 MG/2 ML VIAL. IV PRN (03:45)
[2020-07-15] MEDS ORDERED: MORPHINE SULFATE 2 MG/ML VIAL. IV PRN (03:45)
[2020-07-15 04:20] VITALS: BP 138/75
--- NOTE | 2020-07-15 04:30 | NUR ---
admitted from ER accompanied by staff with admission diagnosis abdominal pain and rectal foreign body patient alert and oriented no complain at this time
--- NOTE | 2020-07-15 05:00 | NUR ---
pt stated no preferred pharmacy and refused flu shot kept NPO not much information received from patient.
[2020-07-15] MEDS: fentaNYL PF VIAL 100 MCG/2 ML VIAL IV PRN ×2 (06:26→10:35)
[2020-07-15 07:00] VITALS: BP 133/72
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
[2020-07-15 11:00] VITALS: BP 141/84
[2020-07-15] MEDS ORDERED: fentaNYL PF VIAL 100 MCG/2 ML VIAL IVP PRN (11:45)
[2020-07-15] MEDS: diphenhydrAMINE 50 MG/ML VIAL IVP PRN (12:00)
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
--- NOTE | 2020-07-15 12:48 | PDOC ---
Date of Service: DATE: 07/15/20 TIME: 12:16 Subjective: Subjective: Asked to see by hospitalist for hematemesis and anemia. 39 y/o male who we've seen twice recently - recurrent admissions for "hemate mesis" (no type of bleeding ever witnessed/reported as inpt), abd pain, and foreign bodies in rectum - extended hospital stays w/ ongoing complaints and requests for pain medication. Per discussion w/ ER provider when last admitted, he is known at many ERs around the city - always presents with the same symptoms. Past workup here as listed below. Today, I entered his room and he said "I specifically asked not to see you." Has seen Dr. Petersen - consult for Dr. Pleitez this time. I explained I work for all the gastroenterologists here. I asked about symptoms that brought him to the hospital - he said "I'm not going to tell you what's going on when you already know." He refused to speak to or look at me at this point and I exited his room. Discussed w/ Dr. Deluca's med students - he told them he wasn't sure what the foreign bodies were in his rectum but they might be batteries. He also requested a specific type/dose of pain medication and gave a fake name when asked about his girlfriend. Surgery is following. Per nurse - he's upset his pain medication was decreased, has not vomited. Objective: Objective: In the past said drinks NO alcohol - then tox screen positive for alcohol in urine. Past labs: very mild normocytic anemia (stable), never elevated BUN, some leukopenia and thrombocytopenia (normal now), mildly elevated AST and ALT (normal now), viral Hep panel negative, COVID negative x 3. Previously on PPI and Carafate - I don't know if has continued these as he won't talk to me. Past psych eval: unspecified mood disorder, unspecified factitious disorder, unspecified anxiety disorder -limited interaction devoid of details -evasive and guarded with monosyllabic answers -resistant to psychological exploration -no medication is recommended, patient thinks that he is not in need of any medication Vital Signs: Vital Signs Date Time Temp Pulse Resp B/P (MAP) Pulse Ox O2 Delivery O2 Flow Rate FiO2 07/15/20 11:22 Room Air 07/15/20 11:00 97.8 71 18 141/84 (103) 94 97.8 Labs: Laboratory Tests Test 07/15/20 03:08 White Blood Count 3.3 x10^3/uL Red Blood Count 3.63 x10^6/uL Hemoglobin 11.9 g/dL Hematocrit 34.5 % Mean Corpuscular Volume 95 fL Mean Corpuscular Hemoglobin 33 pg Mean Corpuscular Hemoglobin Concent 35 g/dL Red Cell Distribution Width 14.5 % Platelet Count 167 x10^3/uL Neutrophils (%) (Auto) 49 % Lymphocytes (%) (Auto) 35 % Monocytes (%) (Auto) 11 % Eosinophils (%) (Auto) 3 % Basophils (%) (Auto) 1 % Neutrophils # (Auto) 1.6 x10^3/uL Lymphocytes # (Auto) 1.2 x10^3/uL Monocytes # (Auto) 0.4 x10^3/uL Eosinophils # (Auto) 0.1 x10^3/uL Basophils # (Auto) 0.0 x10^3/uL Sodium Level 147 mmol/L Potassium Level 3.7 mmol/L Chloride Level 112 mmol/L Carbon Dioxide Level 24 mmol/L Anion Gap 11 Blood Urea Nitrogen 20 mg/dL Creatinine 1.1 mg/dL Estimated GFR (Cockcroft-Gault) 74.9 BUN/Creatinine Ratio 18 Glucose Level 102 mg/dL Calcium Level 8.0 mg/dL Total Bilirubin 0.1 mg/dL Aspartate Amino Transf (AST/SGOT) 10 U/L Alanine Aminotransferase (ALT/SGPT) 12 U/L Alkaline Phosphatase 62 U/L Total Protein 6.0 g/dL Albumin 3.1 g/dL Albumin/Globulin Ratio 1.1 Lipase 102 U/L SARS-CoV-2 Antigen (Rapid) Negative Imaging: CT A/P 05/31 IMPRESSION: * There are 2 high density foreign bodies seen within the distal sigmoid to rectal region. There is some adjacent edema in the fat which could be from associated inflammation of the bowel but no adjacent free air is identified. 05/31 Procedure: Exam under anesthesia rigid proctoscopy with flexible sigmoidoscopy. Clinical history: . LLQ PAIN, FOREIGN BODY Diagnosis: Foreign bodies, clinically from colonoscopy (Gross only): Gross description: . The specimen is received fresh, labeled "Naseem Garcia, foreign body". Received is a roll of Tums measuring 5.0 cm in length by 1.7 cm in diameter and a roll of Rolaids measuring 6.8 cm in length by 2.0 cm in diameter. A gross photograph is taken. Sections are not submitted. EGD 05/[address] Petersen E- mild distal esophagitis G- mild gastritis without ulcer D- mild duodenitis- without ulcer No Natalia Ellis seen - no source for hematemsis seen- Plan- pantoprazole GI cocktail Material submitted: . stomach - ANTRAL GASTRITIS Clinical history: . ABDOMINAL PAIN LLQ PAIN, FOREIGN BODY Diagnosis: Gastric biopsy, antrum: - Chronic gastritis, mild. Comment: Sections of the gastric biopsy reveal gastric antral/body transition mucosa showing congestion and mild chronic inflammation. A properly controlled immunoperoxidase stain for Helicobacter is negative for Helicobacter organisms. (JPM:lety 06/02/2020) Abd X-Ray 06/02 IMPRESSION: 1. No evidence of obstruction. Correlate for mild constipation. CT A/P 06/08 Impression: 1. Two linear high density foreign bodies within the distal rectum. CT A/P 06/11 Impression: 1. There is again 2 foreign bodies in the rectum. KUB 06/15 IMPRESSION: Persistent linear foreign bodies overlying the rectum. Nonobstructive bowel gas pattern. 06/16 Procedure: Exam under anesthesia with removal foreign bodies x2 AAS 07/15 IMPRESSION: No acute cardiopulmonary disease. Continued presence of 2 cylindrical foreign bodies in the rectum. Nonspecific nonobstructive bowel gas pattern. PE: GEN: NAD - watching tv HEENT: Atraumatic, PERRL LUNGS: room air HEART: RR per chart ABD: non-distended EXTREMITY: No edema SKIN: No rashes, no jaundice NEURO/PSYCH: A & O 3, avoids eye contact A/P: Foreign bodies in rectum Psych problems Suspected alcohol overuse, drug-seeking behavior -- Unfortunately admitted again through ER for the same complaints. He declined to participate in the interview. Extensive workup here as listed above. Never witnessed bleeding and EGD negative for UGI issue. Additionally, past workup/recurrent admission at hospitals around the city for same issue. No plans/indications to repeat any GI workup, will sign off. D/w Dr. Petersen, nurse, and Dr. Deluca's med students. Justicifation of Admission Dx: Justifications for Admission: Justification of Admission Dx: Yes YAMILKA HILTON Jul 15, 2020 12:48
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
[2020-07-15 14:47] VITALS: BP 135/78
[2020-07-15] MEDS: fentaNYL PF VIAL 100 MCG/2 ML VIAL IVP PRN ×2 (15:51→20:00)
[2020-07-15 19:25] VITALS: BP 132/85
[2020-07-15 23:13] VITALS: BP 142/86
[2020-07-16] MEDS: diphenhydrAMINE 50 MG/ML VIAL IVP PRN ×2 (00:02→12:20)
[2020-07-16] MEDS: fentaNYL PF VIAL 100 MCG/2 ML VIAL IVP PRN ×4 (00:03→12:20)
--- NOTE | 2020-07-16 03:15 | NUR ---
Patient upset that IT HELP DESK ASSOCIATE woke him up to do 0300 vitals. IT HELP DESK ASSOCIATE reports patient informed her he didn't want his vitals taken and told her, "...if you want my vitals then you'll have to lift up my arm by yourself". Patient informed that vitals are taken every 4 hours as part of his hospital stay and he will need to speak with the doctor if he doesn't want them taken. Patient also asked to be kind to staff when they are trying to do their job duties.
[2020-07-16 03:20] VITALS: BP 159/93
[2020-07-16 07:00] VITALS: BP 136/82
[2020-07-16] MEDS ORDERED: fentaNYL PF VIAL 100 MCG/2 ML VIAL IV PRN (07:00)
[2020-07-16] MEDS ORDERED: MORPHINE SULFATE 2 MG/ML VIAL. IV PRN (07:00)
[2020-07-16] MEDS ORDERED: ONDANSETRON PF 4 MG/2 ML VIAL. IV PRN (07:00)
[2020-07-16] MEDS: IV RINGERS,LACTATED 1000ML 1,000 ML IV SCH ×2 (07:00→14:12)
[2020-07-16] MEDS ORDERED: HYDROmorphone 2 MG/ML VIAL IV PRN (07:00)
[2020-07-16 11:00] VITALS: BP 157/89
--- NOTE | 2020-07-16 11:08 | NUR ---
RETIREMENT CONSULTANT found small black bug crawling on patients sheet, identified as lice. Patient also itching head. Notified Dr. Deluca. Patient placed in contact isolation precautions.
[2020-07-16] MEDS ORDERED: PYRETHRINS TP ONE (11:30)
[2020-07-16] MEDS ORDERED: PIPERONYL BUTOXIDE TP ONE (11:30)
--- NOTE | 2020-07-16 11:47 | PDOC ---
[employer] PROGRESS NOTE Date of Service DOS: DATE: 07/16/20 TIME: 11:42 Chief Complaint Chief Complaint Abdominal pain, rectal foreign body. Hx of putting oreign bodies in his rectum Narcotic dependence Hx pysch issues Tobacco abuse History of Present Illness History of Present Illness 07/16/2020 Patient seen and examined in room, NAD. Louse seen on patient's pillow, specimen sent to lab. Discussed with RN, KAUSHIK. Discussed with surgery. Discussed with GI. HISTORY OF PRESENT ILLNESS: The patient is a pleasant 39-year-old male well known to my service. He has been admitted within the recent past after putting rolls of Tums in his rectum. He denies putting them in there. He thinks his girlfriend did it while he was asleep, however, we are not sure that he really has a girlfriend, we have never seen her. He claims her name is Sarah Fontana. Once again, he presents to the ER with abdominal pain. We did some imaging that was showing a couple rolls of Tums in his rectum (the CAT scan actually says 2 cylindrical foreign bodies in the rectum). The patient has a 6/10 pain. He is requesting narcotics as well. States he took some home meds to help, but that did not seem to help him at all. He tried to pass these foreign bodies, but he could not get them to pass. He even used his fingers, he states he could not get them out. Describes his pain as crampy. I discussed the case with the ER physician. We are going to admit the patient and consult General Surgery. Vitals/I&O Vitals/I&O: Vital Signs Date Time Temp Pulse Resp B/P (MAP) Pulse Ox O2 Delivery O2 Flow Rate FiO2 07/16/20 08:00 Room Air 07/16/20 07:00 97.7 56 19 136/82 (100) 98 97.7 I & O 07/15/20 07/15/20 07/16/20 15:00 23:00 07:00 Intake Total 600 ml Output Total 550 ml 850 ml Balance -550 ml -250 ml Physical Exam General: Alert, Oriented X3, No acute distress Heart: Regular rate Lungs: Clear Abdomen: Soft, No tenderness Extremities: No clubbing, No cyanosis Skin: No rashes, No breakdown Review of Systems Review of Systems: denies SOB denies N/V Assessment and Plan Assessmemt and Plan Problems Medical Problems: (1) Abdominal pain Status: Acute (2) Rectal foreign body Status: Acute Assessment: 1) Abdominal pain, rectal foreign body. 2) Hx of putting oreign bodies in his rectum. 3) Narcotic dependence. 4) Hx pysch issues. 5) Tobacco abuse. Plan: Rid shampoo and Permethrin. Continue p.r.n. Zofran, p.r.n. Benadryl, p.r.n. pain meds. Continue home meds. DVT prophylaxis. Full code. Awaiting surgery today for foreign body removal. D/C disposition pending surgical recommendation post-surgery. Comment Review of Relevant I have reviewed the following items ruddy (where applicable) has been applied. Medications: Current Medications Medications (Trade) Dose Ordered Sig/Tess Route PRN Reason Start Time Stop Time Status Last Admin Dose Admin Diphenhydramine HCl (Benadryl) 50 mg PRN Q12HR PRN IVP ITCHING 07/15/20 11:45 07/16/20 00:02 Fentanyl Citrate (Fentanyl 2ml Vial) 50 mcg PRN Q4HRS PRN IVP PAIN 07/15/20 14:45 07/16/20 08:14 Justifications for Admission Other Justification MARIELLA SAMUELS III DO Jul 16, 2020 11:47
[2020-07-16] MEDS ORDERED: ONDANSETRON PF 4 MG/2 ML VIAL. ONE (13:14)
[2020-07-16] MEDS ORDERED: LIDOCAINE 2% PF 5 ML VIAL. ONE (13:14)
[2020-07-16] MEDS ORDERED: PROPOFOL 10 MG/ML (20ML) VIAL. IV ONE (13:14)
[2020-07-16] MEDS ORDERED: DEXAMETHASONE SOD PHOS 4 MG/ML VIAL ONE (13:14)
[2020-07-16] MEDS ORDERED: ROCURONIUM 50 MG/5 ML VIAL. ONE (13:16)
[2020-07-16] MEDS ORDERED: fentaNYL PF VIAL 100 MCG/2 ML VIAL ONE ×2 (13:17→15:11)
[2020-07-16] MEDS ORDERED: SUCCINYLCHOLINE 200 MG/10 ML VIAL. ONE (13:27)
--- NOTE | 2020-07-16 14:19 | PDOC ---
SURGICAL PROGRESS NOTE DATE: 07/16/20 TIME: 14:17 Subjective 39 yo M with rectal FB TO OR for extraction. R/R/B/A d/w pt. Risks, including, but not limited to: bleeding, infection, damage to surrounding structures, risk of anesthesia, risk of colostomy. He appears to understand, his questions are answered and he elects to proceed. Vital Signs Vital Signs Date Time Temp Pulse Resp B/P (MAP) Pulse Ox O2 Delivery O2 Flow Rate FiO2 07/16/20 11:00 50 19 157/89 (111) 98 Room Air 07/16/20 07:00 97.7 97.7 I&O Intake and Output 07/16/20 07:00 Intake Total 600 ml Output Total 1400 ml Balance -800 ml Intake Oral 600 ml Output Urine Total 1400 ml # Voids 1 Labs Laboratory Tests Test 07/15/20 03:08 White Blood Count 3.3 x10^3/uL (4.0-11.0) Red Blood Count 3.63 x10^6/uL (4.30-5.70) Hemoglobin 11.9 g/dL (13.0-17.5) Hematocrit 34.5 % (39.0-53.0) Mean Corpuscular Volume 95 fL (79-100) Mean Corpuscular Hemoglobin 33 pg (25-35) Mean Corpuscular Hemoglobin Concent 35 g/dL (31-37) Red Cell Distribution Width 14.5 % (11.5-14.5) Platelet Count 167 x10^3/uL (140-400) Neutrophils (%) (Auto) 49 % (31-73) Lymphocytes (%) (Auto) 35 % (24-48) Monocytes (%) (Auto) 11 % (0-9) Eosinophils (%) (Auto) 3 % (0-3) Basophils (%) (Auto) 1 % (0-3) Neutrophils # (Auto) 1.6 x10^3/uL (1.8-7.7) Lymphocytes # (Auto) 1.2 x10^3/uL (1.0-4.8) Monocytes # (Auto) 0.4 x10^3/uL (0.0-1.1) Eosinophils # (Auto) 0.1 x10^3/uL (0.0-0.7) Basophils # (Auto) 0.0 x10^3/uL (0.0-0.2) Sodium Level 147 mmol/L (136-145) Potassium Level 3.7 mmol/L (3.5-5.1) Chloride Level 112 mmol/L (98-107) Carbon Dioxide Level 24 mmol/L (21-32) Anion Gap 11 (6-14) Blood Urea Nitrogen 20 mg/dL (8-26) Creatinine 1.1 mg/dL (0.7-1.3) Estimated GFR (Cockcroft-Gault) 74.9 BUN/Creatinine Ratio 18 (6-20) Glucose Level 102 mg/dL (70-99) Calcium Level 8.0 mg/dL (8.5-10.1) Total Bilirubin 0.1 mg/dL (0.2-1.0) Aspartate Amino Transf (AST/SGOT) 10 U/L (15-37) Alanine Aminotransferase (ALT/SGPT) 12 U/L (16-63) Alkaline Phosphatase 62 U/L (46-116) Total Protein 6.0 g/dL (6.4-8.2) Albumin 3.1 g/dL (3.4-5.0) Albumin/Globulin Ratio 1.1 (1.0-1.7) Lipase 102 U/L (73-393) Coronavirus (PCR) Not detected (Not Detected) SARS-CoV-2 Antigen (Rapid) Negative (NEGATIVE) Problem List Problems Medical Problems: (1) Abdominal pain Status: Acute (2) Rectal foreign body Status: Acute Justicifation of Admission Dx: Justifications for Admission: Justification of Admission Dx: Yes MATT HEATH MD Jul 16, 2020 14:19
[2020-07-16] MEDS: fentaNYL PF VIAL 100 MCG/2 ML VIAL IV PRN ×2 (15:12→15:22)
[2020-07-16 15:36] VITALS: BP 156/96
--- NOTE | 2020-07-16 15:59 | PDOC4 ---
OPERATIVE NOTE Date: Date: Jul 16, 2020 Pre-Op Diagnosis: Rectal foreign body Post-Op Diagnosis: same x 2 Procedure Performed: Exam under anesthesia, remove of foreign body x 2 Surgeon: Joaquim Heath Anesthesia Type: GETA Blood Loss: minimal Specimans Obtained: rectal foreign body x 2 Findings: two times rectal foreign body, no rectal injury noted Complications: none Operative Note: After obtaining informed consent, patient was taken to OR, induced under GETA and prepped in the usual fashion. Patient placed in high lithotomy position. Rectal exam revealed two foreign bodies, which were removed and sent to pathology. No evidence of rectal injury. Patient tolerated procedure well and sent to PACU in stable condition. All counts correct. MATT HEATH MD Jul 16, 2020 15:59
--- NOTE | 2020-07-16 17:45 | NUR ---
Discharge Note: SAIGE DANGELO Discharge instructions and discharge home medications reviewed with Patient and a copy given. All questions have been answered and understanding verbalized. The following instructions and handouts were given: information about follow up appointment, medications, plan of care, do another treatment of RID if necessary. Discontinued lines and drains: IV line in left AC removed, catheter tip intact. Patient discharged to home with self care, wheelchair used for mobility to discharge vehicle, cab used for drive home.
== END 2020-07-16 17:45 | disposition home or self-care (01) | DRG 395 ==
LOC: ER 02:07 → 4 NORTH 03:37
PROVIDERS: ADMIT Family Medicine; ATTEND Family Medicine
PROC: 0DCP7ZZ Extirpation of Matter from Rectum, Via Natural or Artificial Opening (ICD-10-PCS; principal; 2020-07-16 13:00)
DX: T18.5XXA Foreign body in anus and rectum, initial encounter (principal); Z83.3 Family history of diabetes mellitus; F17.200 Nicotine dependence, unspecified, uncomplicated; Z20.828 Contact with and (suspected) exposure to other viral communicable diseases; D64.9 Anemia, unspecified; Z88.8 Allergy status to other drugs, medicaments and biological substances; Z79.899 Other long term (current) drug therapy
CPT/HCPCS: 36415; 74022; 80053; 83690; 85025; 87426; 99285; A7015; J0330; J1100; J1200; J2405; J2704; J3010; J7120; A4461; G0378; U0003-CS

== ENCOUNTER 2020-07-19 14:49 | Emergency (ER) | payer MEDICAID ==
[~2020-07-19] VITALS: Ht 188 cm; Wt 90.9 kg
[2020-07-19 14:58] VITALS: BP 137/78
[2020-07-19 15:38] LABS: BASO % 1 % (0-3); EOS % 1 % (0-3); HEMATOCRIT 38.2 % (39.0-53.0); HEMOGLOBIN 12.9 g/dL (13.0-17.5); LYMPH # 1.2 x10^3/uL (1.0-4.8); LYMPH % 23 % (24-48); MEAN CORPUSCULAR HEMOGLOBIN 32 pg (25-35); MEAN CORPUSCULAR HGB CONC 34 g/dL (31-37); MEAN CORPUSCULAR VOLUME 95 fL (79-100); MONO # 0.6 x10^3/uL (0.0-1.1); MONO % 11 % (0-9); NEUT # 3.3 x10^3/uL (1.8-7.7); NEUT % 64 % (31-73); PLATELET COUNT 163 x10^3/uL (140-400); RED BLOOD COUNT 4.01 x10^6/uL (4.30-5.70); RED CELL DISTRIBUTION WIDTH 14.6 % (11.5-14.5); WHITE BLOOD COUNT 5.1 x10^3/uL (4.0-11.0)
[2020-07-19 15:43] LABS: BILIRUBIN,URINE NEGATIVE (NEG); CLARITY,URINE CLEAR; COLOR,URINE YELLOW; NITRITE,URINE NEGATIVE (NEG); PROTEIN,URINE NEGATIVE (NEG-TRACE); UROBILINOGEN,URINE 0.2 mg/dL (0.2 mg/dL)
[2020-07-19 15:55] LABS: CALCIUM 8.9 mg/dL (8.5-10.1); GFR 83.6; POTASSIUM 3.8 mmol/L (3.5-5.1)
[2020-07-19 16:01] LABS: ALBUMIN 3.8 g/dL (3.4-5.0); ALBUMIN/GLOBULIN RATIO 1.2 (1.0-1.7); MAGNESIUM 2.4 mg/dL (1.8-2.4); TOTAL BILIRUBIN 0.4 mg/dL (0.2-1.0); TOTAL PROTEIN 7.1 g/dL (6.4-8.2)
[2020-07-19 16:03] LABS: BACTERIA,URINE MANY /HPF (0-FEW); RBC,URINE RARE /HPF (0-2); WBC,URINE OCC /HPF (0-4)
--- NOTE | 2020-07-19 17:13 | RAD ---
PROCEDURE: ABDOMEN SUPINE UPRIGHT STUDY DATE: 07/19/2020 CLINICAL INDICATION / HISTORY: Reason: possible rectal FB / Spl. Instructions: / History: . TECHNIQUE: Upright PA chest, supine and decubitus films of the abdomen were obtained. COMPARISON: Obstructive series of 07/15/2020 FINDINGS: AP view the chest reveals the lungs to be clear. Cardiac and mediastinal silhouette are unremarkable. No free air is identified below the diaphragms. Supine and decubitus views of the abdomen reveal no dilated loops of bowel or air-fluid levels. 2. Cylindrical rectal foreign bodies remain present. No organomegaly is present. No destructive osseous lesions. Lower lumbar spinal disc prosthesis is redemonstrated. IMPRESSION: Two cylindrical foreign bodies remain present in the rectal vault. Electronically signed by: Brandon Wilkinson MD (07/19/2020 5:10 PM) [facility] [place]
[2020-07-19] MEDS ORDERED: fentaNYL PF VIAL 100 MCG/2 ML VIAL IV ONE (17:15)
[2020-07-19 17:45] LABS: BARBITURATES NEG (NEG); BENZODIAZEPINES NEG (NEG); CANNABINOIDS NEG (NEG); COCAINE NEG (NEG); METHADONE NEG (NEG); OPIATES NEG (NEG); PHENCYCLIDINE NEG (NEG)
[2020-07-19 17:47] LABS: AMPHETAMINE/METHAMPHETAMINE NEG (NEG)
[2020-07-19 17:47] LABS: SALIC < 2.8 mg/dL (2.8-20.0)
[2020-07-19 17:48] LABS: ACETAMIN < 2 mcg/ml (10-30)
--- NOTE | 2020-07-19 17:53 | PHYS DOC ---
Past Medical History Past Medical History: Other Additional Past Medical Histor: ESOPHAGITIS, HIATAL HERNIA Past Surgical History: Appendectomy Additional Past Surgical Histo: BACK SURGERY, KNEE SURGERY Smoking Status: Former Smoker Alcohol Use: None General Adult EDM: Chief Complaint: ABDOMINAL PAIN HPI: HPI: Patient is a 39 year old male, presents to the emergency room via EMS with complaints of diffuse abdominal pain and foreign bodies being stuck in his rectum. He denies any fever, cough, shortness of breath, back pain, nausea, vomiting, or diarrhea. The patient currently denies any blood in his stool. He reports that his girlfriend inserted the foreign bodies into his rectum. Patient has presented to this emergency room numerous times recently for the same complaint. He currently rates his pain a 9 out of 10 on pain scale, he denies any alleviating or exacerbating factors and states that the pain is constant. Review of Systems: Review of Systems: Constitutional: Denies fever or chills. [] HENT: Denies nasal congestion or sore throat. [] Respiratory: Denies cough or shortness of breath. [] Cardiovascular: Denies chest pain or edema. [] GI: See HPI : Denies dysuria, or hematuria. [] Musculoskeletal: Denies back pain or joint pain. [] Integument: Denies rash. [] Neurologic: Denies headache Complete ROS is negative unless otherwise stated in the HPI. Heart Score: Risk Factors: Risk Factors: DM, Current or recent (<one month) smoker, HTN, HLP, family history of CAD, obesity. Risk Scores: Score 0 - 3: 2.5% MACE over next 6 weeks - Discharge Home Score 4 - 6: 20.3% MACE over next 6 weeks - Admit for Clinical Observation Score 7 - 10: 72.7% MACE over next 6 weeks - Early Invasive Strategies Current Medications: Current Medications Medications (Trade) Dose Ordered Sig/Tess Start Time Stop Time Status Last Admin Dose Admin Fentanyl Citrate (Fentanyl 2ml Vial) 50 mcg 1X ONCE 07/19/20 17:15 07/19/20 17:16 DC 07/19/20 17:16 50 MCG Allergies: Allergies: Allergies Coded Allergies Type Severity Reaction Last Updated Verified ketorolac Allergy Severe hives 05/31/20 Yes morphine Allergy Severe hives 05/31/20 Yes haloperidol Allergy Intermediate 06/11/20 Yes prochlorperazine Allergy Intermediate restlessness 05/31/20 Yes Physical Exam: PE: Constitutional: Well developed, well nourished, no acute distress, non-toxic appearance. [] HENT: Normocephalic, atraumatic, bilateral external ears normal, nose normal. [] Eyes: PERRLA, EOMI, conjunctiva normal, no discharge. [] Neck: Normal range of motion, no stridor. [] Cardiovascular:Heart rate regular rhythm Lungs & Thorax: Respirations even and unlabored, no retractions, no respiratory distress Abdomen: soft, diffuse tenderness to palpation without guarding, no rebound tenderness, no distention Skin: Warm, dry, no erythema, no rash. [] Extremities: No cyanosis, ROM intact, no edema. [] Neurologic: Alert and oriented X 3, no focal deficits noted. [] Psychologic: Affect normal, judgement normal, mood normal. [] Current Patient Data: Labs: Laboratory Tests Test 07/19/20 15:00 07/19/20 15:05 Urine Collection Type Void Urine Color Yellow Urine Clarity Clear Urine pH 7.0 (<5.0-8.0) Urine Specific [place] 1.015 (1.000-1.030) Urine Protein Negative mg/dL (NEG-TRACE) Urine Glucose (UA) Negative mg/dL (NEG) Urine Ketones (Stick) Negative mg/dL (NEG) Urine Blood Negative (NEG) Urine Nitrite Negative (NEG) Urine Bilirubin Negative (NEG) Urine Urobilinogen Dipstick 0.2 mg/dL (0.2 mg/dL) Urine Leukocyte Esterase Negative (NEG) Urine RBC Rare /HPF (0-2) Urine WBC Occ /HPF (0-4) Urine Squamous Epithelial Cells Occ /LPF Urine Bacteria Many /HPF (0-FEW) Urine Opiates Screen Neg (NEG) Urine Methadone Screen Neg (NEG) Urine Barbiturates Neg (NEG) Urine Phencyclidine Screen Neg (NEG) Urine Amphetamine/Methamphetamine Neg (NEG) Urine Benzodiazepines Screen Neg (NEG) Urine Cocaine Screen Neg (NEG) Urine Cannabinoids Screen Neg (NEG) Urine Ethyl Alcohol Pos (NEG) White Blood Count 5.1 x10^3/uL (4.0-11.0) Red Blood Count 4.01 x10^6/uL (4.30-5.70) L Hemoglobin 12.9 g/dL (13.0-17.5) L Hematocrit 38.2 % (39.0-53.0) L Mean Corpuscular Volume 95 fL (79-100) Mean Corpuscular Hemoglobin 32 pg (25-35) Mean Corpuscular Hemoglobin Concent 34 g/dL (31-37) Red Cell Distribution Width 14.6 % (11.5-14.5) H Platelet Count 163 x10^3/uL (140-400) Neutrophils (%) (Auto) 64 % (31-73) Lymphocytes (%) (Auto) 23 % (24-48) L Monocytes (%) (Auto) 11 % (0-9) H Eosinophils (%) (Auto) 1 % (0-3) Basophils (%) (Auto) 1 % (0-3) Neutrophils # (Auto) 3.3 x10^3/uL (1.8-7.7) Lymphocytes # (Auto) 1.2 x10^3/uL (1.0-4.8) Monocytes # (Auto) 0.6 x10^3/uL (0.0-1.1) Eosinophils # (Auto) 0.0 x10^3/uL (0.0-0.7) Basophils # (Auto) 0.0 x10^3/uL (0.0-0.2) Sodium Level 141 mmol/L (136-145) Potassium Level 3.8 mmol/L (3.5-5.1) Chloride Level 106 mmol/L (98-107) Carbon Dioxide Level 26 mmol/L (21-32) Anion Gap 9 (6-14) Blood Urea Nitrogen 13 mg/dL (8-26) Creatinine 1.0 mg/dL (0.7-1.3) Estimated GFR (Cockcroft-Gault) 83.6 BUN/Creatinine Ratio 13 (6-20) Glucose Level 81 mg/dL (70-99) Calcium Level 8.9 mg/dL (8.5-10.1) Magnesium Level 2.4 mg/dL (1.8-2.4) Total Bilirubin 0.4 mg/dL (0.2-1.0) Aspartate Amino Transferase (AST) 21 U/L (15-37) Alanine Aminotransferase (ALT) 14 U/L (16-63) L Alkaline Phosphatase 54 U/L (46-116) Total Protein 7.1 g/dL (6.4-8.2) Albumin 3.8 g/dL (3.4-5.0) Albumin/Globulin Ratio 1.2 (1.0-1.7) Lipase 48 U/L (73-393) L Salicylates Level < 2.8 mg/dL (2.8-20.0) L Salicylate Last Dose Date Unk Salicylate Last Dose Time Unk Acetaminophen Level < 2 mcg/ml (10-30) L Acetaminophen Last Dose Date Unk Acetaminophen Last Dose Time Unk Laboratory Tests 07/19/20 15:05 Laboratory Tests 07/19/20 15:05 Vital Signs: Vital Signs Date Time Temp Pulse Resp B/P (MAP) Pulse Ox O2 Delivery O2 Flow Rate FiO2 07/19/20 17:16 18 97 07/19/20 14:58 98.9 86 137/78 (97) Room Air 98.9 EKG: EKG: [] Radiology/Procedures: Radiology/Procedures: PROCEDURE: ABDOMEN SUPINE & UPRIGHT PROCEDURE: ABDOMEN SUPINE UPRIGHT STUDY DATE: 07/19/2020 CLINICAL INDICATION / HISTORY: Reason: possible rectal FB / Spl. Instructions: / History: . TECHNIQUE: Upright PA chest, supine and decubitus films of the abdomen were obtained. COMPARISON: Obstructive series of 07/15/2020 FINDINGS: AP view the chest reveals the lungs to be clear. Cardiac and mediastinal silhouette are unremarkable. No free air is identified below the diaphragms. Supine and decubitus views of the abdomen reveal no dilated loops of bowel or air-fluid levels. 2. Cylindrical rectal foreign bodies remain present. No organomegaly is present. No destructive osseous lesions. Lower lumbar spinal disc prosthesis is redemonstrated. IMPRESSION: Two cylindrical foreign bodies remain present in the rectal vault. Electronically signed by: Brandon Wilkinson MD (07/19/2020 5:10 PM) [facility][] Course & Med Decision Making: Course & Med Decision Making Pertinent Labs and Imaging studies reviewed. (See chart for details) 39-year-old male well-known to this emergency department who presents to the emergency room with complaints of diffuse abdominal pain and rectal foreign bodies. The patient reported having blood in his stool in his vomit to nursing staff however denied any rectal bleeding to myself. Work-up included labs, an acute abdominal series, and PAT team assessment. CBC revealed a hemoglobin of 12.9, hematocrit of 38.2, otherwise unremarkable; CMP was unremarkable; UA was unremarkable; urine drug screen revealed presence of alcohol was otherwise negative. X-ray revealed two cylinder shaped foreign bodies present in the rectal vault. Patient was given a milk of molasses enema, the foreign bodies were not present in the stool after enema. 172- I spoke with Dr. Prince about the patient and his presentation to the emergency room. Per Dr. Baca the patient does not need surgery the items that are in his rectum will be expelled with normal defecation. Dr. Santiago recommends that the patient has a psychiatric evaluation. I informed him that the psychiatric assessment team has been contacted to come out and speak with the patient. Britt from the PAT assessment team came out and evaluated the patient, per Britt patient does not meet criteria for inpatient treatment. 1913-spoke with Dr. Deluca about the patient in the emergency department advised of lab results, x-ray results, and stable vital signs. I informed Dr. Deluca that the patient did not defecate to the foreign bodies after the milk of molasses enema. Per Dr. Deluca patient does not need to be admitted, I will discharge the patient home. [] Dragon Disclaimer: Dragon Disclaimer: This electronic medical record was generated, in whole or in part, using a voice recognition dictation system. Departure Departure Impression: Primary Impression: Foreign body in colon, initial encounter Disposition: HOME, SELF-CARE Condition: STABLE Referrals: NO PCP (PCP) Patient Instructions: Foreign Body-Brief Additional Instructions: STOP allowing things to enter your rectum. Follow up with your primary care doctor or one of the primary care doctors listed below in 1-2 days. Return to the ER if symptoms worsen or fever develops. JUSTIN SAUCEDO OBSTETRICIAN AND GYNAECOLOGIST Jul 19, 2020 17:52
== END 2020-07-19 19:40 | disposition home or self-care (01) ==
LOC: ER 14:49
DX: T18.4XXA Foreign body in colon, initial encounter (principal); Z87.891 Personal history of nicotine dependence; Z88.5 Allergy status to narcotic agent; Z88.6 Allergy status to analgesic agent; Z88.8 Allergy status to other drugs, medicaments and biological substances; Y93.89 Activity, other specified; X58.XXXA Exposure to other specified factors, initial encounter; Z90.89 Acquired absence of other organs; Y92.89 Other specified places as the place of occurrence of the external cause; Y99.8 Other external cause status
CPT/HCPCS: 36415; 74021; 80053; 80307; 80329; 81001; 83690; 83735; 85025; 87086; 96374; 99284; J3010; G0480

== ENCOUNTER 2020-08-01 01:37 | Inpatient (IN) | payer MEDICAID ==
[~2020-08-01] VITALS: Ht 188 cm; Wt 97.0 kg
--- NOTE | 2020-08-01 04:56 | RAD ---
EXAM: PELVIS 08/01/2020 4:01 AM CLINICAL INDICATION:Lower abdominal pain, evaluate for foreign body COMPARISON:Abdominal radiograph 07/19/2020, CT abdomen and pelvis 06/11/2020 TECHNIQUE:AP view of the pelvis FINDINGS:Two cylindrical radiopaque foreign bodies remain in the rectum. No new abnormality. Bones are unremarkable. IMPRESSION:2 cylindrical foreign bodies in the rectum. Electronically signed by: Johana Vazquez MD (08/01/2020 4:53 AM) [id number]
[2020-08-01] MEDS ORDERED: ONDANSETRON PF 4 MG/2 ML VIAL. IV PRN (05:15)
--- NOTE | 2020-08-01 05:15 | PHYS DOC ---
Past Medical History Past Medical History: Other Additional Past Medical Histor: ESOPHAGITIS, HIATAL HERNIA Past Surgical History: Appendectomy Additional Past Surgical Histo: BACK SURGERY, KNEE SURGERY Smoking Status: Former Smoker Alcohol Use: None General Adult EDM: Chief Complaint: ABDOMINAL PAIN HPI: HPI: 39 yo homeless male, well known to myself for multiple rectal foreign body insertions, presents to the ed with c/o "It never came out even after GoLYTELY and 6 enemas." Patient was referring to his recent admission to the hospital t his past month such that surgery removed a rectal foreign body on July 16. States he's having abdominal pain, nausea and vomting and "I think I'm anemia." Review of Systems: Review of Systems: Constitutional: Denies fever or chills. [] Eyes: Denies change in visual acuity. [] HENT: Denies nasal congestion or sore throat. [] Respiratory: Denies cough or shortness of breath. [] Cardiovascular: Denies chest pain or edema. [] GI: Denies diarrhea or constipation : Denies dysuria. [] Musculoskeletal: Denies back pain or joint pain. [] Integument: Denies rash. [] Neurologic: Denies headache, focal weakness or sensory changes. [] Endocrine: Denies polyuria or polydipsia. [] Lymphatic: Denies swollen glands. [] Psychiatric: Denies depression or anxiety. [] Heart Score: Risk Factors: Risk Factors: DM, Current or recent (<one month) smoker, HTN, HLP, family history of CAD, obesity. Risk Scores: Score 0 - 3: 2.5% MACE over next 6 weeks - Discharge Home Score 4 - 6: 20.3% MACE over next 6 weeks - Admit for Clinical Observation Score 7 - 10: 72.7% MACE over next 6 weeks - Early Invasive Strategies Allergies: Allergies: Allergies Coded Allergies Type Severity Reaction Last Updated Verified ketorolac Allergy Severe hives 05/31/20 Yes morphine Allergy Severe hives 05/31/20 Yes haloperidol Allergy Intermediate 06/11/20 Yes prochlorperazine Allergy Intermediate restlessness 05/31/20 Yes Physical Exam: PE: Constitutional: unkept appearacne, no acute distress, non-toxic appearance. [] HENT: Normocephalic, atraumatic, Eyes: EOMI, conjunctiva normal, no discharge. [] Neck: Normal range of motion, no tenderness, no stridor. [] Cardiovascular:Heart rate regular rhythm, no murmur [] Lungs & Thorax: Bilateral breath sounds clear to auscultation [] Abdomen: Bowel sounds normal, soft, no tenderness, no masses, no pulsatile masses. [] Skin: Warm, dry, no erythema, no rash. [] Extremities: No tenderness, no cyanosis, no clubbing, ROM intact, no edema. [] Neurologic: Alert and oriented X 3, normal motor function, normal sensory function, no focal deficits noted. []steady gait Psychologic: Affect normal, judgement normal, mood normal. [] RECTAL: Normal external rectal exam, KHOA with no stool in rectal vault, unable to palpate foreign body Current Patient Data: Vital Signs: Vital Signs Date Time Temp Pulse Resp B/P (MAP) Pulse Ox O2 Delivery O2 Flow Rate FiO2 08/01/20 03:15 98.8 98 16 112/66 (81) 97 Room Air 98.8 EKG: EKG: Sinus tachycardia 119 bpm, left axis deviation, QTC 501, poor baseline EKG, no obvious ST elevations Radiology/Procedures: Radiology/Procedures: IMAGING REPORT Signed PATIENT: JOSAFAT DANGELO ACCOUNT: [id number] : 1980 LOCATION: ER AGE: 39 SEX: M EXAM STATUS: REG ER ORD. PHYSICIAN: CYDNEY RODRIGUEZ DO REASON: lower abd pain;EVAL FOR FOREIGN BODY PROCEDURE: PELVIS EXAM: PELVIS 08/01/2020 4:01 AM CLINICAL INDICATION:Lower abdominal pain, evaluate for foreign body COMPARISON:Abdominal radiograph 07/19/2020, CT abdomen and pelvis 06/11/2020 TECHNIQUE:AP view of the pelvis FINDINGS:Two cylindrical radiopaque foreign bodies remain in the rectum. No new abnormality. Bones are unremarkable. IMPRESSION:2 cylindrical foreign bodies in the rectum. Electronically signed by: Johana Vazquez MD (08/01/2020 4:53 AM) [id number] DICTATED and SIGNED BY: JOHANA VAZQUEZ MD DATE: 08/01/20 0453 Course & Med Decision Making: Course & Med Decision Making Pertinent Labs and Imaging studies reviewed. (See chart for details) Concern for rectal foreign body, unable to manually remove. No free air on abdominal x-ray. Labs pending. Will admit to medicine with GI and surgery c onsulted. Patient stable at time of admission and agrees with this plan. I have spoken with the patient and/or caregivers. I have explained the patient's condition, diagnosis and treatment plan based on the information available to me at this time. I have answered the patient's and/or caregivers questions and answered any concerns. The patient and/or caregivers have as good an understanding of the patient's diagnosis, condition and treatment plan as can be expected at this point. The patient has been stabilized within the capability of the emergency department. The patient will be transported for further care and management or will be moved to an observation or inpatient service. I have communicated with the staff or medical practitioner taking over this patient's care. Matthew Disclaimer: Matthew Disclaimer: This electronic medical record was generated, in whole or in part, using a voice recognition dictation system. Departure Departure Impression: Primary Impression: Rectal foreign body Additional Impression: Normocytic anemia Disposition: ADMITTED INPT THIS HOSP Admitting Physician: FRANK (Dr. Hurtado) Condition: GUARDED Referrals: NO PCP (PCP) CYDNEY RODRIGUEZ DO Aug 01, 2020 05:15
[2020-08-01 05:49] LABS: CALCIUM 8.7 mg/dL (8.5-10.1); CREATININE 1.3 mg/dL (0.7-1.3); GFR 61.8; POTASSIUM 4.4 mmol/L (3.5-5.1)
[2020-08-01 05:51] LABS: BASO % 0 % (0-3); EOS % 0 % (0-3); HEMATOCRIT 33.9 % (39.0-53.0); HEMOGLOBIN 11.3 g/dL (13.0-17.5); LYMPH % 20 % (24-48); MEAN CORPUSCULAR HEMOGLOBIN 32 pg (25-35); MEAN CORPUSCULAR HGB CONC 33 g/dL (31-37); MEAN CORPUSCULAR VOLUME 95 fL (79-100); MONO # 0.6 x10^3/uL (0.0-1.1); MONO % 13 % (0-9); NEUT # 3.1 x10^3/uL (1.8-7.7); NEUT % 66 % (31-73); PLATELET COUNT 146 x10^3/uL (140-400); RED BLOOD COUNT 3.58 x10^6/uL (4.30-5.70); RED CELL DISTRIBUTION WIDTH 14.4 % (11.5-14.5); WHITE BLOOD COUNT 4.7 x10^3/uL (4.0-11.0)
[2020-08-01] MEDS ORDERED: ACETAMINOPHEN 325 MG TABLET. PO PRN (06:15)
[2020-08-01 06:28] LABS: BARBITURATES POS (NEG); BENZODIAZEPINES POS (NEG); CANNABINOIDS NEG (NEG); COCAINE NEG (NEG); METHADONE NEG (NEG); OPIATES NEG (NEG); PHENCYCLIDINE NEG (NEG)
[2020-08-01 06:32] LABS: AMPHETAMINE/METHAMPHETAMINE NEG (NEG)
[2020-08-01 07:00] VITALS: BP 139/74
[2020-08-01] MEDS ORDERED: MAGNESIUM CITRATE 296 ML SOLUTION. PO ONE (07:15)
--- NOTE | 2020-08-01 09:51 | NUR ---
Pt. upset due to not receiving pain meds. Pt. is asking for Fentanyl and Benadryl. Dr. Crow and Dr. Deluca have rounded on pt, pt refused Tylenol which was offered. Pt. upset that he currently has no new orders for pain meds at this time. Pt. arguing with RN, refusing to accept education on pain meds and the DrShar ordering them. Pt. states if he does not received meds he will "just leave".
--- NOTE | 2020-08-01 09:52 | PDOC2 ---
CONSULT Date of Consult Date of Consult DATE: 08/01/20 TIME: 09:48 Reason for Consult Reason for Consult: Foreign body of the rectum Referring Physician Referring Physician: Sandrine Identification/Chief Complaint Chief Complaint Foreign body of the rectum Source Source: Patient History of Present Illness Reason for Visit: 39-year-old male well-known to the service after repeated episodes of inserting foreign bodies in the rectum coming to the hospital to have removed has been seen at many hospitals for the same problem. He states he was here earlier this month and has done GoLYTELY and enemas and has not been able to passes foreign bodies Past Medical History Cardiovascular: No pertinent hx Pulmonary: No pertinent hx GI: No pertinent hx Heme/Onc: No pertinent hx Hepatobiliary: No pertinent hx Psych: No pertinent hx Rheumatologic: No pertinent hx Infectious disease: No pertinent hx Renal/: No pertinent hx Endocrine: No pertinent hx Past Surgical History Past Surgical History: No pertinent history Family History Family History: No Significant Social History ALCOHOL: other Lives: with Family Current Problem List Problem List Problems Medical Problems: (1) Normocytic anemia Status: Acute (2) Rectal foreign body Status: Acute Current Medications Current Medications Current Medications Ondansetron HCl (Zofran) 4 mg PRN Q8HRS PRN IV NAUSEA/VOMITING; Start 08/01/20 at 05:15; Stop 08/02/20 at 05:14 Acetaminophen (Tylenol) 650 mg PRN Q6HRS PRN PO MILD PAIN / TEMP > 100.3'F; Start 08/01/20 at 06:15 Magnesium Citrate (Citroma) 296 ml 1X ONCE PO Last administered on 08/01/20at 08:27; Start 08/01/20 at 07:15; Stop 08/01/20 at 07:16; Status DC Sodium Monofluorophosphate (Fleet Adult) 133 ml 1X ONCE CO ; Start 08/01/20 at 10:00; Stop 08/01/20 at 10:01 Sodium Monofluorophosphate (Fleet Adult) 133 ml 1X ONCE CO ; Start 08/01/20 at 11:00; Stop 08/01/20 at 11:01 Active Scripts Active Miralax (Polyethylene Glycol 3350) 17 Gm Powd.pack 1 Packet PO DAILY dissolve in water Protonix (Pantoprazole Sodium) 20 Mg Tablet.dr 1 Tab PO DAILY Allergies Allergies: Coded Allergies: ketorolac (Verified Allergy, Severe, hives, 05/31/20) morphine (Verified Allergy, Severe, hives, 05/31/20) haloperidol (Verified Allergy, Intermediate, 06/11/20) prochlorperazine (Verified Allergy, Intermediate, restlessness, 05/31/20) ROS Gastrointestinal: Yes Abdominal Pain Physical Exam General: Alert, Oriented X3, Cooperative, No acute distress HEENT: Atraumatic Lungs: Clear to auscultation, Normal air movement Heart: Regular rate, No murmurs Abdomen: Normal bowel sounds, Soft, No tenderness Extremities: No edema Skin: No significant lesion Neuro: Normal speech Vitals VITALS Vital Signs Date Time Temp Pulse Resp B/P (MAP) Pulse Ox O2 Delivery O2 Flow Rate FiO2 08/01/20 07:00 98.2 94 18 139/74 (95) 95 Room Air 98.2 Labs Labs Laboratory Tests Test 08/01/20 05:20 08/01/20 06:00 White Blood Count 4.7 x10^3/uL (4.0-11.0) Red Blood Count 3.58 x10^6/uL (4.30-5.70) Hemoglobin 11.3 g/dL (13.0-17.5) Hematocrit 33.9 % (39.0-53.0) Mean Corpuscular Volume 95 fL (79-100) Mean Corpuscular Hemoglobin 32 pg (25-35) Mean Corpuscular Hemoglobin Concent 33 g/dL (31-37) Red Cell Distribution Width 14.4 % (11.5-14.5) Platelet Count 146 x10^3/uL (140-400) Neutrophils (%) (Auto) 66 % (31-73) Lymphocytes (%) (Auto) 20 % (24-48) Monocytes (%) (Auto) 13 % (0-9) Eosinophils (%) (Auto) 0 % (0-3) Basophils (%) (Auto) 0 % (0-3) Neutrophils # (Auto) 3.1 x10^3/uL (1.8-7.7) Lymphocytes # (Auto) 1.0 x10^3/uL (1.0-4.8) Monocytes # (Auto) 0.6 x10^3/uL (0.0-1.1) Eosinophils # (Auto) 0.0 x10^3/uL (0.0-0.7) Basophils # (Auto) 0.0 x10^3/uL (0.0-0.2) Sodium Level 145 mmol/L (136-145) Potassium Level 4.4 mmol/L (3.5-5.1) Chloride Level 108 mmol/L (98-107) Carbon Dioxide Level 30 mmol/L (21-32) Anion Gap 7 (6-14) Blood Urea Nitrogen 20 mg/dL (8-26) Creatinine 1.3 mg/dL (0.7-1.3) Estimated GFR (Cockcroft-Gault) 61.8 Glucose Level 122 mg/dL (70-99) Calcium Level 8.7 mg/dL (8.5-10.1) Urine Opiates Screen Neg (NEG) Urine Methadone Screen Neg (NEG) Urine Barbiturates Pos (NEG) Urine Phencyclidine Screen Neg (NEG) Urine Amphetamine/Methamphetamine Neg (NEG) Urine Benzodiazepines Screen Pos (NEG) Urine Cocaine Screen Neg (NEG) Urine Cannabinoids Screen Neg (NEG) Urine Ethyl Alcohol Neg (NEG) Laboratory Tests Test 08/01/20 05:20 08/01/20 06:00 White Blood Count 4.7 x10^3/uL (4.0-11.0) Red Blood Count 3.58 x10^6/uL (4.30-5.70) Hemoglobin 11.3 g/dL (13.0-17.5) Hematocrit 33.9 % (39.0-53.0) Mean Corpuscular Volume 95 fL (79-100) Mean Corpuscular Hemoglobin 32 pg (25-35) Mean Corpuscular Hemoglobin Concent 33 g/dL (31-37) Red Cell Distribution Width 14.4 % (11.5-14.5) Platelet Count 146 x10^3/uL (140-400) Neutrophils (%) (Auto) 66 % (31-73) Lymphocytes (%) (Auto) 20 % (24-48) Monocytes (%) (Auto) 13 % (0-9) Eosinophils (%) (Auto) 0 % (0-3) Basophils (%) (Auto) 0 % (0-3) Neutrophils # (Auto) 3.1 x10^3/uL (1.8-7.7) Lymphocytes # (Auto) 1.0 x10^3/uL (1.0-4.8) Monocytes # (Auto) 0.6 x10^3/uL (0.0-1.1) Eosinophils # (Auto) 0.0 x10^3/uL (0.0-0.7) Basophils # (Auto) 0.0 x10^3/uL (0.0-0.2) Sodium Level 145 mmol/L (136-145) Potassium Level 4.4 mmol/L (3.5-5.1) Chloride Level 108 mmol/L (98-107) Carbon Dioxide Level 30 mmol/L (21-32) Anion Gap 7 (6-14) Blood Urea Nitrogen 20 mg/dL (8-26) Creatinine 1.3 mg/dL (0.7-1.3) Estimated GFR (Cockcroft-Gault) 61.8 Glucose Level 122 mg/dL (70-99) Calcium Level 8.7 mg/dL (8.5-10.1) Urine Opiates Screen Neg (NEG) Urine Methadone Screen Neg (NEG) Urine Barbiturates Pos (NEG) Urine Phencyclidine Screen Neg (NEG) Urine Amphetamine/Methamphetamine Neg (NEG) Urine Benzodiazepines Screen Pos (NEG) Urine Cocaine Screen Neg (NEG) Urine Cannabinoids Screen Neg (NEG) Urine Ethyl Alcohol Neg (NEG) Images Images KUB shows 2 cylindrical foreign bodies within the rectum no free air no evidence of obstruction Assessment/Plan Assessment/Plan Foreign bodies of the rectum without evidence of complications Recommend bottle of magnesium citrate and fleets enemas Patient has been hospitalized frequently for same problem at multiple hospitals concern for drug-seeking behavior He has had psychiatric consultations in the past DENNIS VARELA MD Aug 01, 2020 09:52
[2020-08-01] MEDS ORDERED: SODIUM PHOSPHATES 19/7GM 133 ML ENEMA. PR ONE ×2 (10:00→11:00)
--- NOTE | 2020-08-01 10:05 | NUR ---
Pt. requesting the charge nurse, still upset re: pain med orders. Pt. educated that orders are not yet available. Pt. asking RN to call to hurry up and put in orders. Pt. educated to process of DrShar ordering meds, reinforcement needed as pt asked the same question multiple ways. Pt. also asking Dr. Crow to use anesthesia for pending procedure. Pt. informed of how procedures are performed are at the discretion of the ordering the procedure. Dr. Sandrine mcfarland per pt request to put in pain meds. Addendum: 08/01/20 at 1024 by ANDREW MARTINEZ RN Pt. also refusing VS.
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
--- NOTE | 2020-08-01 17:55 | NUR ---
Dr. Deluca paged again per patient request for pain and diet. Fentanyl 25 mcg IV push Q3 for pain and Regular diet ordered
[2020-08-01 19:00] VITALS: BP 118/64
[2020-08-01] MEDS: fentaNYL PF VIAL 100 MCG/2 ML VIAL IVP PRN ×2 (19:41→23:46)
[2020-08-01 23:00] VITALS: BP 138/85
[2020-08-02] MEDS: fentaNYL PF VIAL 100 MCG/2 ML VIAL IVP PRN ×3 (04:03→13:23)
[2020-08-02 04:08] VITALS: BP 114/77
[2020-08-02 08:30] VITALS: BP 134/85
--- NOTE | 2020-08-02 09:04 | PDOC ---
Provider Note Date of Service: DATE: 08/02/20 TIME: 09:03 Provider Note Patient with small foreign bodies in the rectum no evidence of obstruction. Object will pass without intervention would recommend daily MiraLAX. No plans for surgical intervention okay to discharge from surgical standpoint Justifications for Admission Other Justification DENNIS VARELA MD Aug 02, 2020 09:04
[2020-08-02 11:35] VITALS: BP 124/71
--- NOTE | 2020-08-02 12:40 | PDOC ---
[employer] PROGRESS NOTE Date of Service DOS: DATE: 08/02/20 TIME: 12:34 Chief Complaint Chief Complaint Rectal foreign body Normocytic anemia History of Present Illness History of Present Illness 08/02/2020 Pt seen and examined DW RN Vitals/I&O Vitals/I&O: Vital Signs Date Time Temp Pulse Resp B/P (MAP) Pulse Ox O2 Delivery O2 Flow Rate FiO2 08/02/20 11:35 97.8 73 18 124/71 (88) 98 Room Air 97.8 I & O 08/01/20 08/01/20 08/02/20 15:00 23:00 07:00 Intake Total 0 ml 0 ml 200 ml Output Total 1100 ml Balance 0 ml 0 ml -900 ml Physical Exam General: Alert, Oriented X3, Cooperative, No acute distress Heart: Regular rate, No murmurs Lungs: Clear Abdomen: Normal bowel sounds, Soft, No tenderness Extremities: No edema Skin: No significant lesion Review of Systems Review of Systems: No signs of SOB, digital clubbing, or cyanosis. Assessment and Plan Assessmemt and Plan Problems Medical Problems: (1) Normocytic anemia Status: Acute (2) Rectal foreign body Status: Acute Plan: Probable Flexible sigmoidoscopy today Treatment for lice DVT prophylaxis Pain meds prn Full code Comment Review of Relevant I have reviewed the following items ruddy (where applicable) has been applied. Medications: Current Medications Medications (Trade) Dose Ordered Sig/Tess Route PRN Reason Start Time Stop Time Status Last Admin Dose Admin Fentanyl Citrate (Fentanyl 2ml Vial) 25 mcg PRN Q3HRS PRN IVP PAIN 08/01/20 18:45 08/02/20 04:43 DC 08/02/20 04:03 Fentanyl Citrate (Fentanyl 2ml Vial) 25 mcg PRN Q4HRS PRN IVP PAIN 08/02/20 04:45 08/02/20 08:29 Justifications for Admission Other Justification MARIELLA SAMUELS III DO Aug 02, 2020 12:40
--- NOTE | 2020-08-02 13:53 | NUR ---
Dr. lama paged re: possible d/c today. Pt. able to d/c per Dr. Crow. Addendum: 08/02/20 at 1355 by ANDREW MARTINEZ RN Dr. Lama was paged at [phone]
--- NOTE | 2020-08-02 13:55 | NUR ---
Dr. Deluca returned call, telephone orders received.
--- NOTE | 2020-08-02 16:55 | NUR ---
Patient discharged today and stated understanding discharge instruction. Patient left via cab and disposed discharge paperwork
== END 2020-08-02 16:50 | disposition home or self-care (01) | DRG 395 ==
LOC: ER 01:37 → 4 NORTH 05:43
PROVIDERS: ADMIT Internal Medicine; ATTEND Internal Medicine
DX: T18.5XXA Foreign body in anus and rectum, initial encounter (principal); Z59.0 Homelessness; D64.9 Anemia, unspecified; Z83.3 Family history of diabetes mellitus; Z87.891 Personal history of nicotine dependence; Z90.49 Acquired absence of other specified parts of digestive tract; Z88.8 Allergy status to other drugs, medicaments and biological substances; X58.XXXA Exposure to other specified factors, initial encounter; Y93.89 Activity, other specified; Y92.89 Other specified places as the place of occurrence of the external cause; Y99.8 Other external cause status
CPT/HCPCS: 36415; 72170; 80048; 80307; 85025; 99285; J3010; G0378

== ENCOUNTER 2020-08-22 03:14 | Inpatient (IN) | payer MEDICAID ==
[~2020-08-22] VITALS: Ht 188 cm; Wt 96.0 kg
[2020-08-22 03:10] VITALS: BP 135/81
--- NOTE | 2020-08-22 03:10 | NUR ---
Patient admitted from [facility] ER via ambulance cart to room 418. Admitting diagnosis: abdominal pain, foreign body in rectum. Patient states he was here 2 weeks ago for the same GI issue and was sent home on laxatives to hopefully dislodge the foreign body in his rectum. He stated that the [facility] did not work and now he is having increased abdominal pain, tarry stool and vomited twice yesterday with blood present. Patient has multiple allergies and that are listed above. Patient has had several admissions for the same GI issue. Patient is alert and oriented x4. Patient is requesting specific pain medication( IV fentanyl ) and IV benadryl for itching. Dr. Gr called and admission orders received. Patient is anxious and evasive with giving medical information history. Patient lives in [place], [place]. Will continue to monitor patient status. Consult with Dr. Peter Dunaway will be called to answering service.
[2020-08-22] MEDS ORDERED: ONDANSETRON PF 4 MG/2 ML VIAL. IVP PRN (04:00)
[2020-08-22] MEDS: diphenhydrAMINE 50 MG/ML VIAL IVP PRN ×3 (04:27→17:35)
[2020-08-22] MEDS: fentaNYL PF VIAL 100 MCG/2 ML VIAL IVP PRN ×5 (04:29→22:26)
[2020-08-22] MEDS: IV NORMAL SALINE 1000ML BAG 1,000 ML IV SCH ×3 (04:30→15:13)
[2020-08-22 07:00] VITALS: BP 123/79
[2020-08-22 07:11] LABS: BASO % 1 % (0-3); EOS # 0.1 x10^3/uL (0.0-0.7); EOS % 2 % (0-3); HEMATOCRIT 30.1 % (39.0-53.0); HEMOGLOBIN 10.2 g/dL (13.0-17.5); LYMPH # 1.2 x10^3/uL (1.0-4.8); LYMPH % 38 % (24-48); MEAN CORPUSCULAR HEMOGLOBIN 32 pg (25-35); MEAN CORPUSCULAR HGB CONC 34 g/dL (31-37); MEAN CORPUSCULAR VOLUME 93 fL (79-100); MONO # 0.4 x10^3/uL (0.0-1.1); MONO % 11 % (0-9); NEUT # 1.5 x10^3/uL (1.8-7.7); NEUT % 48 % (31-73); PLATELET COUNT 132 x10^3/uL (140-400); RED BLOOD COUNT 3.23 x10^6/uL (4.30-5.70); RED CELL DISTRIBUTION WIDTH 14.4 % (11.5-14.5); WHITE BLOOD COUNT 3.2 x10^3/uL (4.0-11.0)
[2020-08-22 07:51] LABS: ALBUMIN 2.7 g/dL (3.4-5.0); CALCIUM 8.1 mg/dL (8.5-10.1); CREATININE 1.1 mg/dL (0.7-1.3); GFR 74.9; POTASSIUM 3.9 mmol/L (3.5-5.1); TOTAL BILIRUBIN 0.1 mg/dL (0.2-1.0); TOTAL PROTEIN 5.4 g/dL (6.4-8.2)
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
[2020-08-22 11:00] VITALS: BP 128/82
--- NOTE | 2020-08-22 14:29 | PDOC2 ---
CONSULT Date of Consult Date of Consult DATE: 08/22/20 TIME: 14:21 Reason for Consult Reason for Consult: Recurrent abdominal pain, recurrent foreign bodies in his rectum History of Present Illness Reason for Visit: This is a 39-year-old gentleman who we have seen on numerous occasions in the past. His history and story are consistently repeating and have been thoroughly evaluated in the past. He describes periumbilical abdominal pain with nausea vomiting and hematemesis even with black stools but not only on this occasion but no other occasion is that ever been documented. In fact he had an upper endoscopy acutely when I saw him back in May to address the symptoms and it was completely normal. The only abnormalities at that time in the labs was a slight elevation in his transaminases which quickly resolved and imaging did not reveal any acute issues. We felt that it was probably alcohol related at that time and on this occasion his liver function studies are completely normal. The other issue is the recurrent nature of rolls of Rolaids in his rectum. He gives a mixed history this time as to the fact that they were were removed and replaced by his girlfriend. He was seen a couple of weeks ago and told to take MiraLAX but he said he never passed them. However there is a mixed message from the original emergency room evaluation where he said they were put in a few hours ago by his girlfriend again. He states now that he has a restraining order against his girlfriend who continues to do this. As it turns out he has been to numerous other hospitals with the same complaints including [place] and [place]. Although I do not have all of those records apparently in each case the work-up is essentially negative and the foreign bodies were removed. Past Medical History Cardiovascular: No pertinent hx Pulmonary: No pertinent hx GI: No pertinent hx Heme/Onc: No pertinent hx Hepatobiliary: No pertinent hx Psych: No pertinent hx, Other (Some sort of disorder resulting in these recurrent foreign bodies in his rectum) Rheumatologic: No pertinent hx Infectious disease: No pertinent hx Renal/: No pertinent hx Endocrine: No pertinent hx Past Surgical History Past Surgical History: Other (No history is reported but there is an small incision below his umbilicus midline he cannot give a good history of this), No pertinent history Family History Family History: No Significant Social History ALCOHOL: other Lives: with Family Current Medications Current Medications Current Medications Sodium Chloride 1,000 ml @ 100 mls/hr Q10H IV Last administered on 08/22/20at 04:30; Start 08/22/20 at 04:00 Diphenhydramine HCl (Benadryl) 50 mg PRN Q6HRS PRN IVP ITCHING Last administered on 08/22/20at 10:39; Start 08/22/20 at 04:00 Fentanyl Citrate (Fentanyl 2ml Vial) 50 mcg PRN Q4HRS PRN IVP SEVERE PAIN 7-10 Last administered on 08/22/20at 13:13; Start 08/22/20 at 04:00 Ondansetron HCl (Zofran) 4 mg PRN Q6HRS PRN IVP NAUSEA/VOMITING 1ST CHOICE; Start 08/22/20 at 04:00 Active Scripts Active Reported [none] Allergies Allergies: Coded Allergies: ketorolac (Verified Allergy, Severe, hives, 05/31/20) morphine (Verified Allergy, Severe, hives, 05/31/20) haloperidol (Verified Allergy, Intermediate, 06/11/20) ketamine (Verified Allergy, Intermediate, Hives, 08/22/20) prochlorperazine (Verified Allergy, Intermediate, restlessness, 05/31/20) promethazine (Verified Allergy, Intermediate, Hives, 08/22/20) metoclopramide (Verified Allergy, Mild, Hives, 08/22/20) Physical Exam General: Alert, Oriented X3 HEENT: Atraumatic Lungs: Clear to auscultation Heart: Regular rate, Normal S1, Normal S2 Abdomen: Normal bowel sounds, Soft, No hepatosplenomegaly, No masses, Other (Subjective tenderness in the mid abdomen. Also a Steri-Strip in his right abdomen but no obvious incision) Extremities: No clubbing, No cyanosis Psych/Mental Status: Mental status NL Vitals VITALS Vital Signs Date Time Temp Pulse Resp B/P (MAP) Pulse Ox O2 Delivery O2 Flow Rate FiO2 08/22/20 13:13 96 Room Air 08/22/20 11:00 97.6 61 18 128/82 (97) 97.6 Labs Labs Laboratory Tests Test 08/22/20 06:30 White Blood Count 3.2 x10^3/uL (4.0-11.0) Red Blood Count 3.23 x10^6/uL (4.30-5.70) Hemoglobin 10.2 g/dL (13.0-17.5) Hematocrit 30.1 % (39.0-53.0) Mean Corpuscular Volume 93 fL (79-100) Mean Corpuscular Hemoglobin 32 pg (25-35) Mean Corpuscular Hemoglobin Concent 34 g/dL (31-37) Red Cell Distribution Width 14.4 % (11.5-14.5) Platelet Count 132 x10^3/uL (140-400) Neutrophils (%) (Auto) 48 % (31-73) Lymphocytes (%) (Auto) 38 % (24-48) Monocytes (%) (Auto) 11 % (0-9) Eosinophils (%) (Auto) 2 % (0-3) Basophils (%) (Auto) 1 % (0-3) Neutrophils # (Auto) 1.5 x10^3/uL (1.8-7.7) Lymphocytes # (Auto) 1.2 x10^3/uL (1.0-4.8) Monocytes # (Auto) 0.4 x10^3/uL (0.0-1.1) Eosinophils # (Auto) 0.1 x10^3/uL (0.0-0.7) Basophils # (Auto) 0.0 x10^3/uL (0.0-0.2) Prothrombin Time 12.0 SEC (11.7-14.0) Prothromb Time International Ratio 0.9 (0.8-1.1) Activated Partial Thromboplast Time 25 SEC (24-38) Sodium Level 145 mmol/L (136-145) Potassium Level 3.9 mmol/L (3.5-5.1) Chloride Level 109 mmol/L (98-107) Carbon Dioxide Level 29 mmol/L (21-32) Anion Gap 7 (6-14) Blood Urea Nitrogen 16 mg/dL (8-26) Creatinine 1.1 mg/dL (0.7-1.3) Estimated GFR (Cockcroft-Gault) 74.9 BUN/Creatinine Ratio 15 (6-20) Glucose Level 88 mg/dL (70-99) Calcium Level 8.1 mg/dL (8.5-10.1) Total Bilirubin 0.1 mg/dL (0.2-1.0) Aspartate Amino Transf (AST/SGOT) 17 U/L (15-37) Alanine Aminotransferase (ALT/SGPT) 20 U/L (16-63) Alkaline Phosphatase 56 U/L (46-116) Total Protein 5.4 g/dL (6.4-8.2) Albumin 2.7 g/dL (3.4-5.0) Albumin/Globulin Ratio 1.0 (1.0-1.7) Laboratory Tests Test 08/22/20 06:30 White Blood Count 3.2 x10^3/uL (4.0-11.0) Red Blood Count 3.23 x10^6/uL (4.30-5.70) Hemoglobin 10.2 g/dL (13.0-17.5) Hematocrit 30.1 % (39.0-53.0) Mean Corpuscular Volume 93 fL (79-100) Mean Corpuscular Hemoglobin 32 pg (25-35) Mean Corpuscular Hemoglobin Concent 34 g/dL (31-37) Red Cell Distribution Width 14.4 % (11.5-14.5) Platelet Count 132 x10^3/uL (140-400) Neutrophils (%) (Auto) 48 % (31-73) Lymphocytes (%) (Auto) 38 % (24-48) Monocytes (%) (Auto) 11 % (0-9) Eosinophils (%) (Auto) 2 % (0-3) Basophils (%) (Auto) 1 % (0-3) Neutrophils # (Auto) 1.5 x10^3/uL (1.8-7.7) Lymphocytes # (Auto) 1.2 x10^3/uL (1.0-4.8) Monocytes # (Auto) 0.4 x10^3/uL (0.0-1.1) Eosinophils # (Auto) 0.1 x10^3/uL (0.0-0.7) Basophils # (Auto) 0.0 x10^3/uL (0.0-0.2) Prothrombin Time 12.0 SEC (11.7-14.0) Prothromb Time International Ratio 0.9 (0.8-1.1) Activated Partial Thromboplast Time 25 SEC (24-38) Sodium Level 145 mmol/L (136-145) Potassium Level 3.9 mmol/L (3.5-5.1) Chloride Level 109 mmol/L (98-107) Carbon Dioxide Level 29 mmol/L (21-32) Anion Gap 7 (6-14) Blood Urea Nitrogen 16 mg/dL (8-26) Creatinine 1.1 mg/dL (0.7-1.3) Estimated GFR (Cockcroft-Gault) 74.9 BUN/Creatinine Ratio 15 (6-20) Glucose Level 88 mg/dL (70-99) Calcium Level 8.1 mg/dL (8.5-10.1) Total Bilirubin 0.1 mg/dL (0.2-1.0) Aspartate Amino Transf (AST/SGOT) 17 U/L (15-37) Alanine Aminotransferase (ALT/SGPT) 20 U/L (16-63) Alkaline Phosphatase 56 U/L (46-116) Total Protein 5.4 g/dL (6.4-8.2) Albumin 2.7 g/dL (3.4-5.0) Albumin/Globulin Ratio 1.0 (1.0-1.7) Images Images KUB at [facility] shows the 2 cylindrical foreign bodies in his rectum consistent with Rolaids as he has had before Assessment/Plan Assessment/Plan 1. Recurrent history of abdominal pain vomiting and hematemesis. Although his hemoglobin is slightly lower than it was on his last admission there is no objective evidence for GI bleeding. In fact he has had an EGD and we monitor his labs closely. His BUN has been normal suggesting very little if any upper GI bleeding. CT scan done on his original admission showed no evidence for inflammation in the GI tract although he did have some slight elevation in his liver function tests initially they have not been duplicated and were probably related to alcohol ingestion although we do not have clear record of that. Curiously he wants me to validate him continuing to get fentanyl narcotics for his "abdominal pain". It seems he gets that when he comes here each time which is likely a reinforced behavior.-I am not recommending any additional testing including endoscopic studies. A CT scan of his abdomen could be done if his pain continues and we are concerned about new findings other than those that have been evaluated before but I would not recommend that at this time 2. Foreign bodies in his rectum. This is a long and recurrent history. He states his girlfriend puts him in while he sleeping. It is really hard to justify these numerous admissions based on these benign objects in his rectum. I will defer to surgery regarding any intervention. I do think a conservative approach with laxative such as MiraLAX output and outpatient monitoring is more appropriate than a further admission. As before I think a psych consultation is warranted. Dr. Dunaway will assume his GI care on Monday. I will add MiraLAX laxatives and a liquid diet to his regimen. I would suggest decrease use of narcotics since I think they are reinforcing his behavior DRE MONTAÑO MD Aug 22, 2020 14:29
[2020-08-22] MEDS ORDERED: POLYETHYLENE GLYCOL 3350 BTL 238 GM POWDER PO ONE (14:30)
[2020-08-22 15:00] VITALS: BP 131/83
[2020-08-22 19:00] VITALS: BP 135/85
--- NOTE | 2020-08-22 19:37 | NUR ---
Patient has requested with each dose of IV fentanyl and IV benadryl to have them "fast pushed" for more effectiveness. This nurse explained to patient that fast pushing those medications was not safe or more effective and per pharmacy administration directions were to be given over 2-3 minutes. Patient stated he did not care if the effect was him being unconscious and that he would prefer that anyway. Patient educated on safety of medications; medications given slow push per pharmacy instructions. Patient calls 10-15 minutes before PRN medication available to remind nurse it is almost time for PRN medication. Always states 9/10 abdominal pain with no physical signs or symptoms of distress.
[2020-08-22 23:00] VITALS: BP 129/77
[2020-08-23] MEDS: diphenhydrAMINE 50 MG/ML VIAL IVP PRN (00:34)
[2020-08-23] MEDS: IV NORMAL SALINE 1000ML BAG 1,000 ML IV SCH ×3 (00:34→20:40)
[2020-08-23] MEDS: fentaNYL PF VIAL 100 MCG/2 ML VIAL IVP PRN ×2 (02:28→07:13)
[2020-08-23 03:00] VITALS: BP 128/81
[2020-08-23 07:00] VITALS: BP 128/78
--- NOTE | 2020-08-23 08:25 | PN ---
DATE: 08/23/2020 SUBJECTIVE: The patient is complaining of extreme pain that is out of proportion to where his foreign bodies are in his rectum and is asking for fentanyl and Phenergan to be pushed quickly and flushed immediately. Nursing staff said that he was noncompliant with his recommendation by the plant engineering manager. PHYSICAL EXAMINATION: GENERAL: When I examined him this morning, he looked well. He was in no apparent respiratory distress. No pallor, jaundice, cyanosis or thyromegaly. No jugular venous distention. No limb edema. VITAL SIGNS: His heart rate was 58, blood pressure was 128/81, temperature was 98, respiratory rate was 18 and oxygen saturation was 96%. HEAD, EYES, EARS, NOSE AND THROAT: Showed normocephalic, atraumatic. NECK: Supple. HEART: Showed normal first and second sound. CHEST: Clear to auscultation. ABDOMEN: Extremely according to him tender, mostly in epigastric area while his foreign bodies in his rectum. NEUROLOGIC: He is grossly intact. LABORATORY DATA: His lab works are all stable. PLAN: I explained to him that he is not going to get anything for pain. He has follow with the Gastroenterology instructions, recommendation. Otherwise, he can go home. JINA HOLLAND MD DR: RONY/jcarlos JOB#: [id number] / [id number]
[2020-08-23 10:38] LABS: HEMOGLOBIN 10.5 g/dL (13.0-17.5); RED BLOOD COUNT 3.4 x10^6/uL (4.30-5.70); RED CELL DISTRIBUTION WIDTH 14.5 % (11.5-14.5); WHITE BLOOD COUNT 2.7 x10^3/uL (4.0-11.0)
[2020-08-23 10:57] LABS: ALBUMIN 2.8 g/dL (3.4-5.0); CREATININE 0.9 mg/dL (0.7-1.3); GFR 94.4; POTASSIUM 4.2 mmol/L (3.5-5.1); TOTAL BILIRUBIN 0.1 mg/dL (0.2-1.0); TOTAL PROTEIN 5.5 g/dL (6.4-8.2)
[2020-08-23 11:00] VITALS: BP 124/71
[2020-08-23 15:00] VITALS: BP 139/83
[2020-08-23 19:00] VITALS: BP 132/80
[2020-08-23 23:00] VITALS: BP 127/74
[2020-08-24 03:06] VITALS: BP 119/68
[2020-08-24] MEDS: IV NORMAL SALINE 1000ML BAG 1,000 ML IV SCH ×2 (05:57→16:00)
[2020-08-24 07:00] VITALS: BP 118/77
--- NOTE | 2020-08-24 09:46 | NUR ---
SW following. Discussed with RN, pt from home, room air, regular diet. Per physician documentation - some concern of drug seeking behaviors. Pt frequently admitted for foreign body in rectum, which he usually states his girlfriend does this to him when he is sleeping - pt now apparently has a restraining order against his girlfriend. Per RN, Dr Gr advising if CT scan is clear, pt can discharge home with self care. SW will continue to follow. Addendum: 08/24/20 at 1449 by DEBI MCGOWAN JUAN M met with pt at [facility] station regarding transportation home and that [facility] did not collect a prior patient for 2 days, and the option (after speaking with director, Jimy Mendoza) is to discharge pt to a homeless retirement, and pt can contact [facility] to arrange transportation back home. Pt stated he cannot go to a homeless retirement, as he is not homeless, JUAN M advised technically he would be considered homeless. Pt continue to repeat he cannot go to a homeless retirement, and needs to get home to [place] and that [facility] always comes to get him. JUAN M queried how pt go to the hospital, pt replied via EMS, SW queried if this had been all the way from [place], [place] to [facility]. Pt reported "no, it's a long story." Jimy Mendoza spoke with pt regarding transportation, pt reported he had been staying with a friend who lives near the [address]. JUAN M will continue to follow.
[2020-08-24 11:00] VITALS: BP 134/90
--- NOTE | 2020-08-24 11:07 | RAD ---
CT of the abdomen and pelvis without contrast. 08/24/2020 8:29 AM Indication: Foreign body in the rectum. Multiple prior imaging studies for same indication noted./ Spl. Instructions: / History: Comparison Study: Pelvic radiograph August 01, 2020.. Technique: Multidetector CT imaging of the abdomen pelvis is obtained without administration of contrast. Findings: 2 radiopaque foreign bodies are noted within the rectum, similar to comparison studies. These appear to be the same, or similar objects are previously seen objects. The rectum is mildly distended with gas. No definitive wall thickening is seen. Postoperative changes to the cecum noted. Postoperative changes of the lumbosacral spine noted. Otherwise solid and hollow viscera of the abdomen are remarkable. No free air or significant free fluid is seen in the abdomen or pelvis. As well as lung bases are unremarkable. No acute osseous changes are identified. IMPRESSION: 2 radiopaque foreign bodies within the rectum, similar in appearance to prior studies CT DOSING PQRS STATEMENT: One or more of the following individualized dose reduction techniques were utilized for this examination: 1. Automated exposure control 2. Adjustment of the mA and/or kV according to patient size 3. Use of iterative reconstruction technique Electronically signed by: Venkata Hall MD (08/24/2020 11:04 AM) [id number]
[2020-08-24] MEDS ORDERED: POLY17PO29 PO (12:56)
--- NOTE | 2020-08-24 14:43 | NUR ---
Spoke with pt in argueta as well as at bedside. Pt aware of discharge orders and requesting assistance with a ride home to [place], [place]. Called [facility] through pt's insurance at [phone]. Pt has been set up with a ride some time between 1430 and 1730 today. Confirmation #[id number]. I explained to pt that we have been having some difficulty with [facility] lately not picking up their pts as requested. Because of this difficulty I further explained to pt that if they do not show up by 1730 as confirmed we would call for a cab to transport pt back to a friends house here in [facility]. Pt aware and agreeable to these plans. Pt's RN Teetee also aware and will assist with a cab pass if needed.
--- NOTE | 2020-08-24 19:03 | NUR ---
Discharge Note: SAIGE DANGELO Discharge instructions and discharge home medications reviewed with Patient and a copy given. All questions have been answered and understanding verbalized. The following instructions and handouts were given: information about follow up, medications, plan of care, etc. Discontinued lines and drains: IV line in right AC removed, catheter tip intact. Patient discharged to [facility] in [place], [place] with cdl flatbed truck driver/cab.
== END 2020-08-24 19:06 | disposition home or self-care (01) | DRG 394 ==
LOC: UNDOADMIN 03:14 → 4 NORTH 03:14
PROVIDERS: ADMIT Internal Medicine; ATTEND Internal Medicine
DX: T18.5XXA Foreign body in anus and rectum, initial encounter (principal); K92.0 Hematemesis; F17.210 Nicotine dependence, cigarettes, uncomplicated; Z91.19 Patient's noncompliance with other medical treatment and regimen; Z88.5 Allergy status to narcotic agent; Z88.8 Allergy status to other drugs, medicaments and biological substances; X58.XXXA Exposure to other specified factors, initial encounter; Y93.89 Activity, other specified; Y92.89 Other specified places as the place of occurrence of the external cause; Y99.8 Other external cause status
CPT/HCPCS: 36415; 74176; 80053; 85025; 85027; 85610; 85730; J1200; J3010; J7030; G0378

== ENCOUNTER 2020-11-04 01:10 | Emergency (ER) | payer MEDICAID ==
[~2020-11-04] VITALS: Ht 188 cm; Wt 90.9 kg
--- NOTE | 2020-11-04 01:24 | PHYS DOC ---
Past Medical History Past Medical History: Other Additional Past Medical Histor: ESOPHAGITIS, HIATAL HERNIA Past Surgical History: Appendectomy Additional Past Surgical Histo: BACK SURGERY, KNEE SURGERY Smoking Status: Current Some Day Smoker Alcohol Use: None General Adult EDM: Chief Complaint: HEMATEMESIS/VOMITING BLOOD HPI: HPI: 40 yo homeless M, well known to myself (I admitted in 2019 for rectal fb - have seen pt multiples times at [facility] and [facility]), Review of Systems: Review of Systems: Constitutional: Denies fever or chills. [] Eyes: Denies change in visual acuity. [] HENT: Denies nasal congestion or sore throat. [] Respiratory: Denies cough or shortness of breath. [] Cardiovascular: Denies chest pain or edema. [] GI: Denies abdominal pain, nausea, vomiting, bloody stools or diarrhea. [] : Denies dysuria. [] Musculoskeletal: Denies back pain or joint pain. [] Integument: Denies rash. [] Neurologic: Denies headache, focal weakness or sensory changes. [] Endocrine: Denies polyuria or polydipsia. [] Lymphatic: Denies swollen glands. [] Psychiatric: Denies depression or anxiety. [] Heart Score: Risk Factors: Risk Factors: DM, Current or recent (<one month) smoker, HTN, HLP, family hist ory of CAD, obesity. Risk Scores: Score 0 - 3: 2.5% MACE over next 6 weeks - Discharge Home Score 4 - 6: 20.3% MACE over next 6 weeks - Admit for Clinical Observation Score 7 - 10: 72.7% MACE over next 6 weeks - Early Invasive Strategies Allergies: Allergies: Allergies Coded Allergies Type Severity Reaction Last Updated Verified ketorolac Allergy Severe hives 05/31/20 Yes morphine Allergy Severe hives 05/31/20 Yes haloperidol Allergy Intermediate 06/11/20 Yes ketamine Allergy Intermediate Hives 08/22/20 Yes prochlorperazine Allergy Intermediate restlessness 05/31/20 Yes promethazine Allergy Intermediate Hives 08/22/20 Yes metoclopramide Allergy Mild Hives 08/22/20 Yes Physical Exam: PE: Constitutional: Well developed, well nourished, no acute distress, non-toxic appearance. HENT: Normocephalic, atraumatic, Eyes: EOMI, conjunctiva normal, no discharge. Neck: Normal range of motion, supple, Cardiovascular: S1/2 present, regular rhythm Lungs & Thorax: Speaking in full sentences, bilateral equal chest rise, no tachypnea or increased work of breathing Abdomen: soft, no tenderness, Skin: Warm, dry, no erythema, no rash. [] Back: No tenderness, no CVA tenderness. [] Extremities: No tenderness, no cyanosis, no edema Neurologic: Alert and oriented X 3, normal motor function, normal sensory function, no focal deficits noted. [] Psychologic: Affect normal, judgement normal, mood normal. [] EKG: EKG: Sinus rhythm at 66 bpm, left axis deviation, T wave inversion lead III, normal intervals, no ST elevations or ST depressions Radiology/Procedures: Radiology/Procedures: IMAGING REPORT Signed PATIENT: JOSAFAT DANGELO ACCOUNT: [id number] : 1980 LOCATION: ER AGE: 40 SEX: M EXAM STATUS: REG ER ORD. PHYSICIAN: CYDNEY RODRIGUEZ DO REASON: hematochezia, h/o muiltiple rectal FBs PROCEDURE: ABDOMEN SUPINE & UPRIGHT EXAM: XR ABDOMEN 2V, XR CHEST 2V 11/04/2020 1:39 AM CLINICAL INDICATION: Vomiting blood COMPARISON: Chest radiograph 05/31/2020, abdominal radiograph 07/19/2020 TECHNIQUE: PA and lateral views of the chest. AP, supine, and upright views of abdomen. FINDINGS: CHEST: The heart and mediastinum are normal. Lungs are normally expanded and clear. No pleural effusion or pneumothorax. No acute osseous abnormality. ABDOMEN: Bowel gas pattern is nonspecific and nonobstructive. Normal volume of stool. No pneumoperitoneum. There is a disc prosthesis at L4-L5. No acute osseous abnormality. IMPRESSION: No acute abnormality in the chest or abdomen. Electronically signed by: Johana Vazquez MD (11/04/2020 2:13 AM) [id number] DICTATED and SIGNED BY: JOHANA VAZQUEZ MD DATE: 11/04/20 [id number] 0 Course & Med Decision Making: Course & Med Decision Making Pertinent Labs and Imaging studies reviewed. (See chart for details) History of normocytic anemia -labs at baseline. H/o prior upper SAMANTA study. KNown Will discharge home with strict ED return precautions were given for []. Encouraged urgent outpatient follow-up with PMD and GI for chronic abdominal pain and alleged hematemesis (none in ed), hematology and oncology for anemia. Life-threatening processes were considered but are low suspicion at this time, given history, physical exam and ED workup. Pt was educated on all prescription medications and adverse effects. All patient's questions were answered and pt was stable at time of discharge. Life/limb-threatening differential includes but is not limited to, aortic dissection, aortic aneurysm, acute coronary syndrome, surgical abdomen (appendicitis, cholecystitis, ischemic bowel, strangulated hernia, etc), bowel obstruction or volvulus, bladder outlet obstruction, gastrointestinal bleeding, inflammatory bowel disease, peptic ulcer disease, ACS/CAD, sepsis, diverticular disease, ureterolithiasis, nephrolithiasis, ovarian or testicular torsion, ectopic , vaginal hemorrhage, or genitourinary infection. I spoken with the patient and her caregivers. I explained the patient's condition, diagnoses and treatment plan based on the information available to me at this time. I have answered the patient and her caregiver's questions and addressed any concerns. The patient and her caregivers have a good understanding of patient's diagnosis, condition and treatment plan as can be expected at this point. Vital signs have been stable. Patient's condition is stable and appropriate for discharge from the emergency department. Patient will pursue further outpatient evaluation with primary care physician or other designated or consulting physician as outlined in the discharge instructions. The patient and/or caregivers are agreeable to this plan of care and follow-up instructions have been explained in detail. The patient and/or caregivers have received these instructions in written form and have expressed an understanding of the discharge instructions. The patient and/or caregivers are aware that any significant change of condition or worsening of symptoms should prompt immediate return to this or the closest emergency department or call to 911. Matthew Disclaimer: Matthew Disclaimer: This electronic medical record was generated, in whole or in part, using a voice recognition dictation system. Departure Departure Impression: Primary Impression: Normocytic anemia Additional Impressions: Chronic abdominal pain Drug-seeking behavior Disposition: 01 DC HOME SELF CARE/HOMELESS Condition: STABLE Referrals: NO PCP (PCP) Patient Instructions: Abdominal Pain, Anemia, Nonspecific-Brief, Nausea and Vomiting Additional Instructions: FOLLOW UP WITH GASTROENTEROLOGY: FOR EPIGASTRIC PAIN, NAUSEA, VOMITING Gastroenterology [facility] Address: [address] [place] [address] FOLLOW UP WITH: Hematology/Oncology FOR ANEMIA [facility] Address: [address] [place] [address] Scripts Ondansetron (ONDANSETRON ODT) 4 Mg Tab.rapdis 1 TAB PO PRN Q6-8HRS, #20 TAB Prov: CYDNEY RODRIGUEZ DO 11/04/20 CYDNEY RODRIGUEZ DO Nov 04, 2020 01:24
--- NOTE | 2020-11-04 02:15 | RAD ---
EXAM: XR ABDOMEN 2V, XR CHEST 2V 11/04/2020 1:39 AM CLINICAL INDICATION: Vomiting blood COMPARISON: Chest radiograph 05/31/2020, abdominal radiograph 07/19/2020 TECHNIQUE: PA and lateral views of the chest. AP, supine, and upright views of abdomen. FINDINGS: CHEST: The heart and mediastinum are normal. Lungs are normally expanded and clear. No pleural effusi on or pneumothorax. No acute osseous abnormality. ABDOMEN: Bowel gas pattern is nonspecific and nonobstructive. Normal volume of stool. No pneumoperito neum. There is a disc prosthesis at L4-L5. No acute osseous abnormality. IMPRESSION: No acute abnormality in the chest or abdomen. Electronically signed by: Johana Vazquez MD (11/04/2020 2:13 AM) [id number]
[2020-11-04 02:26] LABS: BASO % 0 % (0-3); EOS # 0.1 x10^3/uL (0.0-0.7); EOS % 3 % (0-3); HEMATOCRIT 31.8 % (39.0-53.0); HEMOGLOBIN 10.3 g/dL (13.0-17.5); LYMPH # 1.1 x10^3/uL (1.0-4.8); LYMPH % 44 % (24-48); MEAN CORPUSCULAR HEMOGLOBIN 29 pg (25-35); MEAN CORPUSCULAR HGB CONC 33 g/dL (31-37); MEAN CORPUSCULAR VOLUME 88 fL (79-100); MONO # 0.3 x10^3/uL (0.0-1.1); MONO % 14 % (0-9); NEUT % 39 % (31-73); PLATELET COUNT 164 x10^3/uL (140-400); RED BLOOD COUNT 3.62 x10^6/uL (4.30-5.70); RED CELL DISTRIBUTION WIDTH 14.9 % (11.5-14.5); WHITE BLOOD COUNT 2.5 x10^3/uL (4.0-11.0)
[2020-11-04 02:35] LABS: CALCIUM 9.2 mg/dL (8.5-10.1); CREATININE 1.2 mg/dL (0.7-1.3); GFR 67.4; POTASSIUM 4.1 mmol/L (3.5-5.1)
[2020-11-04 02:40] LABS: PROTHROMBIN TIME PATIENT 13.3 SEC (11.7-14.0)
[2020-11-04 02:41] LABS: ALBUMIN 4.2 g/dL (3.4-5.0); DIRECT BILIRUBIN 0.1 mg/dL (0.0-0.2); TOTAL BILIRUBIN 0.4 mg/dL (0.2-1.0); TOTAL PROTEIN 7.7 g/dL (6.4-8.2)
[2020-11-04] MEDS ORDERED: DICYCLOMINE 20 MG/2 ML VIAL. IM ONE (03:30)
[2020-11-04] MEDS ORDERED: ONDANSETRON PF 4 MG/2 ML VIAL. IVP ONE (03:30)
[2020-11-04] MEDS ORDERED: FAMOTIDINE 20 MG/2 ML VIAL IVP ONE (03:30)
[2020-11-04 04:30] VITALS: BP 114/58
[2020-11-04] MEDS ORDERED: ONDA4TAB12 PO (05:13)
== END 2020-11-04 05:21 | disposition home or self-care (01) ==
LOC: ER 01:10
DX: D64.9 Anemia, unspecified (principal); G89.29 Other chronic pain; R10.9 Unspecified abdominal pain; Z76.5 Malingerer [conscious simulation]; F17.200 Nicotine dependence, unspecified, uncomplicated; Z90.89 Acquired absence of other organs; Z88.5 Allergy status to narcotic agent; Z88.6 Allergy status to analgesic agent; Z88.4 Allergy status to anesthetic agent; Z88.8 Allergy status to other drugs, medicaments and biological substances
CPT/HCPCS: 36415; 71046; 74021; 80048; 80076; 83690; 85025; 85610; 85730; 93005; 99285; G0480

== ENCOUNTER 2020-11-15 03:51 | Emergency (ER) | payer MEDICAID ==
[~2020-11-15] VITALS: Ht 188 cm; Wt 91.0 kg
[~2020-11-15 03:51] MED LIST changes: +ONDA4TAB12 PO
--- NOTE | 2020-11-15 04:27 | PHYS DOC ---
Past Medical History Past Medical History: Other Additional Past Medical Histor: ESOPHAGITIS, HIATAL HERNIA Past Surgical History: Appendectomy Additional Past Surgical Histo: BACK SURGERY, KNEE SURGERY Smoking Status: Former Smoker Alcohol Use: None Drug Use: None General Adult EDM: Chief Complaint: ABDOMINAL PAIN HPI: HPI: Patient is a 40 year old male who was brought here by EMS due to epigastric abdominal pain that has been going on for 3 weeks. Patient denies any fever, no cough. Patient was evaluated here 10 days ago for the same problem. Patient has been in and out to multiple different hospitals for the same problem. Patient said he has a GI appointment but not until in the middle of December. Patient is on Carafate and Protonix. Patient is not on any blood thinner. Review of Systems: Review of Systems: Constitutional: Denies fever or chills. [] Eyes: Denies change in visual acuity. [] HENT: Denies nasal congestion or sore throat. [] Respiratory: Denies cough or shortness of breath. [] Cardiovascular: Denies chest pain or edema. [] GI: Positive for abdominal pain. : Denies dysuria. [] Musculoskeletal: Denies back pain or joint pain. [] Integument: Denies rash. [] Neurologic: Denies headache, focal weakness or sensory changes. [] Endocrine: Denies polyuria or polydipsia. [] Lymphatic: Denies swollen glands. [] Psychiatric: Denies depression or anxiety. [] Heart Score: Risk Factors: Risk Factors: DM, Current or recent (<one month) smoker, HTN, HLP, family history of CAD, obesity. Risk Scores: Score 0 - 3: 2.5% MACE over next 6 weeks - Discharge Home Score 4 - 6: 20.3% MACE over next 6 weeks - Admit for Clinical Observation Score 7 - 10: 72.7% MACE over next 6 weeks - Early Invasive Strategies Allergies: Allergies: Allergies Coded Allergies Type Severity Reaction Last Updated Verified ketorolac Allergy Severe hives 05/31/20 Yes morphine Allergy Severe hives 05/31/20 Yes haloperidol Allergy Intermediate 06/11/20 Yes ketamine Allergy Intermediate Hives 08/22/20 Yes prochlorperazine Allergy Intermediate restlessness 05/31/20 Yes promethazine Allergy Intermediate Hives 08/22/20 Yes metoclopramide Allergy Mild Hives 08/22/20 Yes Physical Exam: PE: Constitutional: Well developed, well nourished, no acute distress, non-toxic appearance. [] HENT: Normocephalic, atraumatic, bilateral external ears normal, oropharynx moist, no oral exudates, nose normal. [] Eyes: PERRLA, EOMI, conjunctiva normal, no discharge. [] Neck: Normal range of motion, no tenderness, supple, no stridor. [] Cardiovascular:Heart rate regular rhythm, no murmur [] Lungs & Thorax: Bilateral breath sounds clear to auscultation [] Abdomen: Bowel sounds normal, soft, no tenderness, no masses, no pulsatile masses. [] Skin: Warm, dry, no erythema, no rash. [] Back: No tenderness, no CVA tenderness. [] Extremities: No tenderness, no cyanosis, no clubbing, ROM intact, no edema. [] Neurologic: Alert and oriented X 3, normal motor function, normal sensory function, no focal deficits noted. [] Psychologic: Affect normal, judgement normal, mood normal. [] Current Patient Data: Labs: Laboratory Tests Test 11/15/20 04:42 White Blood Count 2.9 x10^3/uL Red Blood Count 3.74 x10^6/uL Hemoglobin 10.7 g/dL Hematocrit 31.9 % Mean Corpuscular Volume 85 fL Mean Corpuscular Hemoglobin 29 pg Mean Corpuscular Hemoglobin Concent 34 g/dL Red Cell Distribution Width 15.4 % Platelet Count 122 x10^3/uL Neutrophils (%) (Auto) 54 % Lymphocytes (%) (Auto) 31 % Monocytes (%) (Auto) 11 % Eosinophils (%) (Auto) 2 % Basophils (%) (Auto) 1 % Neutrophils # (Auto) 1.6 x10^3/uL Lymphocytes # (Auto) 0.9 x10^3/uL Monocytes # (Auto) 0.3 x10^3/uL Eosinophils # (Auto) 0.0 x10^3/uL Basophils # (Auto) 0.0 x10^3/uL Sodium Level 140 mmol/L Potassium Level 3.7 mmol/L Chloride Level 105 mmol/L Carbon Dioxide Level 27 mmol/L Anion Gap 8 Blood Urea Nitrogen 15 mg/dL Creatinine 1.2 mg/dL Estimated GFR (Cockcroft-Gault) 67.4 BUN/Creatinine Ratio 13 Glucose Level 87 mg/dL Calcium Level 9.2 mg/dL Magnesium Level 2.4 mg/dL Total Bilirubin 0.4 mg/dL Aspartate Amino Transf (AST/SGOT) 23 U/L Alanine Aminotransferase (ALT/SGPT) 23 U/L Alkaline Phosphatase 43 U/L Total Protein 7.1 g/dL Albumin 3.9 g/dL Albumin/Globulin Ratio 1.2 Lipase 44 U/L Current Medications Medications (Trade) Dose Ordered Sig/Tess Route PRN Reason Start Time Stop Time Status Last Admin Dose Admin Multi-Ingredient Mouthwash/Gargle (Gi Cocktail) 20 ml 1X ONCE SWSW 11/15/20 05:00 11/15/20 05:01 DC 11/15/20 05:02 Vital Signs: Vital Signs Date Time Temp Pulse Resp B/P (MAP) Pulse Ox O2 Delivery O2 Flow Rate FiO2 11/15/20 04:00 98.2 68 18 127/74 (91) 98 Room Air 98.2 EKG: EKG: [] Radiology/Procedures: Radiology/Procedures: [][facility] [address] [place] [address] IMAGING REPORT Signed PATIENT: JOSAFAT DANGELO ACCOUNT: [id number] : 1980 LOCATION: ER AGE: 40 SEX: M EXAM STATUS: PRE ER ORD. PHYSICIAN: CHELSEA VILLATORO DO REASON: ABDOMINAL PAIN, NAUSEA, VOMITING PROCEDURE: ACUTE ABDOMEN SERIES PA chest and AP upright supine abdomen x-rays HISTORY: Abdominal pain, nausea and vomiting. FINDINGS: Heart and mediastinum are unremarkable. No pulmonary opacities. No pleural effusions. No pneumoperitoneum. L4-5 discectomy and disc prosthesis. Mild gas within the large bowel. No dilated bowel loops or abnormal small bowel air-fluid levels to suggest obstruction. Pelvic phleboliths. IMPRESSION: No acute process in the chest. No bowel obstruction evident. Electronically signed by: Maxx Mckenna MD (11/15/2020 4:48 AM) [facility] [place] DICTATED and SIGNED BY: MAXX MCKENNA MD DATE: 11/15/20 [id number] 0 Course & Med Decision Making: Course & Med Decision Making Pertinent Labs and Imaging studies reviewed. (See chart for details) Patient is a 40-year-old male who presented to ER due to epigastric abdominal pain. X-ray of his abdomen did not show any acute problem, his lab work did not show any significant change from his previous visits. Patient will need to be follow-up with her GI doctor as scheduled. He will continue to take Protonix and Carafate as prescribed. Dragon Disclaimer: Dragon Disclaimer: This electronic medical record was generated, in whole or in part, using a voice recognition dictation system. Departure Departure Impression: Primary Impression: Abdominal pain Disposition: 01 DC HOME SELF CARE/HOMELESS Condition: STABLE Referrals: NO PCP (PCP) VIDYA GREY MD Please call this GI doctor for follow up next week Patient Instructions: Abdominal Pain Additional Instructions: Thank you for visiting our Emergency Department. We appreciate you trusting us with your care. If any additional problems come up don't hesitate to return to visit us. Please follow up with your primary care provider so they can plan additional care if needed and know about the problem that you had. If symptoms worsen come back to the Emergency Department. Any concerning symptoms that start such as chest pain, shortness of air, weakness or numbness on one side of the body, running high fevers or any other concerning symptoms return to the ER. CHELSEA VILLATORO DO Nov 15, 2020 04:27
[2020-11-15 04:50] LABS: BASO % 1 % (0-3); EOS % 2 % (0-3); HEMATOCRIT 31.9 % (39.0-53.0); HEMOGLOBIN 10.7 g/dL (13.0-17.5); LYMPH # 0.9 x10^3/uL (1.0-4.8); LYMPH % 31 % (24-48); MEAN CORPUSCULAR HEMOGLOBIN 29 pg (25-35); MEAN CORPUSCULAR HGB CONC 34 g/dL (31-37); MEAN CORPUSCULAR VOLUME 85 fL (79-100); MONO # 0.3 x10^3/uL (0.0-1.1); MONO % 11 % (0-9); NEUT # 1.6 x10^3/uL (1.8-7.7); NEUT % 54 % (31-73); PLATELET COUNT 122 x10^3/uL (140-400); RED BLOOD COUNT 3.74 x10^6/uL (4.30-5.70); RED CELL DISTRIBUTION WIDTH 15.4 % (11.5-14.5); WHITE BLOOD COUNT 2.9 x10^3/uL (4.0-11.0)
[2020-11-15 04:56] VITALS: BP 123/78
--- NOTE | 2020-11-15 04:59 | RAD ---
PA chest and AP upright supine abdomen x-rays HISTORY: Abdominal pain, nausea and vomiting. FINDINGS: Heart and mediastinum are unremarkable. No pulmonary opacities. No pleural effusions. No pn eumoperitoneum. L4-5 discectomy and disc prosthesis. Mild gas within the large bowel. No dilated jesus l loops or abnormal small bowel air-fluid levels to suggest obstruction. Pelvic phleboliths. IMPRESSION: No acute process in the chest. No bowel obstruction evident. Electronically signed by: Pj Mckenna MD (11/15/2020 4:48 AM) [facility]
[2020-11-15] MEDS ORDERED: LIDO:MAALOX 1:1 20 ML SINGLE DOSE. SWSW ONE (05:00)
[2020-11-15 05:04] LABS: CALCIUM 9.2 mg/dL (8.5-10.1); CREATININE 1.2 mg/dL (0.7-1.3); GFR 67.4; POTASSIUM 3.7 mmol/L (3.5-5.1)
[2020-11-15 05:10] LABS: ALBUMIN 3.9 g/dL (3.4-5.0); ALBUMIN/GLOBULIN RATIO 1.2 (1.0-1.7); MAGNESIUM 2.4 mg/dL (1.8-2.4); TOTAL BILIRUBIN 0.4 mg/dL (0.2-1.0); TOTAL PROTEIN 7.1 g/dL (6.4-8.2)
== END 2020-11-15 05:14 | disposition home or self-care (01) ==
LOC: ER 03:51
DX: R10.13 Epigastric pain (principal); Z87.891 Personal history of nicotine dependence; Z90.89 Acquired absence of other organs; Z88.4 Allergy status to anesthetic agent; Z88.5 Allergy status to narcotic agent; Z88.8 Allergy status to other drugs, medicaments and biological substances
CPT/HCPCS: 36415; 74022; 80053; 83690; 83735; 85025; 99284

== ENCOUNTER 2021-10-25 06:05 | Emergency (ER) | payer SELFPAY ==
[~2021-10-25] VITALS: Ht 188 cm; Wt 90.9 kg
--- NOTE | 2021-10-25 06:40 | PHYS DOC ---
Past Medical History Past Medical History: Other Additional Past Medical Histor: ESOPHAGITIS, HIATAL HERNIA Past Surgical History: Appendectomy Additional Past Surgical Histo: BACK SURGERY, KNEE SURGERY Smoking Status: Former Smoker Alcohol Use: None Drug Use: None General Adult EDM: Chief Complaint: ABDOMINAL PAIN HPI: HPI: Patient is a 41 year old male who presents with left upper quadrant and left mid abdominal pain for the past 3 days. He reports multiple episodes of nausea and vomiting. He denies constipation or diarrhea. He denies melena or hematochezia. He reports after retching once he noticed some blood streaks in his emesis, no katt hematemesis reported. No fevers or chills. No urinary symptoms. No radiation of pain, no flank or back pain. No anorexia. He reports having a previous appendectomy. He reports that he feels like something is "going to explode in my stomach." He has a GI physician, he has had multiple endoscopies. He reports that he has a history of esophagitis and describes what sounds like gastritis. He reports compliance with taking Protonix. He also takes Carafate. No reported history of bowel obstruction. He has a longstanding, several years long in fact, of chronic abdominal pain issues. He has been seen at multiple hospitals throughout the entire [facility] area for various abdominal pain related issues. Review of Systems: Review of Systems: Constitutional: Denies fever or chills. [] HENT: Denies nasal congestion or sore throat. [] Respiratory: Denies cough or shortness of breath. [] Cardiovascular: Denies chest pain or edema. [] GI: Abdominal pain, nausea, vomiting. Denies diarrhea or constipation. Denies melena or hematochezia. : Denies urinary symptoms. Musculoskeletal: Denies back pain or joint pain. [] Integument: Denies rash. [] Neurologic: Denies headache, focal weakness or sensory changes. [] Psychiatric: Anxiety [] Heart Score: C/O Chest Pain: No Risk Factors: Risk Factors: DM, Current or recent (<one month) smoker, HTN, HLP, family history of CAD, obesity. Risk Scores: Score 0 - 3: 2.5% MACE over next 6 weeks - Discharge Home Score 4 - 6: 20.3% MACE over next 6 weeks - Admit for Clinical Observation Score 7 - 10: 72.7% MACE over next 6 weeks - Early Invasive Strategies Allergies: Allergies: Allergies Coded Allergies Type Severity Reaction Last Updated Verified ketorolac Allergy Severe hives 05/31/20 Yes morphine Allergy Severe hives 05/31/20 Yes haloperidol Allergy Intermediate 06/11/20 Yes ketamine Allergy Intermediate Hives 08/22/20 Yes prochlorperazine Allergy Intermediate restlessness 05/31/20 Yes promethazine Allergy Intermediate Hives 08/22/20 Yes metoclopramide Allergy Mild Hives 08/22/20 Yes Physical Exam: PE: Constitutional: Well developed, well nourished, no acute distress, non-toxic appearance. HENT: bilateral external ears normal, oropharynx moist, no oral exudates, nose normal. [] Eyes: Conjunctiva normal, no discharge. No scleral icterus. Neck: Normal range of motion, no tenderness, supple, no stridor. [] Cardiovascular:Heart rate regular rhythm, +2 posterior tibial and +2 radial pulses bilaterally. Lungs & Thorax: Bilateral breath sounds clear to auscultation [] Abdomen: Abdomen is soft, nondistended, normal bowel sounds, tenderness in the left upper quadrant, periumbilical and left mid abdomen. Inconsistent and mild voluntary guarding. No rebound tenderness. No palpable masses or organomegaly. No palpable pulsatile mass. No CVA tenderness. No flank or abdominal ecchymoses Skin: Warm, dry, no erythema, no rash. No jaundice. Back: No tenderness, no CVA tenderness. [] Extremities: No tenderness, no cyanosis, no clubbing, ROM intact, no edema. No calf tenderness Neurologic: Alert and oriented X 3, normal motor function, normal sensory function, no focal deficits noted. [] Psychologic: He is bizarre, he is anxious. [] EKG: EKG: [] Radiology/Procedures: Radiology/Procedures: IMAGING REPORT Signed PATIENT: JOSAFAT DANGELO ACCOUNT: [id number] : 1980 LOCATION: ER AGE: 41 SEX: M EXAM STATUS: REG ER ORD. PHYSICIAN: BUTCH BROOKS DO REASON: generalized abdominal pain, n/v PROCEDURE: CT ABD PELV W/ IV CONTRST ONLY CT ABDOMEN+PELVIS W History: Generalized abdominal pain, nausea and vomiting. Comparison: CT abdomen and pelvis 08/24/2020. Technique: CT of the abdomen and pelvis with intravenous contrast. Findings: The lung bases are clear. The liver, gallbladder, pancreas, spleen, adrenal glands, and kidneys are unremarkable. Small sliding hiatal hernia. Mild gastric wall thickening likely due to underdistention. The small bowel is unremarkable. The appendix is surgically absent. No colonic wall thickening or pericolonic inflammatory changes. No free intraperitoneal air or fluid. No adenopathy. The vasculature is unrem arkable. Small fat-containing umbilical hernia and left inguinal hernia. Small fat in the right inguinal canal. Postsurgical changes from L4-L5 disc replacement. No acute osseous abnormality. Impression: 1. No acute inflammatory changes in the abdomen and pelvis. 2. Small sliding hiatal hernia. 3. Small fat-containing umbilical and left inguinal hernias. ------ Exposure: One or more of the following individualized dose reduction techniques were utilized for this examination: 1. Automated exposure control 2. Adjustment of the mA and/or kV according to patient size 3. Use of iterative reconstruction technique. Electronically signed by: Pj Peters MD (10/25/2021 9:56 AM) [facility] DICTATED and SIGNED BY: PJ PETERS MD DATE: 10/25/21 [id number] 0 Course & Med Decision Making: Course & Med Decision Making Pertinent Labs and Imaging studies reviewed. (See chart for details) The patient is given IV fluids, IV Zofran and 2 doses of IV fentanyl. He has a benign, nonsurgical abdominal exam. He has a longstanding history of chronic abdominal pain issues. No acute life-threatening process or surgical process noted on emergency department work-up or imaging here. No indication for further invasive exams, imaging, no indication for further opiate medications. No indication for admission. I told him to contact his PCP and his GI physician for further evaluation and follow-up. Return precautions are given. Ebenon Disclaimer: Matthew Disclaimer: This electronic medical record was generated, in whole or in part, using a voice recognition dictation system. Departure Departure Impression: Primary Impression: Chronic abdominal pain Disposition: HOME / SELF CARE / HOMELESS Condition: STABLE Referrals: NO PCP (PCP) Patient Instructions: Abdominal Pain (Nonspecific) Additional Instructions: Your ER work-up here today is normal. You have no acute abdominal abnormalities on your CAT scan or your blood work. Use the nausea medicine as needed. Please contact your primary care doctor and your GI doctor for further evaluation and treatment. Return to the ER for any acute changes in pain, unco ntrolled vomiting, fever 100.4 or higher, dehydration or other concerns. Scripts Ondansetron Hcl (ONDANSETRON HCL) 4 Mg Tablet 1 TAB PO PRN Q6HRS for vomiting, #20 TAB 1 Refill Prov: BUTCH BROOKS DO 10/25/21 BUTCH BROOKS DO Oct 25, 2021 06:40
[2021-10-25] MEDS ORDERED: fentaNYL PF VIAL 100 MCG/2 ML VIAL IVP ONE ×2 (07:00→09:30)
[2021-10-25] MEDS ORDERED: IV NORMAL SALINE 1000ML BAG 1,000 ML IV ONE (07:00)
[2021-10-25] MEDS ORDERED: ONDANSETRON PF 4 MG/2 ML VIAL. IVP ONE (07:00)
[2021-10-25] MEDS ORDERED: IOHEXOL 300 MG/ML 100ML VIAL. IV ONE (07:45)
[2021-10-25 07:57] LABS: BILIRUBIN,URINE NEGATIVE (NEG); CLARITY,URINE CLEAR; COLOR,URINE YELLOW; NITRITE,URINE NEGATIVE (NEG); PROTEIN,URINE NEGATIVE (NEG-TRACE); UROBILINOGEN,URINE 0.2 mg/dL (0.2 mg/dL)
[2021-10-25] MEDS ORDERED: CONTRAST GIVEN. MC PRN (08:00)
[2021-10-25 08:31] LABS: BACTERIA,URINE 0 /HPF (0-FEW); RBC,URINE 0 /HPF (0-2); WBC,URINE OCC /HPF (0-4)
[2021-10-25 08:42] LABS: BARBITURATES POS (NEG); BENZODIAZEPINES NEG (NEG); CANNABINOIDS NEG (NEG); COCAINE NEG (NEG); METHADONE NEG (NEG); OPIATES NEG (NEG); PHENCYCLIDINE NEG (NEG)
[2021-10-25 08:45] LABS: AMPHETAMINE/METHAMPHETAMINE NEG (NEG)
[2021-10-25 08:59] LABS: BASO % 1 % (0-3); EOS # 0.1 x10^3/uL (0.0-0.7); EOS % 2 % (0-3); HEMATOCRIT 40.9 % (39.0-53.0); HEMOGLOBIN 13.8 g/dL (13.0-17.5); LYMPH # 0.7 x10^3/uL (1.0-4.8); LYMPH % 18 % (24-48); MEAN CORPUSCULAR HEMOGLOBIN 33 pg (25-35); MEAN CORPUSCULAR HGB CONC 34 g/dL (31-37); MEAN CORPUSCULAR VOLUME 97 fL (79-100); MONO # 0.6 x10^3/uL (0.0-1.1); MONO % 14 % (0-9); NEUT # 2.7 x10^3/uL (1.8-7.7); NEUT % 66 % (31-73); PLATELET COUNT 129 x10^3/uL (140-400); RED BLOOD COUNT 4.22 x10^6/uL (4.30-5.70); RED CELL DISTRIBUTION WIDTH 15.7 % (11.5-14.5); WHITE BLOOD COUNT 4.1 x10^3/uL (4.0-11.0)
[2021-10-25 09:09] LABS: CALCIUM 8.2 mg/dL (8.5-10.1); CREATININE 1.3 mg/dL (0.7-1.3); GFR 61.1; POTASSIUM 4.6 mmol/L (3.5-5.1)
[2021-10-25 09:14] LABS: ALBUMIN 3.5 g/dL (3.4-5.0); ALBUMIN/GLOBULIN RATIO 0.9 (1.0-1.7); TOTAL BILIRUBIN 0.1 mg/dL (0.2-1.0); TOTAL PROTEIN 7.2 g/dL (6.4-8.2)
--- NOTE | 2021-10-25 09:59 | RAD ---
CT ABDOMEN+PELVIS W History: Generalized abdominal pain, nausea and vomiting. Comparison: CT abdomen and pelvis 08/24/2020. Technique: CT of the abdomen and pelvis with intravenous contrast. Findings: The lung bases are clear. The liver, gallbladder, pancreas, spleen, adrenal glands, and kidneys are u nremarkable. Small sliding hiatal hernia. Mild gastric wall thickening likely due to underdistention. The small mallory wel is unremarkable. The appendix is surgically absent. No colonic wall thickening or pericolonic inf lammatory changes. No free intraperitoneal air or fluid. No adenopathy. The vasculature is unremarkable. Small fat-conta ining umbilical hernia and left inguinal hernia. Small fat in the right inguinal canal. Postsurgical changes from L4-L5 disc replacement. No acute osseous abnormality. Impression: 1. No acute inflammatory changes in the abdomen and pelvis. 2. Small sliding hiatal hernia. 3. Small fat-containing umbilical and left inguinal hernias. ------ Exposure: One or more of the following individualized dose reduction techniques were utilized for thi s examination: 1. Automated exposure control 2. Adjustment of the mA and/or kV according to patient size 3. Use of iterative reconstruction technique. Electronically signed by: Pj Peters MD (10/25/2021 9:56 AM) [facility]
[2021-10-25] MEDS ORDERED: ONDA-84 PO (10:27)
[2021-10-25 10:33] VITALS: BP 117/77
== END 2021-10-25 10:47 | disposition home or self-care (01) ==
LOC: ER 06:05
DX: G89.29 Other chronic pain (principal); R10.12 Left upper quadrant pain; Z20.822 Contact with and (suspected) exposure to COVID-19; R11.2 Nausea with vomiting, unspecified; K44.9 Diaphragmatic hernia without obstruction or gangrene; Z90.89 Acquired absence of other organs; Z87.891 Personal history of nicotine dependence; Z88.1 Allergy status to other antibiotic agents; Z88.4 Allergy status to anesthetic agent; Z88.5 Allergy status to narcotic agent; Z88.6 Allergy status to analgesic agent; Z88.8 Allergy status to other drugs, medicaments and biological substances
CPT/HCPCS: 36415; 74177; 80053; 80307; 81001; 83690; 85025; 96361; 96374; 96375; 96376; 99285; J2405; J3010; J7030; Q9967

== ENCOUNTER 2021-12-20 14:01 | Emergency (ER) | payer MEDICAID ==
[~2021-12-20 14:01] MED LIST changes: +ONDA-84 PO
== END 2021-12-20 14:42 | disposition left against medical advice (07) ==
LOC: ER 14:01
DX: F41.9 Anxiety disorder, unspecified (principal); R07.89 Other chest pain; Z53.21 Procedure and treatment not carried out due to patient leaving prior to being seen by health care provider